=== PATIENT | male | born 1990 | race Caucasian/White ===

== ENCOUNTER 2016-09-09 02:31 | Emergency (ER) | payer MEDICAID ==
[2016-09-09 02:45] VITALS: BP 132/91
[2016-09-09] MEDS ORDERED: Ketorolac 60 MG/2 ML SDV IM ONE (03:02)
--- NOTE | 2016-09-09 03:12 | EDM.PDOC ---
[id number] Complaint: PINCH NERVE IN LEG Time Seen by Provider: 09/09/16 02:50 Source of Information: Reports: Patient History Limitations: Reports: No Limitations - History of Present Illness INITIAL COMMENTS - FREE TEXT/NARRATIVE: 26-year-old morbidly obese male fell asleep sitting in a chair 2 nights ago that had metal arms and slept with a prolonged pressure pushing on his left buttock area. When he awoke he had some soreness in the left buttock, which led to some muscle spasms in the dorsal left leg and buttock area. This is now getting intermittent pain and spasm and is having difficulty walking. He has chronic anxiety and pain makes him very anxious. He weighed 410 pounds when I saw him last January, he is now close to 460 pounds. He has had no fever or chills, he has no bruising Onset: Gradual (Over the last 2 days) Location: Reports: Lower Extremity, Left Severity: Moderate Worsens with: Reports: Other (Trying to stand causes increased pain), Movement Left Leg Pain Score (Numeric/FACES): 9 - Related Data Allergies Allergy/AdvReac Type Severity Reaction Status Date / Time No Known Allergies Allergy Verified 12/30/15 07:34 Home Meds: Home Meds Lisinopril [Lisinopril] 30 mg PO DAILY 09/06/15 [History] Zolpidem [Ambien] 10 mg PO BEDTIME 09/06/15 [History] Atenolol 100 mg PO DAILY 09/07/15 [History] Cholecalciferol (Vitamin D3) [D-2000] 2,000 unit PO DAILY 09/07/15 [History] Desmopressin [Desmopressin] 0.4 mg PO BEDTIME 09/07/15 [History] Divalproex Sodium [Depakote] 1,500 mg PO BEDTIME 09/07/15 [History] Glucosam/Chondroit/C/Manganese [Cosamin Ds Capsule] 1 each PO DAILY 09/07/15 [ History] Multivitamin [Multi-Vitamin Daily] 1 each PO DAILY 09/07/15 [History] [place]-3/DHA/Epa/Fish Oil [Fish Oil] 1,000 mg PO DAILY 09/07/15 [History] Paliperidone Palmitate [Invega Sustenna] 156 mg IM Q30D 09/07/15 [History] Pantoprazole [Protonix] 40 mg PO DAILY 09/07/15 [History] Sertraline [Zoloft] 100 mg PO DAILY 09/20/15 [History] ALPRAZolam [Xanax XR] 2 mg PO DAILY 02/16/16 [History] Past Medical History HEENT History: Reports: Impaired Vision Cardiovascular History: Reports: Hypertension Gastrointestinal History: Reports: Chronic Constipation, GERD Genitourinary History: Reports: Other (See Below) Other Genitourinary History: Nocturnal enuresis, nephrogenic diabetes insipidus Musculoskeletal History: Reports: Gout, Osteoarthritis Neurological History: Reports: Concussion Psychiatric History: Reports: Anxiety, Bipolar, Depression, Panic Attack, Psych Hospitalization(s), Schizophrenia Endocrine/Metabolic History: Reports: Hypothyroidism, Obesity/BMI 30+ - Infectious Disease History Infectious Disease History: Reports: Chicken Pox Social & Family History - Family History Family Medical History: Unobtainable - Tobacco Use Smoking Status *Q: Light Tobacco Smoker Years of Tobacco use: 1 Packs/Tins Daily: 1 Second Hand Smoke Exposure: No - Caffeine Use Caffeine Use: Reports: Coffee, Soda - Alcohol Use Days Per Week of Alcohol Use: 1 Number of Drinks Per Day: 6 Total Drinks Per Week: 6 - Recreational Drug Use Recreational Drug Use: No Drug Use in Last 12 Months: No Review of Systems - Review of Systems Review Of Systems: See Below Constitutional: Denies: Fever Respiratory: Denies: Shortness of Breath Cardiovascular: Denies: Chest Pain GI/Abdominal: Denies: Abdominal Pain Musculoskeletal: Reports: Leg Pain Psychiatric: Reports: Anxiety Trauma Exam - Physical Exam Exam: See Below Exam Limited By: Physical Impairment (Patient is so morbidly obese he is difficult to examine) General Appearance: Reports: Alert, No Apparent Distress Head: Reports: Atraumatic Respiratory Exam: Reports: No Respiratory Distress Extremities: No Evidence of Injury, Pain with Movement (He has increased pain when the left leg is dependent and when I passively flex his left hip it feels better. He has no straight leg raising pain or radiculopathy.) Course - Vital Signs Last Recorded V/S: Last Vital Signs Temp 97.6 F 09/09/16 02:44 Pulse 117 H 09/09/16 02:44 Resp 16 09/09/16 02:44 BP 132/91 H 09/09/16 02:44 Pulse Ox 93 L 05/15/17 02:44 - Orders/Labs/Meds Meds: Medications Discontinued Medications Generic Name Dose Route Start Last Admin Trade Name Braeden ROACH Reason Stop Dose Admin Ketorolac Tromethamine 60 mg 09/09/16 03:02 09/09/16 03:06 Toradol IM 09/09/16 03:03 60 mg ONETIME ONE Administration - Re-Assessments/Exams Free Text/Narrative Re-Assessment/Exam: 09/09/16 03:12 Patient was given 60 mg of Toradol IM. 09/09/16 03:50 After the patient was given a Toradol shot, 45 minutes later he was able to ambulate with a walker. He still had marked difficulty getting up from a sitting position but once he was standing and ambulating he did much better. He was discharged with 12 hydrocodone to help with pain over the next 2 days and he is to increase activity as tolerated. They do have a walker at home that he can use. If this is not significantly improved in 2-3 days he should recheck. Departure - Departure Time of Disposition: 04:09 Disposition: Home, Self-Care 01 Condition: fair Clinical Impression: Sciatica of left side - Discharge Information Instructions: Sciatica Referrals: PCP,None [Primary Care Provider] - Forms: ED Department Discharge Care Plan Goals: Continue with ibuprofen and add stronger pain medication as prescribed. Increase activity as tolerated recheck in 2-3 days if not improving satisfactorily. Return sooner if worsening or unable to move around at home.
== END 2016-09-09 04:09 | disposition home or self-care (01) ==
LOC: JP.ED 02:31
DX: M54.32 Sciatica, left side (principal); I10 Essential (primary) hypertension; K21.9 Gastro-esophageal reflux disease without esophagitis; F41.0 Panic disorder [episodic paroxysmal anxiety]; F32.9 Major depressive disorder, single episode, unspecified; F31.9 Bipolar disorder, unspecified; E03.9 Hypothyroidism, unspecified; F17.210 Nicotine dependence, cigarettes, uncomplicated; E66.9 Obesity, unspecified; Z68.44 Body mass index [BMI] 60.0-69.9, adult; Z79.899 Other long term (current) drug therapy
CPT/HCPCS: 96372; 99283; J1885

== ENCOUNTER 2016-09-13 13:23 | Emergency (ER) | payer MEDICAID ==
[2016-09-13 13:40] VITALS: BP 151/85
[2016-09-13] MEDS ORDERED: Ketorolac 60 MG/2 ML SDV IM ONE (13:55)
--- NOTE | 2016-09-13 14:17 | EDM.PDOC ---
[id number] Complaint: SCIATIC PAIN Time Seen by Provider: 09/13/16 13:50 Source of Information: Reports: Patient History Limitations: Reports: No Limitations - History of Present Illness INITIAL COMMENTS - FREE TEXT/NARRATIVE: 26-year-old male in with persistent left hip and thigh discomfort. He was seen 2 nights ago and was unable to bear weight or get up out of the chair. He has used up his hydrocodone and is wondering if he can get more pain medications. However the patient is moving freely now, walking up and down the hallway and getting in and out of the chair without significant discomfort. Onset: Gradual (Over the past 4 days) Location: Reports: Other (Left upper leg and lateral left buttock) Severity: Mild - Related Data Allergies Allergy/AdvReac Type Severity Reaction Status Date / Time No Known Allergies Allergy Verified 12/30/15 07:34 Home Meds: Home Meds Lisinopril [Lisinopril] 30 mg PO DAILY 09/06/15 [History] Zolpidem [Ambien] 10 mg PO BEDTIME 09/06/15 [History] Atenolol 100 mg PO DAILY 09/07/15 [History] Cholecalciferol (Vitamin D3) [D-2000] 2,000 unit PO DAILY 09/07/15 [History] Desmopressin [Desmopressin] 0.4 mg PO BEDTIME 09/07/15 [History] Divalproex Sodium [Depakote] 1,500 mg PO BEDTIME 09/07/15 [History] Glucosam/Chondroit/C/Manganese [Cosamin Ds Capsule] 1 each PO DAILY 09/07/15 [ History] Multivitamin [Multi-Vitamin Daily] 1 each PO DAILY 09/07/15 [History] [place]-3/DHA/Epa/Fish Oil [Fish Oil] 1,000 mg PO DAILY 09/07/15 [History] Paliperidone Palmitate [Invega Sustenna] 156 mg IM Q30D 09/07/15 [History] Pantoprazole [Protonix] 40 mg PO DAILY 09/07/15 [History] Sertraline [Zoloft] 100 mg PO DAILY 09/20/15 [History] ALPRAZolam [Xanax XR] 2 mg PO DAILY 02/16/16 [History] Past Medical History HEENT History: Reports: Impaired Vision Cardiovascular History: Reports: Hypertension Gastrointestinal History: Reports: Chronic Constipation, GERD Genitourinary History: Reports: Other (See Below) Other Genitourinary History: Nocturnal enuresis, nephrogenic diabetes insipidus Musculoskeletal History: Reports: Gout, Osteoarthritis Neurological History: Reports: Concussion Psychiatric History: Reports: Anxiety, Bipolar, Depression, Panic Attack, Psych Hospitalization(s), Schizophrenia Endocrine/Metabolic History: Reports: Hypothyroidism, Obesity/BMI 30+ - Infectious Disease History Infectious Disease History: Reports: Chicken Pox Social & Family History - Family History Family Medical History: Unobtainable - Tobacco Use Smoking Status *Q: Current Every Day Smoker Years of Tobacco use: 1 Packs/Tins Daily: 1 Second Hand Smoke Exposure: No - Caffeine Use Caffeine Use: Reports: Coffee, Soda - Alcohol Use Days Per Week of Alcohol Use: 1 Number of Drinks Per Day: 6 Total Drinks Per Week: 6 - Recreational Drug Use Recreational Drug Use: No Drug Use in Last 12 Months: No Review of Systems - Review of Systems Review Of Systems: See Below Constitutional: Denies: Fever Respiratory: Denies: Shortness of Breath Cardiovascular: Denies: Chest Pain GI/Abdominal: Denies: Abdominal Pain Skin: Reports: Other (Some erythema, chronic, of the lower extremities) Trauma Exam - Physical Exam Exam: See Below Exam Limited By: No Limitations General Appearance: Reports: Alert, No Apparent Distress Head: Reports: Atraumatic Respiratory Exam: Reports: No Respiratory Distress Extremities: No Evidence of Injury, Other (Now is bearing weight with minimal pain, ambulating without pain) Course - Vital Signs Last Recorded V/S: Last Vital Signs Temp 97.3 F 09/13/16 13:38 Pulse 76 09/13/16 13:38 Resp 14 09/13/16 13:38 BP 151/85 H 09/13/16 13:38 Pulse Ox 94 L 09/13/16 13:38 - Orders/Labs/Meds Meds: Medications Discontinued Medications Generic Name Dose Route Start Last Admin Trade Name Braeden PRN Reason Stop Dose Admin Ketorolac Tromethamine 60 mg 09/13/16 13:55 09/13/16 14:05 Toradol IM 09/13/16 13:56 60 mg ONETIME ONE Administration - Re-Assessments/Exams Free Text/Narrative Re-Assessment/Exam: 09/13/16 14:15 Patient was given another injection of Toradol 60 mg IM, and 10 additional 10 mg ketorolac doses to take 3 times a day for the next 3 days. No further narcotics are necessary at this time, he can return if worsening or concerns. 09/13/16 16:14 After his father arrived we arranged through social worker clinical a home care visit and this patient may need assistance and his father hopefully understands he needs to control the enabling Departure - Departure Time of Disposition: 16:00 Disposition: Home, Self-Care 01 Condition: good Clinical Impression: Sciatica of left side - Discharge Information Instructions: Sciatica, [id number] Referrals: Vic Holt MD [Primary Care Provider] - ([facility] referral made. [facility] contacted. [facility].) Forms: ED Department Discharge Care Plan Goals: Take the medication 3 times a day until gone, and continue to increase activity as tolerated. Return for recheck with your primary provider if not improving satisfactorily, or return to ER if worsening or concerns.
== END 2016-09-13 16:02 | disposition home or self-care (01) ==
LOC: JP.ED 13:23
DX: M54.32 Sciatica, left side (principal); I10 Essential (primary) hypertension; K21.9 Gastro-esophageal reflux disease without esophagitis; F41.9 Anxiety disorder, unspecified; F17.210 Nicotine dependence, cigarettes, uncomplicated; F32.9 Major depressive disorder, single episode, unspecified; E03.9 Hypothyroidism, unspecified; E66.9 Obesity, unspecified; M10.9 Gout, unspecified; M19.90 Unspecified osteoarthritis, unspecified site; Z68.30 Body mass index [BMI] 30.0-30.9, adult; Z79.899 Other long term (current) drug therapy
CPT/HCPCS: 96372; 99283; J1885

== ENCOUNTER 2016-11-26 11:15 | Inpatient (IN) | payer MEDICAID ==
[2016-11-26] MEDS ORDERED: Sodium Chloride 0.9% 1,000 ML IV SCH (11:45)
--- NOTE | 2016-11-26 12:34 | EDM.PDOC ---
ED HPI GENERAL MEDICAL PROBLEM - General Chief Complaint: General Stated Complaint: MEDICAL VIA [facility]TH Time Seen by Provider: 11/26/16 12:15 Source of Information: Reports: Patient, EMS Notes Reviewed, Family History Limitations: Reports: No Limitations - History of Present Illness INITIAL COMMENTS - FREE TEXT/NARRATIVE: pt feels he has been having more problems with his sciatic nerve..He did fall in the apartment today. He was not able to walk as he usually does . He was taken out the window of his apartment. He was found to have n infection involving the lower portion of his body. Onset: Gradual Duration: Day(s):, Getting Worse Location: Reports: Abdomen, Lower Extremity, Left, Lower Extremity, Right Quality: Reports: Other ( He is having pain in the left axilla) Severity: Moderate Associated Symptoms: Reports: Other ( pain in his back and going down his left leg. ) - Related Data Allergies Allergy/AdvReac Type Severity Reaction Status Date / Time No Known Allergies Allergy Verified 11/26/16 11:47 Home Meds: Home Meds Lisinopril [Lisinopril] 30 mg PO DAILY 09/06/15 [History] Zolpidem [Ambien] 10 mg PO BEDTIME 09/06/15 [History] Atenolol 100 mg PO DAILY 09/07/15 [History] Cholecalciferol (Vitamin D3) [D-2000] 2,000 unit PO DAILY 09/07/15 [History] Divalproex Sodium [Depakote] 1,500 mg PO BEDTIME 09/07/15 [History] Glucosam/Chondroit/C/Manganese [Cosamin Ds Capsule] 1 each PO DAILY 09/07/15 [ History] Multivitamin [Multi-Vitamin Daily] 1 each PO DAILY 09/07/15 [History] [place]-3/DHA/Epa/Fish Oil [Fish Oil] 1,000 mg PO DAILY 09/07/15 [History] Paliperidone Palmitate [Invega Sustenna] 156 mg IM Q30D 09/07/15 [History] Pantoprazole [Protonix] 40 mg PO DAILY 09/07/15 [History] Sertraline [Zoloft] 100 mg PO DAILY 09/20/15 [History] ALPRAZolam [Xanax XR] 2 mg PO DAILY 02/16/16 [History] Past Medical History HEENT History: Reports: Impaired Vision Cardiovascular History: Reports: Hypertension Gastrointestinal History: Reports: Chronic Constipation, GERD Genitourinary History: Reports: Other (See Below) Other Genitourinary History: Nocturnal enuresis, nephrogenic diabetes insipidus Musculoskeletal History: Reports: Gout, Osteoarthritis Neurological History: Reports: Concussion Psychiatric History: Reports: Anxiety, Bipolar, Depression, Panic Attack, Psych Hospitalization(s), Schizophrenia Endocrine/Metabolic History: Reports: Hypothyroidism, Obesity/BMI 30+ - Infectious Disease History Infectious Disease History: Reports: Chicken Pox Social & Family History - Family History Family Medical History: Unobtainable - Tobacco Use Smoking Status *Q: Current Every Day Smoker Years of Tobacco use: 1 Packs/Tins Daily: 1 Second Hand Smoke Exposure: No - Caffeine Use Caffeine Use: Reports: Coffee, Soda - Alcohol Use Days Per Week of Alcohol Use: 1 Number of Drinks Per Day: 6 Total Drinks Per Week: 6 - Recreational Drug Use Recreational Drug Use: No Drug Use in Last 12 Months: No ED ROS GENERAL - Review of Systems Review Of Systems: See Below Constitutional: Reports: No Symptoms HEENT: Reports: No Symptoms Respiratory: Reports: No Symptoms Cardiovascular: Reports: No Symptoms Endocrine: Reports: No Symptoms GI/Abdominal: Reports: Other (pain in the left axilla and lower leg and lower portion of the abdoman. He has been having bms. He has been passing his urine. ) Musculoskeletal: Reports: No Symptoms Skin: Reports: No Symptoms ED EXAM, GENERAL - Physical Exam Exam: See Below Free Text/Narrative:: Pt has reached a level where he has difficulty moving about. He has not showered for the past 2 days. He has not vomited. He has pain in the left axilla and in the groin. He is getting wet when he goes to urinate. Exam Limited By: No Limitations General Appearance: Alert, Anxious, Moderate Distress Ears: Normal TMs Nose: Normal Inspection Throat/Mouth: Normal Inspection Head: Atraumatic Neck: Normal Inspection Respiratory/Chest: No Respiratory Distress Cardiovascular: Regular Rate, Rhythm GI/Abdominal: Other (upper portion is soft. The lower portion of the abdoman is firm and indurated. ) (Male) Exam: Other ( The penis is barely visable but we were able to get a lord cath in. ) Rectal (Males) Exam: Deferred Back Exam: Other ( tender on the left side. ) Extremities: Other (Pt has marked induration in the inner aspect of the thisghes. The skin is redened but does not feel hot. ) Neurological: Alert, Oriented Psychiatric: Depressed Mood Course - Vital Signs Last Recorded V/S: Last Vital Signs Temp 36.7 C 11/26/16 12:13 Pulse 108 H 11/26/16 12:13 Resp 24 H 11/26/16 12:13 BP 123/79 11/26/16 12:13 Pulse Ox 94 L 11/26/16 12:13 - Orders/Labs/Meds Orders: Active Orders 24 hr Category Date Time Status Lord Catheter Insertion [Insert Urinary Catheter] [OM. Care 11/26/16 12:00 Ordered PC] Q24H Urinary Catheter Assessment [RC] ASDIRECTED Care 11/26/16 11:53 Active CRP [C-REACTIVE PROTEIN] [CHEM] Stat Lab 11/26/16 12:24 Ordered CULTURE BLOOD [BC] Urgent Lab 11/26/16 11:40 Received CULTURE BLOOD [BC] Urgent Lab 11/26/16 11:44 Received Sodium Chloride 0.9% [Normal Saline] 1,000 ml Med 11/26/16 11:45 Active IV ASDIRECTED Blood Culture x2 Reflex Set [OM.PC] Urgent Oth 11/26/16 11:38 Ordered Medication Orders Sodium Chloride (Normal Saline) 1,000 mls @ 500 mls/hr IV ASDIRECTED MIKE Labs: Laboratory Tests 11/26/16 11/26/16 11/26/16 Range/Units 11:40 11:40 11:50 WBC 10.0 (4.5-11.0) K/uL RBC 4.66 (4.30-5.90) M/uL Hgb 12.0 D (12.0-15.0) g/dL Hct 40.2 (40.0-54.0) % MCV 86 (80-98) fL MCH 26 L (27-31) pg MCHC 30 L (32-36) % Plt Count 269 (150-400) K/uL Neut % (Auto) 78 H (36-66) % Lymph % (Auto) 11 L (24-44) % [place] % (Auto) 10 H (2-6) % Eos % (Auto) 0 L (2-4) % Baso % (Auto) 1 (0-1) % Sodium 136 L (140-148) mmol/L Potassium 4.8 (3.6-5.2) mmol/L Chloride 100 (100-108) mmol/L Carbon Dioxide 33 H (21-32) mmol/L Anion Gap 7.8 (5.0-14.0) mmol/L BUN 31 H D (7-18) mg/dL Creatinine 1.2 D (0.8-1.3) mg/dL Est Cr Clr Drug Dosing 93.28 mL/min Estimated GFR (MDRD) > 60 (>60) Glucose 79 (74-106) mg/dL Calcium 8.8 (8.5-10.1) mg/dL Total Bilirubin 1.4 H D (0.2-1.0) mg/dL AST 23 (15-37) U/L ALT 21 D (12-78) U/L Alkaline Phosphatase 84 (46-116) U/L Total Protein 7.3 (6.4-8.2) g/dL Albumin 2.9 L (3.4-5.0) g/dL Globulin 4.4 H (2.3-3.5) g/dL Albumin/Globulin Ratio 0.7 L (1.2-2.2) Urine Color Yellow Urine Appearance Slightly cloudy Urine pH 5.0 (4.5-8.0) Ur Specific [place] 1.010 (1.008-1.030) Urine Protein Trace (NEGATIVE) mg/dL Urine Glucose (UA) Normal (NEGATIVE) mg/dL Urine Ketones Negative (NEGATIVE) mg/dL Urine Occult Blood Negative (NEGATIVE) Urine Nitrite Negative (NEGAITVE) Urine Bilirubin Small (NEGATIVE) Urine Urobilinogen 4 (NORMAL) mg/dL Ur Leukocyte Esterase Negative (NEGATIVE) Urine RBC 0-5 (0-5) Urine WBC 0-5 (0-5) Ur Epithelial Cells Few Amorphous Sediment Few Urine Bacteria Few Urine Mucus Few Meds: Medications Generic Name Dose Route Start Last Admin Trade Name Freq PRN Reason Stop Dose Admin Sodium Chloride 1,000 mls @ 500 mls/hr 11/26/16 11:45 Normal Saline IV ASDIRECTED MIKE - Re-Assessments/Exams Free Text/Narrative Re-Assessment/Exam: 11/26/16 12:41 Pt does not have a fever or an elevation in his wbc. Departure - Departure Time of Disposition: 12:41 Disposition: Admitted As Inpatient 66 Condition: Fair Clinical Impression: Fluid overload, Cellulitis, Obesity - Discharge Information Forms: ED Department Discharge Care Plan Goals: admit to Dr ortiz. - My Orders Last 24 Hours: My Active Orders 11/26/16 11:38 Blood Culture x2 Reflex Set [OM.PC] Urgent 11/26/16 11:40 CULTURE BLOOD [BC] Urgent 11/26/16 11:44 CULTURE BLOOD [BC] Urgent 11/26/16 11:45 Sodium Chloride 0.9% [Normal Saline] 1,000 ml IV ASDIRECTED 11/26/16 11:53 Urinary Catheter Assessment [RC] ASDIRECTED 11/26/16 12:00 Lord Catheter Insertion [Insert Urinary Catheter] [OM.PC] Q24H 11/26/16 12:24 CRP [C-REACTIVE PROTEIN] [CHEM] Stat - Assessment/Plan Last 24 Hours: My Active Orders 11/26/16 11:38 Blood Culture x2 Reflex Set [OM.PC] Urgent 11/26/16 11:40 CULTURE BLOOD [BC] Urgent 11/26/16 11:44 CULTURE BLOOD [BC] Urgent 11/26/16 11:45 Sodium Chloride 0.9% [Normal Saline] 1,000 ml IV ASDIRECTED 11/26/16 11:53 Urinary Catheter Assessment [RC] ASDIRECTED 11/26/16 12:00 Lord Catheter Insertion [Insert Urinary Catheter] [OM.PC] Q24H 11/26/16 12:24 CRP [C-REACTIVE PROTEIN] [CHEM] Stat
[2016-11-26] MEDS ORDERED: Acetaminophen 325 MG Tab PO PRN (14:33)
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
[2016-11-26] MEDS ORDERED: Furosemide 100 MG in Sodium Chloride 0.9% 90 ML IV SCH (15:15)
[2016-11-26] MEDS: Furosemide 20 MG/2 ML VIAL IVPUSH SCH ×3 (18:03→22:31)
[2016-11-26] MEDS: Nicotine Polacrilex 2 MG Gum CHEW PRN (18:50)
[2016-11-26] MEDS: Ketorolac 60 MG/2 ML SDV IM PRN (18:50)
[2016-11-26] MEDS ORDERED: ALPRAZolam 0.5 MG Tab PO SCH (21:00)
[2016-11-26] MEDS: Zolpidem 5 MG Tab PO SCH (22:27)
[2016-11-26] MEDS: Divalproex Sodium Delayed-Release 250 MG Tab.CR PO SCH (22:28)
[2016-11-27] MEDS: Furosemide 20 MG/2 ML VIAL IVPUSH SCH ×5 (02:34→20:11)
[2016-11-27] MEDS ORDERED: Rivaroxaban 15 MG Tab PO SCH (08:00)
[2016-11-27] MEDS ORDERED: Furosemide 20 MG/2 ML VIAL IVPUSH SCH (08:00)
[2016-11-27] MEDS ORDERED: Sodium Chloride 0.9% 10 ML Syringe FLUSH PRN (08:27)
[2016-11-27] MEDS ORDERED: Iopamidol 755 Mg/ML 100 ML Bottle IV SCH (08:30)
[2016-11-27] MEDS ORDERED: Sodium Chloride 0.9% 100 ML IV SCH (08:30)
--- NOTE | 2016-11-27 08:31 | PCM.PN ---
- General Info Date of Service: 11/27/16 Functional Status: Reports: Pain Controlled - Review of Systems General: Reports: Weakness Pulmonary: Reports: Shortness of Breath Cardiovascular: Reports: Palpitations, Edema Genitourinary: Reports: Other (cath. in place) Psychiatric: Reports: Depression - Patient Data Vitals - Most Recent: Last Vital Signs Temp 97.5 F 11/27/16 07:23 Pulse 129 H 11/27/16 07:45 Resp 58 H 11/27/16 07:45 BP 141/84 H 11/27/16 07:45 Pulse Ox 94 L 11/27/16 07:55 Weight - Most Recent: 535 lb I&O - Last 24 Hours: Intake & Output 11/26/16 11/27/16 11/27/16 22:59 06:59 14:59 Intake Total 1909 1430 Output Total 0284 6349 Balance -2991 -3256 Lab Results Last 24 Hours: Laboratory Results - last 24 hr 11/27/16 11/27/16 11/27/16 Range/Units 06:05 06:19 06:19 WBC 9.3 (4.5-11.0) K/uL RBC 4.77 (4.30-5.90) M/uL Hgb 12.4 (12.0-15.0) g/dL Hct 41.9 (40.0-54.0) % MCV 88 (80-98) fL MCH 26 L (27-31) pg MCHC 30 L (32-36) % Plt Count 238 (150-400) K/uL D-Dimer, Quantitative (0.0-400.0) ng/mL Puncture Site L brachial ABG pH 7.368 (7.350-7.450) ABG pCO2 61.4 H (35.0-42.0) mmHg ABG pO2 57.6 L (75.0-100.0) mmHg ABG HCO3 34.5 H (22.0-26.0) mmol/L ABG Total CO2 31.4 H (23.0-27.0) mmol/L ABG O2 Saturation 89.3 L (95.0-98.0) % ABG O2 Content 14.3 L (15.0-23.0) %vol ABG Base Excess 7.7 mm/L ABG Hemoglobin 12.3 L (13.5-18.0) g/dL ABG Oxyhemoglobin 82.8 % ABG Carboxyhemoglobin 6.5 H (0.0-1.6) % ABG Methemoglobin 0.8 % O2 Delivery Device Cpap Oxygen Flow Rate 3 L Sodium 141 (140-148) mmol/L Potassium 4.6 (3.6-5.2) mmol/L Chloride 101 (100-108) mmol/L Carbon Dioxide 36 H (21-32) mmol/L Anion Gap 8.6 (5.0-14.0) mmol/L BUN 21 H (7-18) mg/dL Creatinine 0.9 (0.8-1.3) mg/dL Est Cr Clr Drug Dosing 124.38 mL/min Estimated GFR (MDRD) > 60 (>60) Glucose 87 (74-106) mg/dL Calcium 8.3 L (8.5-10.1) mg/dL 11/27/16 Range/Units 06:25 WBC (4.5-11.0) K/uL RBC (4.30-5.90) M/uL Hgb (12.0-15.0) g/dL Hct (40.0-54.0) % MCV (80-98) fL MCH (27-31) pg MCHC (32-36) % Plt Count (150-400) K/uL D-Dimer, Quantitative 2110 H (0.0-400.0) ng/mL Puncture Site ABG pH (7.350-7.450) ABG pCO2 (35.0-42.0) mmHg ABG pO2 (75.0-100.0) mmHg ABG HCO3 (22.0-26.0) mmol/L ABG Total CO2 (23.0-27.0) mmol/L ABG O2 Saturation (95.0-98.0) % ABG O2 Content (15.0-23.0) %vol ABG Base Excess mm/L ABG Hemoglobin (13.5-18.0) g/dL ABG Oxyhemoglobin % ABG Carboxyhemoglobin (0.0-1.6) % ABG Methemoglobin % O2 Delivery Device Oxygen Flow Rate L Sodium (140-148) mmol/L Potassium (3.6-5.2) mmol/L Chloride (100-108) mmol/L Carbon Dioxide (21-32) mmol/L Anion Gap (5.0-14.0) mmol/L BUN (7-18) mg/dL Creatinine (0.8-1.3) mg/dL Est Cr Clr Drug Dosing mL/min Estimated GFR (MDRD) (>60) Glucose (74-106) mg/dL Calcium (8.5-10.1) mg/dL Med Orders - Current: Current Medications Acetaminophen (Tylenol) 650 mg PO Q4H PRN PRN Reason: Pain Alprazolam (Xanax) 1 mg PO BID [facility] Last Admin: 11/26/16 22:28 Dose: 1 mg Atenolol (Tenormin) 100 mg PO DAILY [facility] Cholecalciferol (Vitamin D3) 2,000 units PO DAILY [facility] Divalproex Sodium (Divalproex Sodium) 1,500 mg PO BEDTIME [facility] Last Admin: 11/26/16 22:28 Dose: 1,500 mg Fish Oil (Fish Oil) 1 gm PO DAILY [facility] Furosemide (Lasix) 20 mg IVPUSH Q2H [facility] Ketorolac Tromethamine (Toradol) 60 mg IM Q6H PRN PRN Reason: Pain Stop: 12/01/16 14:32 Last Admin: 11/26/16 18:50 Dose: 60 mg Lisinopril (Prinivil) 30 mg PO DAILY [facility] Multivitamins/Minerals (Thera M Plus) 1 tab PO DAILY [facility] Nicotine Polacrilex (Nicorelief) 2 mg CHEW Q2H PRN PRN Reason: Other Last Admin: 11/26/16 18:50 Dose: 2 mg Glucosam/Chondroit/C (/Manganese (Ptom)) 1 each PO DAILY [facility] Non-Formulary Medication (Paliperidone Palmitate [Invega Sustenna]) 234 mg IM Q30D [facility] Pantoprazole Sodium (Protonix) 40 mg PO ACBREAKFAST [facility] Rivaroxaban (Xarelto) 15 mg PO Q12H [facility] Sertraline HCl (Zoloft) 100 mg PO DAILY [facility] Zolpidem Tartrate (Ambien) 10 mg PO BEDTIME [facility] Last Admin: 11/26/16 22:27 Dose: 10 mg Discontinued Medications Furosemide (Lasix) 20 mg IVPUSH Q2H [facility] Last Admin: 11/27/16 04:21 Dose: 20 mg Sodium Chloride (Normal Saline) 1,000 mls @ 75 mls/hr IV ASDIRECTED [facility] Furosemide 100 mg/ Sodium (Chloride) 100 mls @ 13.9 mls/hr IV TITRATE MIKE PRN Reason: Protocol Last Admin: 11/26/16 16:25 Dose: 13.9 ml/hr, 13.9 mls/hr Invega Sustenna 156 (Mg) 156 mg IM Q30D MIKE - Exam General: Cooperative, Moderate Distress, Lethargic HEENT: Pupils Equal, Pupils Reactive, EOMI, Mucous Membr. Moist/[place] Lungs: Clear to Auscultation, Normal Respiratory Effort Cardiovascular: Irregular Rhythm, Tachycardia GI/Abdominal Exam: Normal Bowel Sounds Extremities: Pedal Edema Skin: Warm, Dry, Intact - Problem List Review Problem List Initiated/Reviewed/Updated: Yes - My Orders Last 24 Hours: My Active Orders 11/26/16 14:28 Consult to Dietary [Consult to Proj Mgr] [CONS] Routine 11/26/16 14:32 Ketorolac [Toradol] 60 mg IM Q6H PRN 11/26/16 14:33 Acetaminophen [Tylenol] 650 mg PO Q4H PRN 11/26/16 14:38 Communication Order [RC] ASDIRECTED 11/26/16 18:28 Nicotine Polacrilex [Nicorelief] 2 mg CHEW Q2H PRN 11/26/16 21:00 ALPRAZolam [Xanax] 1 mg PO BID Divalproex Sodium 1,500 mg PO BEDTIME Zolpidem [Ambien] 10 mg PO BEDTIME 11/26/16 Dinner Consistent Carbohydrate Diet [DIET] 11/27/16 05:44 EKG Documentation Completion [RC] ASDIRECTED EKG 12 Lead [EK] Routine 11/27/16 06:47 Telemetry Monitoring [Cardiac Monitoring] [RC] .As Directed 11/27/16 06:48 Overnight Pulse Oximetry [RC] Click to Edit Pulse Oximetry Continuous Monitoring [OM.PC] Routine 11/27/16 07:28 Respiratory Care Assess and Treatment [CONS] Routine 11/27/16 07:30 Pantoprazole [ProTONIX] 40 mg PO ACBREAKFAST 11/27/16 08:00 Furosemide [Lasix] 20 mg IVPUSH Q2H Rivaroxaban [Xarelto] 15 mg PO Q12H 11/27/16 08:10 Ang Chest [CT] Stat 11/27/16 09:00 Atenolol [Tenormin] 100 mg PO DAILY Cholecalciferol (Vitamin D3) [Vitamin D3] 2,000 units PO DAILY Fish Oil/[place]-3 Fatty Acids [Fish Oil] 1 gm PO DAILY Glucosam/Chondroit/C/Manganese [Cosamin Ds Capsule] 1 each PO DAILY Lisinopril [Prinivil] 30 mg PO DAILY Multivitamins w-Iron/Ca/FA/Min [Thera M Plus] 1 tab PO DAILY Sertraline [Zoloft] 100 mg PO DAILY 11/28/16 10:00 Paliperidone Palmitate [Invega Sustenna] 234 mg IM Q30D - Plan Plan:: Assessment/plan: #1. Lymph Edema: responded to Lasix with fluid output throughout the night. This morning he became short of breath and O2 dropped. Expected PE. D-dimer is 0. CT with PE protocal is pending. Started him on Xarelto this morning and will confirm a PE this Morning. He will be in the ICU as his CO2 is elevated and O2 89% on 5 liters. I have consulted the Hospitalist to manage as I will be out of town beginning tomorrow. #2. F25.9 Schizoaffective disorder: Continue with meds/home #3. E66.01 Morbid (severe) ovesity #4. M10.9 Gout: #5. F41.9 Anxiety disorder unspecfied. #6. I10 Essential primary hypertension
[2016-11-27] MEDS ORDERED: GLUCOSAM PO SCH (09:00)
[2016-11-27] MEDS ORDERED: Fish Oil/Omega-3 Fatty Acids 1 Gm Cap PO SCH (09:00)
[2016-11-27] MEDS ORDERED: [UNRECOGNIZED DRUG - OTHER] PO SCH (09:00)
[2016-11-27] MEDS ORDERED: Atenolol 50 MG Tab PO SCH (09:00)
[2016-11-27] MEDS ORDERED: CHONDROIT PO SCH (09:00)
[2016-11-27] MEDS ORDERED: Cholecalciferol (Vitamin D3) 1,000 Unit Tab PO SCH (09:00)
[2016-11-27] MEDS ORDERED: Lisinopril 10 MG Tab PO SCH (09:00)
[2016-11-27] MEDS ORDERED: MANGANESE PO SCH (09:00)
[2016-11-27] MEDS ORDERED: Multivitamins with Iron/Calcium/Folic Acid/Minerals Tab PO SCH (09:00)
--- NOTE | 2016-11-27 09:30 | CT ---
CT angiogram chest. Indication: PE. Total DLP 1260. Findings: Cardiomegaly. No evidence for dissection within the aorta. Aorta is best visualized within the thoracic cavity due to the bolus. The upper abdominal aorta is limited. Mediastinal lipomatosis . The main pulmonary arteries are clear. Lobar pulmonary arteries are clear as well. Limitations of the segmental and subsegmental pulmonary arteries. Probable dependent atelectasis with streaky densi ty within the lingula rather than definitive infiltrate. Trace pleural effusions within the bilatera l lung bases. Ascites fluid about the liver which is mild-moderate and spleen. Hepatomegaly. Impression: 1. No gross evidence for pulmonary artery embolus were visualized. Limitations as described above. F indings discussed with Dr. Freitas. 2. Body wall edema, pleural effusions and ascites fluid.
--- NOTE | 2016-11-27 10:22 | PCM.CONS ---
H&P History of Present Illness - General Date of Service: 11/27/16 Admit Problem/Dx: Admission Diagnosis/Problem Admission Diagnosis/Problem Obesity Source of Information: Provider. No: Patient History Limitations: Reports: Altered Mental Status - History of Present Illness Initial Comments - Free Text/Narative: Rahat was admitted yesterday for management of anasarca in the setting of morbid obesity. I was asked to see him by Dr Freitas after he developed rapid afib and hypoxic and hypercapneic resp failure and was transferred to the ICU. He is obtunded at the time of my evaluation unable to answer any questions. Per admission report he had been suffering from increasing weakness prior to presentation yesterday. Workup in the emergency room was concerning for significant volume overload and he was started on an aggressive diuresis with furosemide. He did have a good diuresis with more than 6 L out yesterday but unfortunately overnight developed worsening hypoxia and had increases in his heart rate to the 120 range. His respiratory rate increased to the 50s overnight. He was evaluated early this morning and blood gases showed a normal pH but elevated CO2 and low oxygen despite supplemental oxygenation. A CT pulmonary injury gram was performed and did not show evidence for ulnar embolism or pneumonia. He did have small bilateral effusions as well as significant anasarca and ascites. He has been on noninvasive ventilation since this morning. Limited bedside ultrasound of the heart today showed grossly normal left ventricular function. Right ventricle appeared to be functioning normally but was mildly dilated. sciatic left thigh Pain Score (Numeric/FACES): 6 - Related Data Allergies/Adverse Reactions: Allergies Allergy/AdvReac Type Severity Reaction Status Date / Time No Known Allergies Allergy Verified 11/26/16 11:47 Home Medications: Home Meds Lisinopril [Lisinopril] 30 mg PO DAILY 09/06/15 [History] Zolpidem [Ambien] 10 mg PO BEDTIME 09/06/15 [History] Atenolol 100 mg PO DAILY 09/07/15 [History] Cholecalciferol (Vitamin D3) [D-2000] 2,000 unit PO DAILY 09/07/15 [History] Divalproex Sodium [Depakote] 1,500 mg PO BEDTIME 09/07/15 [History] Glucosam/Chondroit/C/Manganese [Cosamin Ds Capsule] 1 each PO DAILY 09/07/15 [ History] Multivitamin [Multi-Vitamin Daily] 1 each PO DAILY 09/07/15 [History] [place]-3/DHA/Epa/Fish Oil [Fish Oil] 1,000 mg PO DAILY 09/07/15 [History] Paliperidone Palmitate [Invega Sustenna] 234 mg IM Q30D 09/07/15 [History] Pantoprazole [Protonix] 40 mg PO DAILY 09/07/15 [History] Sertraline [Zoloft] 100 mg PO DAILY 09/20/15 [History] ALPRAZolam [Xanax XR] 2 mg PO DAILY 02/16/16 [History] Desmopressin Acetate 2 tab PO BEDTIME 11/26/16 [History] Ibuprofen [Motrin] 600 mg PO BID 11/26/16 [History] Past Medical History HEENT History: Reports: Impaired Vision Cardiovascular History: Reports: Hypertension Gastrointestinal History: Reports: Chronic Constipation, GERD Genitourinary History: Reports: Other (See Below) Other Genitourinary History: Nocturnal enuresis, nephrogenic diabetes insipidus Musculoskeletal History: Reports: Gout, Osteoarthritis Neurological History: Reports: Concussion Psychiatric History: Reports: Anxiety, Bipolar, Depression, Panic Attack, Psych Hospitalization(s), Schizophrenia Endocrine/Metabolic History: Reports: Hypothyroidism, Obesity/BMI 30+ Dermatologic History: Reports: Other (See Below) Other Dermatologic History: rash in skin folds - Infectious Disease History Infectious Disease History: Reports: Chicken Pox Social & Family History - Family History Family Medical History: Unobtainable - Tobacco Use Smoking Status *Q: Current Every Day Smoker Years of Tobacco use: 1 Packs/Tins Daily: 1 Second Hand Smoke Exposure: No - Caffeine Use Caffeine Use: Reports: Coffee, Soda - Alcohol Use Days Per Week of Alcohol Use: 1 Number of Drinks Per Day: 6 Total Drinks Per Week: 6 - Recreational Drug Use Recreational Drug Use: No Drug Use in Last 12 Months: No H&P Review of Systems - Review of Systems: Review Of Systems: Unable To Obtain (Patient is currently obtunded) Exam - Exam Exam: See Below - Vital Signs Vital Signs: Last Vital Signs Temp 36.4 C 11/27/16 07:23 Pulse 117 H 11/27/16 09:43 Resp 15 11/27/16 09:43 BP 110/51 L 11/27/16 09:43 Pulse Ox 97 11/27/16 09:43 Weight: 242.672 kg - Exam Quality Assessment: Supplemental Oxygen, Urinary Catheter General: Obtunded. No: Alert HEENT: Conjunctiva Clear. No: Mucosa Moist & [place] (dry), Scleral Icterus Neck: Supple, Trachea Midline. No: Lymphadenopathy Lungs: Clear to Auscultation, Decreased Breath Sounds (Both bases). No: Normal Respiratory Effort (Increased work of breathing), Wheezing Cardiovascular: Irregular Rhythm, Tachycardia. No: Systolic Murmur GI/Abdominal Exam: Soft, Non-Tender, No Distention, Abnormal Bowel Sounds ( Hypoactive), Other (Obese) Back Exam: Other (2 x 2 centimeter stage I pressure ulcer over the sacrum). No : Normal Inspection Extremities: Other (Pitting edema of both legs from the feet all the way up to the waist). No: Increased Warmth Skin: Warm, Dry, Rash (Erythema over the chest and axilla consistent with stasis dermatitis), Other (Anasarca) Neuro Extensive - Mental Status: Withdraws to Pain. No: Alert Neuro Extensive - Motor, Sensory, Reflexes: No: Abnormal Motor (Unable to assess at this time), Tremor Psychiatric: Other (Obtunded). No: Alert - Patient Data Lab Results Last 24 hrs: Laboratory Results - last 24 hr 11/27/16 11/27/16 11/27/16 Range/Units 06:05 06:19 06:19 WBC 9.3 (4.5-11.0) K/uL RBC 4.77 (4.30-5.90) M/uL Hgb 12.4 (12.0-15.0) g/dL Hct 41.9 (40.0-54.0) % MCV 88 (80-98) fL MCH 26 L (27-31) pg MCHC 30 L (32-36) % Plt Count 238 (150-400) K/uL D-Dimer, Quantitative (0.0-400.0) ng/mL Puncture Site L brachial ABG pH 7.368 (7.350-7.450) ABG pCO2 61.4 H (35.0-42.0) mmHg ABG pO2 57.6 L (75.0-100.0) mmHg ABG HCO3 34.5 H (22.0-26.0) mmol/L ABG Total CO2 31.4 H (23.0-27.0) mmol/L ABG O2 Saturation 89.3 L (95.0-98.0) % ABG O2 Content 14.3 L (15.0-23.0) %vol ABG Base Excess 7.7 mm/L ABG Hemoglobin 12.3 L (13.5-18.0) g/dL ABG Oxyhemoglobin 82.8 % ABG Carboxyhemoglobin 6.5 H (0.0-1.6) % ABG Methemoglobin 0.8 % O2 Delivery Device Cpap Oxygen Flow Rate 3 L Sodium 141 (140-148) mmol/L Potassium 4.6 (3.6-5.2) mmol/L Chloride 101 (100-108) mmol/L Carbon Dioxide 36 H (21-32) mmol/L Anion Gap 8.6 (5.0-14.0) mmol/L BUN 21 H (7-18) mg/dL Creatinine 0.9 (0.8-1.3) mg/dL Est Cr Clr Drug Dosing 124.38 mL/min Estimated GFR (MDRD) > 60 (>60) Glucose 87 (74-106) mg/dL Calcium 8.3 L (8.5-10.1) mg/dL 11/27/16 Range/Units 06:25 WBC (4.5-11.0) K/uL RBC (4.30-5.90) M/uL Hgb (12.0-15.0) g/dL Hct (40.0-54.0) % MCV (80-98) fL MCH (27-31) pg MCHC (32-36) % Plt Count (150-400) K/uL D-Dimer, Quantitative 2110 H (0.0-400.0) ng/mL Puncture Site ABG pH (7.350-7.450) ABG pCO2 (35.0-42.0) mmHg ABG pO2 (75.0-100.0) mmHg ABG HCO3 (22.0-26.0) mmol/L ABG Total CO2 (23.0-27.0) mmol/L ABG O2 Saturation (95.0-98.0) % ABG O2 Content (15.0-23.0) %vol ABG Base Excess mm/L ABG Hemoglobin (13.5-18.0) g/dL ABG Oxyhemoglobin % ABG Carboxyhemoglobin (0.0-1.6) % ABG Methemoglobin % O2 Delivery Device Oxygen Flow Rate L Sodium (140-148) mmol/L Potassium (3.6-5.2) mmol/L Chloride (100-108) mmol/L Carbon Dioxide (21-32) mmol/L Anion Gap (5.0-14.0) mmol/L BUN (7-18) mg/dL Creatinine (0.8-1.3) mg/dL Est Cr Clr Drug Dosing mL/min Estimated GFR (MDRD) (>60) Glucose (74-106) mg/dL Calcium (8.5-10.1) mg/dL Result Diagrams: 11/27/16 06:19 11/27/16 06:19 Imaging Impressions Last 24 hrs: CT pulmonary angiogram - images personally reviewed and radiologist interpretation noted - there is no evidence for pulmonary embolism though exam was limited due to suboptimal timing of contrast bolus. No strong evidence for pneumonia or infiltrate. He does have very small bilateral effusions. Ascites noted in the upper abdomen. Consult PN Assessment/Plan Procedures: Procedures ASSAY OF TROPONIN QUANT (09/20/15) BLOOD TYPING SEROLOGIC ABO (03/16/15) BLOOD TYPING SEROLOGIC RH(D) (03/16/15) COMPLETE CBC W/AUTO DIFF WBC (09/20/15) COMPREHEN METABOLIC PANEL (09/20/15) ELECTROCARDIOGRAM TRACING (02/16/16) EMERGENCY DEPT VISIT (09/13/16) EMERGENCY DEPT VISIT (02/16/16) EMERGENCY DEPT VISIT (12/30/15) EMERGENCY DEPT VISIT (09/20/15) POLYSOM ANY AGE 1-3> [place] (11/14/15) RBC ANTIBODY SCREEN (03/16/15) ROUTINE VENIPUNCTURE (09/20/15) THER/PROPH/DIAG INJ SC/IM (09/13/16) URINALYSIS AUTO W/SCOPE (09/20/15) (1) Acute respiratory failure with hypoxia and hypercapnia SNOMED Code(s): 29458396, 631611063 Code(s): J96.01 - ACUTE RESPIRATORY FAILURE WITH HYPOXIA; J96.02 - ACUTE RESPIRATORY FAILURE WITH HYPERCAPNIA Current Visit: Yes (2) Anasarca SNOMED Code(s): 666999122, 681885181 Code(s): R60.1 - GENERALIZED EDEMA Current Visit: Yes (3) Morbid obesity with BMI of 70 and over, adult SNOMED Code(s): 530962936 Code(s): E66.01 - MORBID (SEVERE) OBESITY DUE TO EXCESS CALORIES; Z68.45 - BODY MASS INDEX (BMI) 70 OR GREATER, ADULT Current Visit: No Problem List Initiated/Reviewed/Updated: Yes My Orders Last 24 Hours: My Active Orders 11/27/16 10:17 Cardiac Monitoring [RC] .As Directed Overnight Pulse Oximetry [RC] Click to Edit Pulse Oximetry Continuous Monitoring [OM.PC] Routine 11/27/16 10:19 MAGNESIUM [CHEM] Urgent TROPONIN I [CHEM] Urgent 11/27/16 10:30 Diltiazem 100 MG in Normal Saline Adv @ 5 MG/HR(100ml) Diltiazem [Cardizem] 100 mg Sodium Chloride 0.9% [Normal Saline] 100 ml IV TITRATE 11/27/16 12:00 BLOOD GAS ARTERIAL [BG] Timed 11/27/16 12:30 Furosemide [Lasix] 20 mg IVPUSH Q8H 11/28/16 05:00 BASIC METABOLIC PANEL,BMP [CHEM] Timed CBC W/O DIFF,HEMOGRAM [HEME] Timed (1) TSH ULTRASENSITIVE [CHEM] Timed Plan: Assessment and plan - Acute respiratory failure with hypoxia and hypercapnia - etiology is not entirely clear but I suspect it's multifactorial. He has anasarca and I suspect a component of pulmonary edema although it's not visible on the CT scan. Gross left ventricular function appears to be normal. Right ventricle is functioning normally but is enlarged. Occult sleep apnea certainly could be considered as could obesity hypoventilation. No strong evidence for infection at this time. -Continue noninvasive ventilation -Scheduled and as needed nebulizers -Considered steroids -Repeat blood gases this afternoon -Continue aggressive diuresis Anasarca - Kidney function is normal. I suspect this is related to occult sleep apnea which has been undiagnosed. No strong evidence for congestive heart failure other than possibly diastolic failure or pulmonary hypertension. -Continue diuresis -Echo tomorrow -Strict monitoring of intake and output -Continue Solis catheter Atrial fibrillation with rapid ventricular response - He is normally on atenolol but is not able to take oral medications. Blood pressure is low normal at this time. Atrial fibrillation probably related to hypoxia and volume overload. Electrolytes acceptable. -Start diltiazem infusion -Cardiac monitoring -Optimize volume status Morbid obesity with BMI greater than 70 - Per report from yesterday patient does not seem to have a strong interest in changing dietary habits at this time. He is currently obtunded and I'm unable to discuss this with him. We will need to have some serious discussions once respiratory status improves. Essential hypertension - usual home medications will be on hold since he is unable to take medications and blood pressure is already low normal. Maintenance issues - - DVT prophylaxis - enoxaparin - GI prophylaxis - PPI - Nutrition - nothing by mouth until he wakes up - Solis catheter - placed at the time of admission for intake and output monitoring. This needs to be left in place with obtundation and need for strict intake and output monitoring. CODE STATUS - full code Disposition - pending at this time Frantz Kaur M.D. Requesting Provider: Dr. Freitas Date Consult Requested: 11/27/16 Reason for Consult: Hypoxic and hypercapnic respiratory failure Patient History Reviewed: Yes Admission H&P Reviewed: Yes Notified Requestor: No Time Spent (in minutes): 60
[2016-11-27] MEDS: Pantoprazole 40 MG Tab.CR PO SCH (10:59)
[2016-11-27] MEDS: Sertraline 50 MG Tab PO SCH (10:59)
[2016-11-27] MEDS: Diltiazem 100 MG in Sodium Chloride 0.9% 100 ML IV SCH ×2 (11:25→22:58)
[2016-11-27] MEDS ORDERED: Albuterol 0.083% 2.5 MG/3 ML Neb Soln NEB PRN (12:40)
[2016-11-27] MEDS: Albuterol 0.083% 2.5 MG/3 ML Neb Soln NEB SCH ×2 (14:04→21:40)
[2016-11-27] MEDS: Ketorolac 60 MG/2 ML SDV IM PRN (15:14)
[2016-11-27] MEDS: Heparin Sodium 5,000 UNITS in Sodium Chloride 0.9% 500 ML IV SCH (15:30)
[2016-11-27] MEDS: HYDROmorphone 1 MG/ML Syringe IVPUSH PRN ×2 (15:54→20:41)
[2016-11-27] MEDS ORDERED: Enoxaparin 40 MG/0.4 ML Syringe SUBCUT ONE (16:01)
[2016-11-27] MEDS: Nicotine Polacrilex 2 MG Gum CHEW PRN (19:47)
[2016-11-27] MEDS: Zolpidem 5 MG Tab PO SCH (20:42)
[2016-11-27] MEDS: Divalproex Sodium Delayed-Release 250 MG Tab.CR PO SCH (20:43)
[2016-11-27] MEDS: ALPRAZolam 0.5 MG Tab PO SCH (21:40)
--- NOTE | 2016-11-27 22:34 | ANES ---
DATE OF SERVICE: 11/27/2016 TIME: 1440 hours. I was called to the ICU to evaluate him for an arterial line. I discussed with the patient, the risks and benefits were explained, he wished to proceed with an arterial line. I prepped his right radial artery with a chlorhexidine solution. I did localize with 1% lidocaine. I put a 20-gauge Arrow arterial line catheter into the right radial artery. Good waveform and good return, therefore was sutured with 2-0 Prolene. Tegaderm and tape were placed and it had a good waveform. Kian Carrillo CRNA /[id number]
[2016-11-28] MEDS: Nicotine Polacrilex 2 MG Gum CHEW PRN ×2 (00:06→19:44)
[2016-11-28] MEDS: HYDROmorphone 1 MG/ML Syringe IVPUSH PRN ×3 (00:48→23:46)
[2016-11-28] MEDS: Furosemide 20 MG/2 ML VIAL IVPUSH SCH ×3 (04:47→21:14)
[2016-11-28] MEDS: Diltiazem 100 MG in Sodium Chloride 0.9% 100 ML IV SCH ×3 (06:14→23:44)
[2016-11-28] MEDS: Albuterol 0.083% 2.5 MG/3 ML Neb Soln NEB SCH ×4 (07:19→21:14)
[2016-11-28] MEDS: Pantoprazole 40 MG Tab.CR PO SCH (07:29)
[2016-11-28] MEDS: Enoxaparin 40 MG/0.4 ML Syringe SUBCUT SCH (08:23)
[2016-11-28] MEDS: Sertraline 50 MG Tab PO SCH (08:24)
[2016-11-28] MEDS: Nystatin Topical Powder 15 GM Bottle TOP SCH ×2 (08:24→21:15)
[2016-11-28] MEDS ORDERED: Nystatin Topical Powder 15 GM Bottle TOP SCH (09:00)
--- NOTE | 2016-11-28 09:41 | PCM.PN ---
- General Info Date of Service: 11/28/16 Functional Status: Reports: Pain Controlled, Tolerating Diet. Denies: Ambulating - Review of Systems General: Reports: Weakness Cardiovascular: Reports: Edema Musculoskeletal: Reports: Back Pain, Leg Pain Systems Review Comment:: No acute events overnight. Was more alert last night and is still interactive this morning. PCO2 has risen this morning compared to yesterday evening. He was on the noninvasive ventilation overnight. He continues to have a good diuresis with every 8 hours furosemide injections. Continues to have pain in his left lower back that radiates to the left thigh consistent with chronic sciatica. He continues to require supplemental oxygen when he is off of his noninvasive ventilation. He has been eating well. Very weak and unable to get out of bed. - Patient Data Vitals - Most Recent: Last Vital Signs Temp 36.3 C 11/28/16 08:00 Pulse 111 H 11/28/16 08:00 Resp 21 H 11/28/16 08:00 BP 135/58 L 11/28/16 08:00 Pulse Ox 91 L 11/28/16 08:00 Weight - Most Recent: 232.421 kg I&O - Last 24 Hours: Intake & Output 11/27/16 11/28/16 11/28/16 22:59 06:59 14:59 Intake Total 3255 380 1040 Output Total 2700 1575 Balance 555 -1195 1040 Lab Results Last 24 Hours: Laboratory Results - last 24 hr 11/27/16 11/27/16 11/27/16 Range/Units 06:05 11:57 17:00 WBC (4.5-11.0) K/uL RBC (4.30-5.90) M/uL Hgb (12.0-15.0) g/dL Hct (40.0-54.0) % MCV (80-98) fL MCH (27-31) pg MCHC (32-36) % Plt Count (150-400) K/uL Puncture Site Lt radial Rt radial ABG pH 7.319 L 7.422 (7.350-7.450) ABG pCO2 74.6 H* 55.5 H (35.0-42.0) mmHg ABG pO2 60.4 L 97.0 (75.0-100.0) mmHg ABG HCO3 37.3 H 35.5 H (22.0-26.0) mmol/L ABG Total CO2 34.4 H 32.3 H (23.0-27.0) mmol/L ABG O2 Saturation 89.0 L 98.4 H (95.0-98.0) % ABG O2 Content 14.1 L 14.9 L (15.0-23.0) %vol ABG Base Excess 9.0 9.7 mm/L ABG Hemoglobin 11.9 L 11.4 L (13.5-18.0) g/dL ABG Oxyhemoglobin 83.9 92.2 % ABG Carboxyhemoglobin 5.2 H 5.8 H (0.0-1.6) % ABG Methemoglobin 0.5 0.5 % Ivan Test Pass Passed O2 Delivery Device Bipap Bipap Oxygen Flow Rate L Sodium (140-148) mmol/L Potassium (3.6-5.2) mmol/L Chloride (100-108) mmol/L Carbon Dioxide (21-32) mmol/L Anion Gap (5.0-14.0) mmol/L BUN (7-18) mg/dL Creatinine (0.8-1.3) mg/dL Est Cr Clr Drug Dosing mL/min Estimated GFR (MDRD) (>60) Glucose (74-106) mg/dL Calcium (8.5-10.1) mg/dL Magnesium 2.1 (1.8-2.4) mg/dL Troponin I 0.026 (0.000-0.056) ng/mL TSH, Ultra Sensitive (0.358-3.740) uIU/mL 11/28/16 11/28/16 11/28/16 Range/Units 04:40 04:40 06:30 WBC 9.5 (4.5-11.0) K/uL RBC 4.49 (4.30-5.90) M/uL Hgb 11.5 L (12.0-15.0) g/dL Hct 40.2 (40.0-54.0) % MCV 90 (80-98) fL MCH 26 L (27-31) pg MCHC 29 L (32-36) % Plt Count 234 (150-400) K/uL Puncture Site Line ABG pH 7.326 L (7.350-7.450) ABG pCO2 77.2 H* (35.0-42.0) mmHg ABG pO2 69.1 L (75.0-100.0) mmHg ABG HCO3 39.2 H (22.0-26.0) mmol/L ABG Total CO2 36.5 H (23.0-27.0) mmol/L ABG O2 Saturation 92.2 L (95.0-98.0) % ABG O2 Content 14.0 L (15.0-23.0) %vol ABG Base Excess 11.0 mm/L ABG Hemoglobin 11.2 L (13.5-18.0) g/dL ABG Oxyhemoglobin 88.5 % ABG Carboxyhemoglobin 3.4 H (0.0-1.6) % ABG Methemoglobin 0.6 % Ivan Test O2 Delivery Device Bipap Oxygen Flow Rate L Sodium 142 (140-148) mmol/L Potassium 4.2 (3.6-5.2) mmol/L Chloride 100 (100-108) mmol/L Carbon Dioxide 41 H (21-32) mmol/L Anion Gap 5.2 (5.0-14.0) mmol/L BUN 11 (7-18) mg/dL Creatinine 0.7 L (0.8-1.3) mg/dL Est Cr Clr Drug Dosing 159.38 mL/min Estimated GFR (MDRD) > 60 (>60) Glucose 88 (74-106) mg/dL Calcium 8.3 L (8.5-10.1) mg/dL Magnesium (1.8-2.4) mg/dL Troponin I (0.000-0.056) ng/mL TSH, Ultra Sensitive 1.133 (0.358-3.740) uIU/mL Med Orders - Current: Current Medications Acetaminophen (Tylenol) 650 mg PO Q4H PRN PRN Reason: Pain Albuterol (Proventil Neb Soln) 2.5 mg NEB QIDRT [facility] Last Admin: 11/28/16 07:19 Dose: 2.5 mg Albuterol (Proventil Neb Soln) 2.5 mg NEB Q2H PRN PRN Reason: Shortness of Breath Alprazolam (Xanax) 1 mg PO BID [facility] Last Admin: 11/27/16 21:40 Dose: 1 mg Divalproex Sodium (Divalproex Sodium) 1,500 mg PO BEDTIME [facility] Last Admin: 11/27/16 20:43 Dose: 1,500 mg Enoxaparin Sodium (Lovenox) 40 mg SUBCUT DAILY [facility] Last Admin: 11/28/16 08:23 Dose: 40 mg Furosemide (Lasix) 20 mg IVPUSH Q8H [facility] Last Admin: 11/28/16 04:47 Dose: 20 mg Hydromorphone HCl (Dilaudid) 0.5 - 1 mg IVPUSH Q2H PRN PRN Reason: Pain (severe 7-10) Last Admin: 11/28/16 07:34 Dose: 1 mg Sodium Chloride (Normal Saline) 100 mls @ 4 mls/sec IV ASDIRECTED [facility] Last Admin: 11/27/16 09:09 Dose: 4 mls/sec Diltiazem HCl 100 mg/ Sodium (Chloride) 100 mls @ 5 mls/hr IV TITRATE MIKE; 5 MG /HR PRN Reason: Protocol Last Admin: 11/28/16 06:14 Dose: 12.5 mg/hr, 12.5 mls/hr Heparin Sodium (Porcine) 5,000 (units/ Sodium Chloride) 501 mls @ 5 mls/hr IV ASDIRECTED [facility] Last Admin: 11/27/16 15:30 Dose: 5 mls/hr Nicotine Polacrilex (Nicorelief) 2 mg CHEW Q2H PRN PRN Reason: Other Last Admin: 11/28/16 00:06 Dose: 2 mg Non-Formulary Medication (Paliperidone Palmitate [Invega Sustenna]) 234 mg IM Q30D [facility] Nystatin (Nystop) 0 gm TOP BID [facility] Last Admin: 11/28/16 08:24 Dose: 1 applic Pantoprazole Sodium (Protonix) 40 mg PO ACBREAKFAST [facility] Last Admin: 11/28/16 07:29 Dose: 40 mg Sertraline HCl (Zoloft) 100 mg PO DAILY [facility] Last Admin: 11/28/16 08:24 Dose: 100 mg Sodium Chloride (Saline Flush) 10 ml FLUSH ONETIME PRN PRN Reason: per radiology protocol Last Admin: 11/27/16 09:08 Dose: 10 ml Zolpidem Tartrate (Ambien) 10 mg PO BEDTIME [facility] Last Admin: 11/27/16 20:42 Dose: 10 mg Discontinued Medications Alprazolam (Xanax) 1 mg PO BID [facility] Last Admin: 11/26/16 22:28 Dose: 1 mg Atenolol (Tenormin) 100 mg PO DAILY [facility] Cholecalciferol (Vitamin D3) 2,000 units PO DAILY [facility] Enoxaparin Sodium (Lovenox) 40 mg SUBCUT ONETIME ONE Stop: 11/27/16 16:02 Last Admin: 11/27/16 18:01 Dose: 40 mg Fish Oil (Fish Oil) 1 gm PO DAILY [facility] Furosemide (Lasix) 20 mg IVPUSH Q2H [facility] Last Admin: 11/27/16 04:21 Dose: 20 mg Furosemide (Lasix) 20 mg IVPUSH Q2H [facility] Sodium Chloride (Normal Saline) 1,000 mls @ 75 mls/hr IV ASDIRECTED [facility] Furosemide 100 mg/ Sodium (Chloride) 100 mls @ 13.9 mls/hr IV TITRATE MIKE PRN Reason: Protocol Last Admin: 11/26/16 16:25 Dose: 13.9 ml/hr, 13.9 mls/hr Iopamidol (Isovue-370 (76%)) 100 ml IV . DIRECTED [facility] Last Admin: 11/27/16 09:08 Dose: 100 ml Ketorolac Tromethamine (Toradol) 60 mg IM Q6H PRN PRN Reason: Pain Stop: 12/01/16 14:32 Last Admin: 11/26/16 18:50 Dose: 60 mg Lisinopril (Prinivil) 30 mg PO DAILY [facility] Multivitamins/Minerals (Thera M Plus) 1 tab PO DAILY [facility] Glucosam/Chondroit/C (/Manganese (Ptom)) 1 each PO DAILY [facility] Invega Sustenna 156 (Mg) 156 mg IM Q30D [facility] Rivaroxaban (Xarelto) 15 mg PO Q12H [facility] - Exam Quality Assessment: Supplemental Oxygen General: Alert, Oriented, Cooperative, No Acute Distress HEENT: Pupils Equal Neck: Supple Lungs: Normal Respiratory Effort, Wheezing (mild left side of chest). No: Rales Cardiovascular: No Murmurs, Irregular Rhythm, Tachycardia GI/Abdominal Exam: Soft, No Distention, Other (obese) Extremities: Other (massive pitting edema of both legs). No: Increased Warmth Skin: Warm, Dry, Rash (erythema both axilla areas, betweens folds of skin) Psy/Mental Status: Alert, Normal Affect - Problem List & Annotations (1) Acute respiratory failure with hypoxia and hypercapnia SNOMED Code(s): 75495966, 849201788 Code(s): J96.01 - ACUTE RESPIRATORY FAILURE WITH HYPOXIA; J96.02 - ACUTE RESPIRATORY FAILURE WITH HYPERCAPNIA Status: Acute Current Visit: Yes (2) Anasarca SNOMED Code(s): 098697426, 896939934 Code(s): R60.1 - GENERALIZED EDEMA Status: Acute Current Visit: Yes (3) Morbid obesity with BMI of 70 and over, adult SNOMED Code(s): 130981545 Code(s): E66.01 - MORBID (SEVERE) OBESITY DUE TO EXCESS CALORIES; Z68.45 - BODY MASS INDEX (BMI) 70 OR GREATER, ADULT Status: Chronic Current Visit: No - Problem List Review Problem List Initiated/Reviewed/Updated: Yes - My Orders Last 24 Hours: My Active Orders 11/27/16 10:17 Cardiac Monitoring [RC] Q6H Overnight Pulse Oximetry [RC] Click to Edit Pulse Oximetry Continuous Monitoring [OM.PC] Routine 11/27/16 10:30 Diltiazem [Cardizem] 100 mg Sodium Chloride 0.9% [Normal Saline] 100 ml IV TITRATE 11/27/16 12:30 Furosemide [Lasix] 20 mg IVPUSH Q8H 11/27/16 12:40 Albuterol [Proventil Neb Soln] 2.5 mg NEB Q2H PRN 11/27/16 12:41 RT Aerosol Therapy [RC] ASDIRECTED 11/27/16 14:45 Heparin Sodium 5,000 units Sodium Chloride 0.9% [Normal Saline] 500 ml IV ASDIRECTED 11/27/16 15:00 Albuterol [Proventil Neb Soln] 2.5 mg NEB QIDRT 11/27/16 15:46 HYDROmorphone [Dilaudid] 0.5 - 1 mg IVPUSH Q2H PRN 11/27/16 17:23 Arterial Line Insertion [OM.PC] Routine 11/27/16 21:15 ALPRAZolam [Xanax] 1 mg PO BID 11/28/16 07:00 Echo Comp wo Cont [US] Routine 11/28/16 09:00 Enoxaparin [Lovenox] 40 mg SUBCUT DAILY Nystatin [Nystop] 0 gm TOP BID 11/28/16 09:34 HYDROmorphone [Dilaudid] 2 mg PO Q4H PRN 11/28/16 09:35 Ibuprofen [Motrin] 600 mg PO Q6H PRN 11/28/16 09:37 methylPREDNISolone Sod Succ [Solu-MEDROL] 125 mg IVPUSH ONETIME ONE 11/28/16 12:00 BLOOD GAS ARTERIAL [BG] Timed 11/28/16 16:00 methylPREDNISolone Sod Succ [Solu-MEDROL] 62.5 mg IVPUSH Q8H 11/29/16 05:00 BASIC METABOLIC PANEL,BMP [CHEM] Timed BLOOD GAS ARTERIAL [BG] Timed CBC W/O DIFF,HEMOGRAM [HEME] Timed (1) MAGNESIUM [CHEM] Timed - Plan Plan:: Assessment and plan - Acute respiratory failure with hypoxia and hypercapnia - probably related to noncompliance with home C Pap therapy. Echocardiogram completed this morning and evaluation is pending. Clinically he seems to be getting better though PCO2 levels seem to rise and fall. He has been more alert and interactive. Oxygenation better with noninvasive ventilation. No evidence for infection. Mild wheezing on the left side today. -Continue noninvasive ventilation -Scheduled and as needed nebulizers -Trial of steroids -Repeat blood gases this afternoon and in the morning -Continue aggressive diuresis Anasarca - Kidney function is normal. I suspect this is related to his sleep apnea and lack of compliance with C Pap therapy. -Continue diuresis -Follow-up echo -Strict monitoring of intake and output -Continue Solis catheter Atrial fibrillation with rapid ventricular response - rate control has not improved much with diltiazem infusion though it is a little better. I suspect we will have difficulty until his hypoxia has corrected. -Continue diltiazem infusion -Cardiac monitoring -Optimize volume status Morbid obesity with BMI greater than 70 - patient does not seem to have a strong interest in changing dietary habits at this time. He is currently obtunded and I'm unable to discuss this with him. We will need to have some serious discussions once respiratory status improves. Essential hypertension - usual home medications will be on hold, blood pressures have been stable. Maintenance issues - - DVT prophylaxis - enoxaparin - GI prophylaxis - PPI - Nutrition - diet as tolerated - Solis catheter - placed at the time of admission for intake and output monitoring. This needs to be left in place with obtundation and need for strict intake and output monitoring. Disposition - pending at this time Frantz Kaur M.D.
[2016-11-28] MEDS ORDERED: methylPREDNISolone Sodium Succinate 125 MG/2 ML SDV IVPUSH ONE (10:00)
[2016-11-28] MEDS: ALPRAZolam 0.5 MG Tab PO SCH ×2 (10:24→21:14)
[2016-11-28] MEDS: HYDROmorphone 2 MG Tab PO PRN ×3 (10:34→19:24)
[2016-11-28] MEDS: methylPREDNISolone Sodium Succinate 125 MG/2 ML SDV IVPUSH SCH ×2 (16:57→23:50)
[2016-11-28] MEDS: Divalproex Sodium Delayed-Release 250 MG Tab.CR PO SCH (21:15)
[2016-11-28] MEDS: Zolpidem 5 MG Tab PO SCH (23:51)
[2016-11-29] MEDS: Furosemide 20 MG/2 ML VIAL IVPUSH SCH (04:55)
[2016-11-29] MEDS: HYDROmorphone 2 MG Tab PO PRN (06:50)
[2016-11-29] MEDS: Albuterol 0.083% 2.5 MG/3 ML Neb Soln NEB SCH ×4 (07:07→21:00)
[2016-11-29] MEDS: Pantoprazole 40 MG Tab.CR PO SCH (08:11)
[2016-11-29] MEDS: methylPREDNISolone Sodium Succinate 125 MG/2 ML SDV IVPUSH SCH ×2 (08:12→15:42)
[2016-11-29] MEDS: Enoxaparin 40 MG/0.4 ML Syringe SUBCUT SCH (08:13)
[2016-11-29] MEDS: Sertraline 50 MG Tab PO SCH (08:14)
[2016-11-29] MEDS: ALPRAZolam 0.5 MG Tab PO SCH ×2 (08:16→21:00)
[2016-11-29] MEDS: Nicotine Polacrilex 2 MG Gum CHEW PRN ×3 (08:46→20:03)
[2016-11-29] MEDS: Diltiazem 100 MG in Sodium Chloride 0.9% 100 ML IV SCH ×2 (08:58→21:01)
[2016-11-29] MEDS: Nystatin Topical Powder 15 GM Bottle TOP SCH ×2 (11:07→21:00)
[2016-11-29] MEDS: HYDROmorphone 1 MG/ML Syringe IVPUSH PRN ×3 (11:07→20:03)
--- NOTE | 2016-11-29 11:18 | PCM.PN ---
- General Info Date of Service: 11/29/16 Functional Status: Reports: Pain Controlled, Tolerating Diet - Review of Systems General: Reports: Weakness Pulmonary: Reports: Shortness of Breath Neurological: Reports: Confusion Systems Review Comment:: No acute events overnight. Still has CO2 retention and mild acidosis on ABG's. no significant change in his sciatic pain. He reports that he feels better today and is more alert and interactive. He has continued to have good diuresis though not as good as the 2 previous days. Edema continues to improve. Kidney function has remained stable. Heart rate is now trending down to the normal range. No complaints of chest pain or abdominal pain. - Patient Data Vitals - Most Recent: Last Vital Signs Temp 36.4 C 11/29/16 07:00 Pulse 106 H 11/29/16 10:51 Resp 18 11/29/16 10:00 BP 130/71 11/29/16 10:00 Pulse Ox 92 L 11/29/16 10:51 Weight - Most Recent: 234.779 kg I&O - Last 24 Hours: Intake & Output 11/28/16 11/29/16 11/29/16 22:59 06:59 14:59 Intake Total 1945 271 480 Output Total 1300 1300 Balance 645 -1029 480 Lab Results Last 24 Hours: Laboratory Results - last 24 hr 11/28/16 11/29/16 11/29/16 Range/Units 11:50 05:50 05:50 WBC 7.4 (4.5-11.0) K/uL RBC 4.83 (4.30-5.90) M/uL Hgb 12.4 (12.0-15.0) g/dL Hct 43.5 (40.0-54.0) % MCV 90 (80-98) fL MCH 26 L (27-31) pg MCHC 29 L (32-36) % Plt Count 214 (150-400) K/uL Puncture Site A-line Line ABG pH 7.248 L 7.332 L (7.350-7.450) ABG pCO2 99.0 H* 81.9 H* (35.0-42.0) mmHg ABG pO2 61.0 L 79.1 (75.0-100.0) mmHg ABG HCO3 41.7 H 42.1 H (22.0-26.0) mmol/L ABG Total CO2 39.4 H 38.5 H (23.0-27.0) mmol/L ABG O2 Saturation 85.8 L 95.2 (95.0-98.0) % ABG O2 Content 13.7 L 16.0 (15.0-23.0) %vol ABG Base Excess 11.2 13.1 mm/L ABG Hemoglobin 11.7 L 12.4 L (13.5-18.0) g/dL ABG Oxyhemoglobin 82.8 91.7 % ABG Carboxyhemoglobin 3.0 H 3.2 H (0.0-1.6) % ABG Methemoglobin 0.5 0.5 % Ivan Test Not performed O2 Delivery Device Bipap Oxygen Flow Rate L Sodium (140-148) mmol/L Potassium (3.6-5.2) mmol/L Chloride (100-108) mmol/L Carbon Dioxide (21-32) mmol/L Anion Gap (5.0-14.0) mmol/L BUN (7-18) mg/dL Creatinine (0.8-1.3) mg/dL Est Cr Clr Drug Dosing mL/min Estimated GFR (MDRD) (>60) Glucose (74-106) mg/dL Calcium (8.5-10.1) mg/dL Magnesium (1.8-2.4) mg/dL 11/29/16 Range/Units 05:50 WBC (4.5-11.0) K/uL RBC (4.30-5.90) M/uL Hgb (12.0-15.0) g/dL Hct (40.0-54.0) % MCV (80-98) fL MCH (27-31) pg MCHC (32-36) % Plt Count (150-400) K/uL Puncture Site ABG pH (7.350-7.450) ABG pCO2 (35.0-42.0) mmHg ABG pO2 (75.0-100.0) mmHg ABG HCO3 (22.0-26.0) mmol/L ABG Total CO2 (23.0-27.0) mmol/L ABG O2 Saturation (95.0-98.0) % ABG O2 Content (15.0-23.0) %vol ABG Base Excess mm/L ABG Hemoglobin (13.5-18.0) g/dL ABG Oxyhemoglobin % ABG Carboxyhemoglobin (0.0-1.6) % ABG Methemoglobin % Ivan Test O2 Delivery Device Oxygen Flow Rate L Sodium 139 L (140-148) mmol/L Potassium 4.8 (3.6-5.2) mmol/L Chloride 97 L (100-108) mmol/L Carbon Dioxide 41 H (21-32) mmol/L Anion Gap 5.8 (5.0-14.0) mmol/L BUN 9 (7-18) mg/dL Creatinine 0.6 L (0.8-1.3) mg/dL Est Cr Clr Drug Dosing 185.94 mL/min Estimated GFR (MDRD) > 60 (>60) Glucose 156 H (74-106) mg/dL Calcium 8.6 (8.5-10.1) mg/dL Magnesium 1.9 (1.8-2.4) mg/dL Med Orders - Current: Current Medications Acetaminophen (Tylenol) 650 mg PO Q4H PRN PRN Reason: Pain Albuterol (Proventil Neb Soln) 2.5 mg NEB QIDRT [facility] Last Admin: 11/29/16 10:48 Dose: 2.5 mg Albuterol (Proventil Neb Soln) 2.5 mg NEB Q2H PRN PRN Reason: Shortness of Breath Alprazolam (Xanax) 1 mg PO BID [facility] Last Admin: 11/29/16 08:16 Dose: 1 mg Divalproex Sodium (Divalproex Sodium) 1,500 mg PO BEDTIME [facility] Last Admin: 11/28/16 21:15 Dose: 1,500 mg Enoxaparin Sodium (Lovenox) 40 mg SUBCUT DAILY [facility] Last Admin: 11/29/16 08:13 Dose: 40 mg Furosemide (Lasix) 40 mg IV Q8H [facility] Hydromorphone HCl (Dilaudid) 0.5 - 1 mg IVPUSH Q2H PRN PRN Reason: Pain (severe 7-10) Last Admin: 11/29/16 11:07 Dose: 1 mg Hydromorphone HCl (Dilaudid) 2 mg PO Q4H PRN PRN Reason: Pain Last Admin: 11/29/16 06:50 Dose: 2 mg Diltiazem HCl 100 mg/ Sodium (Chloride) 100 mls @ 5 mls/hr IV TITRATE MIKE; 5 MG /HR PRN Reason: Protocol Last Admin: 11/29/16 08:58 Dose: 7.5 mg/hr, 7.5 mls/hr Heparin Sodium (Porcine) 5,000 (units/ Sodium Chloride) 501 mls @ 5 mls/hr IV ASDIRECTED [facility] Last Admin: 11/27/16 15:30 Dose: 5 mls/hr Ibuprofen (Motrin) 600 mg PO Q6H PRN PRN Reason: Pain Methylprednisolone Sodium Succinate (Solu-Medrol) 62.5 mg IVPUSH Q8H [facility] Last Admin: 11/29/16 08:12 Dose: 62.5 mg Nicotine Polacrilex (Nicorelief) 2 mg CHEW Q2H PRN PRN Reason: Other Last Admin: 11/29/16 08:46 Dose: 2 mg Non-Formulary Medication (Paliperidone Palmitate [Invega Sustenna]) 234 mg IM Q30D [facility] Nystatin (Nystop) 0 gm TOP BID [facility] Last Admin: 11/29/16 11:07 Dose: 1 applic Pantoprazole Sodium (Protonix) 40 mg PO ACBREAKFAST [facility] Last Admin: 11/29/16 08:11 Dose: 40 mg Sertraline HCl (Zoloft) 100 mg PO DAILY [facility] Last Admin: 11/29/16 08:14 Dose: 100 mg Sodium Chloride (Saline Flush) 10 ml FLUSH ONETIME PRN PRN Reason: per radiology protocol Last Admin: 11/27/16 09:08 Dose: 10 ml Zolpidem Tartrate (Ambien) 10 mg PO BEDTIME [facility] Last Admin: 11/28/16 23:51 Dose: Not Given Discontinued Medications Alprazolam (Xanax) 1 mg PO BID [facility] Last Admin: 11/26/16 22:28 Dose: 1 mg Atenolol (Tenormin) 100 mg PO DAILY [facility] Cholecalciferol (Vitamin D3) 2,000 units PO DAILY [facility] Enoxaparin Sodium (Lovenox) 40 mg SUBCUT ONETIME ONE Stop: 11/27/16 16:02 Last Admin: 11/27/16 18:01 Dose: 40 mg Fish Oil (Fish Oil) 1 gm PO DAILY [facility] Furosemide (Lasix) 20 mg IVPUSH Q2H [facility] Last Admin: 11/27/16 04:21 Dose: 20 mg Furosemide (Lasix) 20 mg IVPUSH Q2H [facility] Furosemide (Lasix) 20 mg IVPUSH Q8H [facility] Last Admin: 11/29/16 04:55 Dose: 20 mg Sodium Chloride (Normal Saline) 1,000 mls @ 75 mls/hr IV ASDIRECTED [facility] Furosemide 100 mg/ Sodium (Chloride) 100 mls @ 13.9 mls/hr IV TITRATE MIKE PRN Reason: Protocol Last Admin: 11/26/16 16:25 Dose: 13.9 ml/hr, 13.9 mls/hr Sodium Chloride (Normal Saline) 100 mls @ 4 mls/sec IV ASDIRECTED [facility] Last Admin: 11/27/16 09:09 Dose: 4 mls/sec Iopamidol (Isovue-370 (76%)) 100 ml IV . DIRECTED [facility] Last Admin: 11/27/16 09:08 Dose: 100 ml Ketorolac Tromethamine (Toradol) 60 mg IM Q6H PRN PRN Reason: Pain Stop: 12/01/16 14:32 Last Admin: 11/26/16 18:50 Dose: 60 mg Lisinopril (Prinivil) 30 mg PO DAILY [facility] Methylprednisolone Sodium Succinate (Solu-Medrol) 125 mg IVPUSH ONETIME ONE Stop: 11/28/16 10:01 Last Admin: 11/28/16 10:24 Dose: 125 mg Multivitamins/Minerals (Thera M Plus) 1 tab PO DAILY [facility] Glucosam/Chondroit/C (/Manganese (Ptom)) 1 each PO DAILY [facility] Invega Sustenna 156 (Mg) 156 mg IM Q30D [facility] Rivaroxaban (Xarelto) 15 mg PO Q12H [facility] - Exam Quality Assessment: Supplemental Oxygen General: Alert, Oriented, Cooperative, No Acute Distress HEENT: Pupils Equal Neck: Supple Lungs: Clear to Auscultation, Normal Respiratory Effort. No: Wheezing Cardiovascular: Regular Rate, Regular Rhythm, No Murmurs GI/Abdominal Exam: Normal Bowel Sounds, Soft, No Distention, Other (obese) Extremities: Pedal Edema (massive pitting edema both legs nicolasa dependent areas). No: Increased Warmth Skin: Warm, Dry, Other (anasarca ) Psy/Mental Status: Alert, Normal Affect - Problem List & Annotations (1) Acute respiratory failure with hypoxia and hypercapnia SNOMED Code(s): 15579234, 163485175 Code(s): J96.01 - ACUTE RESPIRATORY FAILURE WITH HYPOXIA; J96.02 - ACUTE RESPIRATORY FAILURE WITH HYPERCAPNIA Status: Acute Current Visit: Yes (2) Anasarca SNOMED Code(s): 100152152, 512136400 Code(s): R60.1 - GENERALIZED EDEMA Status: Acute Current Visit: Yes (3) Morbid obesity with BMI of 70 and over, adult SNOMED Code(s): 231183750 Code(s): E66.01 - MORBID (SEVERE) OBESITY DUE TO EXCESS CALORIES; Z68.45 - BODY MASS INDEX (BMI) 70 OR GREATER, ADULT Status: Chronic Current Visit: No - Problem List Review Problem List Initiated/Reviewed/Updated: Yes - My Orders Last 24 Hours: My Active Orders 11/28/16 16:00 methylPREDNISolone Sod Succ [Solu-MEDROL] 62.5 mg IVPUSH Q8H 11/29/16 11:15 Atenolol [Tenormin] 100 mg PO DAILY 11/29/16 13:00 Furosemide [Lasix] 40 mg IV Q8H 11/29/16 16:00 BLOOD GAS VENOUS [BG] Timed 11/29/16 21:00 Gabapentin [Neurontin] 300 mg PO BEDTIME 11/30/16 05:00 BASIC METABOLIC PANEL,BMP [CHEM] Timed BLOOD GAS VENOUS [BG] Timed CBC W/O DIFF,HEMOGRAM [HEME] Timed (1) - Plan Plan:: Assessment and plan - Acute respiratory failure with hypoxia and hypercapnia - probably related to noncompliance with home C Pap therapy. slowly improving with diuresis and noninvasive ventilation but still struggling with CO2 retention though pH is nearly normal at this time. No evidence for infection. Steroids seem to be helping. -Continue noninvasive ventilation -Scheduled and as needed nebulizers -Trial of steroids -Repeat blood gases this afternoon and in the morning -Continue aggressive diuresis Anasarca - Kidney function is normal. I suspect this is related to his sleep apnea and lack of compliance with C Pap therapy. slowly improving with diuresis. -Continue diuresis -Follow-up echo -Strict monitoring of intake and output -Continue Solis catheter Atrial fibrillation with rapid ventricular response - rate control has has finally improved. -start atenolol -Continue diltiazem infusion, try to wean as able throughout the day -Cardiac monitoring -Optimize volume status Morbid obesity with BMI greater than 70 - patient does not seem to have a strong interest in changing dietary habits at this time. Essential hypertension - blood pressures stable. Planning to try to restart home medications. Maintenance issues - - DVT prophylaxis - enoxaparin - GI prophylaxis - PPI - Nutrition - diet as tolerated - Solis catheter - placed at the time of admission for intake and output monitoring. This needs to be left in place for strict intake and output monitoring. Disposition - pending at this time Frantz Kaur M.D.
[2016-11-29] MEDS: Atenolol 50 MG Tab PO SCH (12:56)
[2016-11-29] MEDS: Furosemide 40 MG/4 ML VIAL IV SCH ×2 (12:57→21:01)
[2016-11-29] MEDS ORDERED: Furosemide 20 MG/2 ML VIAL IVPUSH SCH (13:00)
[2016-11-29] MEDS: Zolpidem 5 MG Tab PO SCH (20:59)
[2016-11-29] MEDS: Divalproex Sodium Delayed-Release 250 MG Tab.CR PO SCH (21:00)
[2016-11-29] MEDS: Gabapentin 300 MG Cap PO SCH (21:00)
[2016-11-30] MEDS: methylPREDNISolone Sodium Succinate 125 MG/2 ML SDV IVPUSH SCH ×3 (00:33→20:16)
[2016-11-30] MEDS: HYDROmorphone 1 MG/ML Syringe IVPUSH PRN ×5 (00:39→23:50)
[2016-11-30] MEDS: Furosemide 40 MG/4 ML VIAL IV SCH ×2 (04:46→20:11)
[2016-11-30] MEDS: Albuterol 0.083% 2.5 MG/3 ML Neb Soln NEB SCH ×4 (07:24→21:24)
[2016-11-30] MEDS: Dimethicone 20%/Zinc Oxide 25% 56 GM Spray Bottle TOP PRN ×2 (07:50→21:41)
[2016-11-30] MEDS: Pantoprazole 40 MG Tab.CR PO SCH (07:51)
[2016-11-30] MEDS: Enoxaparin 40 MG/0.4 ML Syringe SUBCUT SCH (08:00)
[2016-11-30] MEDS: Sertraline 50 MG Tab PO SCH (08:00)
[2016-11-30] MEDS: ALPRAZolam 0.5 MG Tab PO SCH ×2 (08:00→21:24)
[2016-11-30] MEDS: Atenolol 50 MG Tab PO SCH (08:00)
[2016-11-30] MEDS: Nystatin Topical Powder 15 GM Bottle TOP SCH ×2 (09:40→21:25)
[2016-11-30] MEDS ORDERED: PALIPERIDONE PALMITATE 234 MG IM SCH (10:00)
--- NOTE | 2016-11-30 10:14 | PCM.PN ---
- General Info Date of Service: 11/30/16 Functional Status: Reports: Pain Controlled, Tolerating Diet. Denies: Ambulating - Review of Systems General: Reports: Weakness Pulmonary: Reports: Shortness of Breath Musculoskeletal: Reports: Back Pain Systems Review Comment:: No acute events overnight. Patient was awake much of the night and did not use the noninvasive ventilation much and therefore his PCO2 is elevated this morning. He has not had any fevers. Continues to have good urine output with diuresis but his BUN level has risen compared to yesterday. Edema has been slowly improving though there still is massive edema. Appetite has been good. He has not been out of bed and does not show any interest in getting out of bed. - Patient Data Vitals - Most Recent: Last Vital Signs Temp 37.1 C 11/30/16 09:00 Pulse 77 11/30/16 10:00 Resp 14 11/30/16 10:00 BP 144/84 H 11/30/16 10:00 Pulse Ox 94 L 11/30/16 10:00 Weight - Most Recent: 230.879 kg I&O - Last 24 Hours: Intake & Output 11/29/16 11/30/16 11/30/16 22:59 06:59 14:59 Intake Total 1092 1332 Output Total 1500 1550 300 Balance -408 -218 -300 Lab Results Last 24 Hours: Laboratory Results - last 24 hr 11/29/16 11/30/16 11/30/16 Range/Units 15:58 05:00 05:00 WBC 12.0 H (4.5-11.0) K/uL RBC 4.92 (4.30-5.90) M/uL Hgb 12.6 (12.0-15.0) g/dL Hct 44.3 (40.0-54.0) % MCV 90 (80-98) fL MCH 26 L (27-31) pg MCHC 28 L (32-36) % Plt Count 217 (150-400) K/uL Puncture Site Line ABG pH 7.351 (7.350-7.450) ABG pCO2 77.6 H* (35.0-42.0) mmHg ABG pO2 73.0 L (75.0-100.0) mmHg ABG HCO3 41.8 H (22.0-26.0) mmol/L ABG Total CO2 38.2 H (23.0-27.0) mmol/L ABG O2 Saturation 94.2 L (95.0-98.0) % ABG O2 Content 15.5 (15.0-23.0) %vol ABG Base Excess 13.3 mm/L ABG Hemoglobin 12.1 L (13.5-18.0) g/dL ABG Oxyhemoglobin 90.8 % ABG Carboxyhemoglobin 3.1 H (0.0-1.6) % ABG Methemoglobin 0.5 % Ivan Test Line VBG pH Cancelled VBG pCO2 Cancelled VBG pO2 Cancelled VBG HCO3 Cancelled VBG Total CO2 Cancelled VBG O2 Saturation Cancelled VBG O2 Content Cancelled VBG Base Excess Cancelled O2 Delivery Device Bipap Oxygen Flow Rate L Sodium 139 L (140-148) mmol/L Potassium 4.6 (3.6-5.2) mmol/L Chloride 97 L (100-108) mmol/L Carbon Dioxide 45 H (21-32) mmol/L Anion Gap 1.6 L (5.0-14.0) mmol/L BUN 19 H D (7-18) mg/dL Creatinine 0.7 L (0.8-1.3) mg/dL Est Cr Clr Drug Dosing 159.38 mL/min Estimated GFR (MDRD) > 60 (>60) Glucose 146 H (74-106) mg/dL Calcium 8.8 (8.5-10.1) mg/dL 11/30/16 Range/Units 05:00 WBC (4.5-11.0) K/uL RBC (4.30-5.90) M/uL Hgb (12.0-15.0) g/dL Hct (40.0-54.0) % MCV (80-98) fL MCH (27-31) pg MCHC (32-36) % Plt Count (150-400) K/uL Puncture Site A-line ABG pH 7.320 L (7.350-7.450) ABG pCO2 86.1 H* (35.0-42.0) mmHg ABG pO2 75.4 (75.0-100.0) mmHg ABG HCO3 43.1 H (22.0-26.0) mmol/L ABG Total CO2 39.5 H (23.0-27.0) mmol/L ABG O2 Saturation 93.8 L (95.0-98.0) % ABG O2 Content 15.9 (15.0-23.0) %vol ABG Base Excess 13.6 mm/L ABG Hemoglobin 12.4 L (13.5-18.0) g/dL ABG Oxyhemoglobin 91.3 % ABG Carboxyhemoglobin 2.2 H (0.0-1.6) % ABG Methemoglobin 0.5 % Ivan Test Not performed VBG pH VBG pCO2 VBG pO2 VBG HCO3 VBG Total CO2 VBG O2 Saturation VBG O2 Content VBG Base Excess O2 Delivery Device Bipap Oxygen Flow Rate L Sodium (140-148) mmol/L Potassium (3.6-5.2) mmol/L Chloride (100-108) mmol/L Carbon Dioxide (21-32) mmol/L Anion Gap (5.0-14.0) mmol/L BUN (7-18) mg/dL Creatinine (0.8-1.3) mg/dL Est Cr Clr Drug Dosing mL/min Estimated GFR (MDRD) (>60) Glucose (74-106) mg/dL Calcium (8.5-10.1) mg/dL Med Orders - Current: Current Medications Acetaminophen (Tylenol) 650 mg PO Q4H PRN PRN Reason: Pain Albuterol (Proventil Neb Soln) 2.5 mg NEB QIDRT [facility] Last Admin: 11/30/16 07:24 Dose: 2.5 mg Albuterol (Proventil Neb Soln) 2.5 mg NEB Q2H PRN PRN Reason: Shortness of Breath Alprazolam (Xanax) 1 mg PO BID [facility] Last Admin: 11/30/16 08:00 Dose: 1 mg Atenolol (Tenormin) 100 mg PO DAILY [facility] Last Admin: 11/30/16 08:00 Dose: 100 mg Dimethicone/Zinc Oxide (Rash Relief-Zinc Oxide [place]) 0 gm TOP ASDIRECTED PRN PRN Reason: Rash Last Admin: 11/30/16 07:50 Dose: 1 spray Divalproex Sodium (Divalproex Sodium) 1,500 mg PO BEDTIME [facility] Last Admin: 11/29/16 21:00 Dose: 1,500 mg Enoxaparin Sodium (Lovenox) 40 mg SUBCUT DAILY [facility] Last Admin: 11/30/16 08:00 Dose: 40 mg Gabapentin (Neurontin) 300 mg PO BEDTIME [facility] Last Admin: 11/29/16 21:00 Dose: 300 mg Hydromorphone HCl (Dilaudid) 0.5 - 1 mg IVPUSH Q2H PRN PRN Reason: Pain (severe 7-10) Last Admin: 11/30/16 00:39 Dose: 1 mg Hydromorphone HCl (Dilaudid) 2 mg PO Q4H PRN PRN Reason: Pain Last Admin: 11/29/16 06:50 Dose: 2 mg Heparin Sodium (Porcine) 5,000 (units/ Sodium Chloride) 501 mls @ 5 mls/hr IV ASDIRECTED [facility] Last Admin: 11/27/16 15:30 Dose: 5 mls/hr Ibuprofen (Motrin) 600 mg PO Q6H PRN PRN Reason: Pain Nicotine Polacrilex (Nicorelief) 2 mg CHEW Q2H PRN PRN Reason: Other Last Admin: 11/29/16 20:03 Dose: 2 mg Non-Formulary Medication (Paliperidone Palmitate [Invega Sustenna]) 234 mg IM Q30D [facility] Last Admin: 11/30/16 09:38 Dose: 234 mg Nystatin (Nystop) 0 gm TOP BID [facility] Last Admin: 11/30/16 09:40 Dose: 1 applic Pantoprazole Sodium (Protonix) 40 mg PO ACBREAKFAST [facility] Last Admin: 11/30/16 07:51 Dose: 40 mg Sertraline HCl (Zoloft) 100 mg PO DAILY [facility] Last Admin: 11/30/16 08:00 Dose: 100 mg Sodium Chloride (Saline Flush) 10 ml FLUSH ONETIME PRN PRN Reason: per radiology protocol Last Admin: 11/27/16 09:08 Dose: 10 ml Zolpidem Tartrate (Ambien) 10 mg PO BEDTIME [facility] Last Admin: 11/29/16 20:59 Dose: 10 mg Discontinued Medications Alprazolam (Xanax) 1 mg PO BID [facility] Last Admin: 11/26/16 22:28 Dose: 1 mg Atenolol (Tenormin) 100 mg PO DAILY [facility] Cholecalciferol (Vitamin D3) 2,000 units PO DAILY [facility] Enoxaparin Sodium (Lovenox) 40 mg SUBCUT ONETIME ONE Stop: 11/27/16 16:02 Last Admin: 11/27/16 18:01 Dose: 40 mg Fish Oil (Fish Oil) 1 gm PO DAILY [facility] Furosemide (Lasix) 20 mg IVPUSH Q2H [facility] Last Admin: 11/27/16 04:21 Dose: 20 mg Furosemide (Lasix) 20 mg IVPUSH Q2H [facility] Furosemide (Lasix) 20 mg IVPUSH Q8H [facility] Last Admin: 11/29/16 04:55 Dose: 20 mg Furosemide (Lasix) 40 mg IV Q8H [facility] Last Admin: 11/30/16 04:46 Dose: 40 mg Sodium Chloride (Normal Saline) 1,000 mls @ 75 mls/hr IV ASDIRECTED [facility] Furosemide 100 mg/ Sodium (Chloride) 100 mls @ 13.9 mls/hr IV TITRATE [facility] PRN Reason: Protocol Last Admin: 11/26/16 16:25 Dose: 13.9 ml/hr, 13.9 mls/hr Sodium Chloride (Normal Saline) 100 mls @ 4 mls/sec IV ASDIRECTED [facility] Last Admin: 11/27/16 09:09 Dose: 4 mls/sec Diltiazem HCl 100 mg/ Sodium (Chloride) 100 mls @ 5 mls/hr IV TITRATE [facility]; 5 MG /HR PRN Reason: Protocol Last Admin: 11/29/16 21:01 Dose: 7.5 mg/hr, 7.5 mls/hr Iopamidol (Isovue-370 (76%)) 100 ml IV . DIRECTED [facility] Last Admin: 11/27/16 09:08 Dose: 100 ml Ketorolac Tromethamine (Toradol) 60 mg IM Q6H PRN PRN Reason: Pain Stop: 12/01/16 14:32 Last Admin: 11/26/16 18:50 Dose: 60 mg Lisinopril (Prinivil) 30 mg PO DAILY [facility] Methylprednisolone Sodium Succinate (Solu-Medrol) 125 mg IVPUSH ONETIME ONE Stop: 11/28/16 10:01 Last Admin: 11/28/16 10:24 Dose: 125 mg Methylprednisolone Sodium Succinate (Solu-Medrol) 62.5 mg IVPUSH Q8H [facility] Last Admin: 11/30/16 07:51 Dose: 62.5 mg Multivitamins/Minerals (Thera M Plus) 1 tab PO DAILY [facility] Glucosam/Chondroit/C (/Manganese (Ptom)) 1 each PO DAILY [facility] Invega Sustenna 156 (Mg) 156 mg IM Q30D [facility] Rivaroxaban (Xarelto) 15 mg PO Q12H [facility] - Exam Quality Assessment: Supplemental Oxygen, Urine Catheter General: Alert, Oriented, Cooperative, No Acute Distress Neck: Supple Lungs: Clear to Auscultation, Normal Respiratory Effort, Decreased Breath Sounds (Both bases) Cardiovascular: Regular Rate, Regular Rhythm GI/Abdominal Exam: Soft, No Distention, Other (Obese) Extremities: Other (Massive pitting edema of both legs, mostly dependent areas at this time). No: Normal Inspection Skin: Warm, Dry, Rash (Erythematous rash in both axilla and skin folds) Neurological: No New Focal Deficit Psy/Mental Status: Alert, Normal Affect - Problem List & Annotations (1) Acute respiratory failure with hypoxia and hypercapnia SNOMED Code(s): 46583628, 372930058 Code(s): J96.01 - ACUTE RESPIRATORY FAILURE WITH HYPOXIA; J96.02 - ACUTE RESPIRATORY FAILURE WITH HYPERCAPNIA Status: Acute Current Visit: Yes (2) Anasarca SNOMED Code(s): 694737866, 691191323 Code(s): R60.1 - GENERALIZED EDEMA Status: Acute Current Visit: Yes (3) Morbid obesity with BMI of 70 and over, adult SNOMED Code(s): 517427961 Code(s): E66.01 - MORBID (SEVERE) OBESITY DUE TO EXCESS CALORIES; Z68.45 - BODY MASS INDEX (BMI) 70 OR GREATER, ADULT Status: Chronic Current Visit: No - Problem List Review Problem List Initiated/Reviewed/Updated: Yes - My Orders Last 24 Hours: My Active Orders 11/29/16 11:15 Atenolol [Tenormin] 100 mg PO DAILY 11/29/16 21:00 Gabapentin [Neurontin] 300 mg PO BEDTIME 11/30/16 07:33 Dimethicone/Zinc Oxide [Rash Relief-Zinc Oxide [place]] 0 gm TOP ASDIRECTED PRN 11/30/16 10:07 IS (RT) [RT Incentive Spirometry] [RC] ASDIRECTED 11/30/16 10:08 Blood Glucose Check, Bedside [RC] QIDACANDBED Communication Order [RC] PRN Communication Order [RC] PRN Diabetes Education [RC] Click to Edit Notify Provider [RC] PRN 11/30/16 10:15 Insulin Aspart [NovoLOG] See Protocol SUBCUT ASDIRECTED 11/30/16 17:00 BLOOD GAS ARTERIAL [BG] Timed 11/30/16 20:00 Furosemide [Lasix] 40 mg IV Q12H methylPREDNISolone Sod Succ [Solu-MEDROL] 62.5 mg IVPUSH Q12H 12/01/16 05:00 BLOOD GAS ARTERIAL [BG] Timed CBC W/O DIFF,HEMOGRAM [HEME] Timed (1) COMPREHENSIVE METABOLIC PN,CMP [CHEM] Timed MAGNESIUM [CHEM] Timed PHOSPHORUS [CHEM] Timed - Plan Plan:: Assessment and plan - Acute respiratory failure with hypoxia and hypercapnia - probably related to noncompliance with home C Pap therapy and I suspect he has obesity hypoventilation syndrome after observing her respirations. Some ups and downs with respiratory status. Patient is not very compliant with his noninvasive ventilation. Desaturates very quickly without any supplemental oxygen or noninvasive ventilation. -Continue noninvasive ventilation -Scheduled and as needed nebulizers -Start to wean steroids -Incentive spirometry -Repeat blood gases this afternoon and in the morning -Continue diuresis but slow to every 12 hours with rising BUN and concern for contraction alkalosis Anasarca - Kidney function remains normal, edema slowly improving. -Continue diuresis -Follow-up echo -Strict monitoring of intake and output -Continue Solis catheter Atrial fibrillation with rapid ventricular response - rate control has has finally improved and diltiazem infusion has been weaned down. -Continue atenolol -Continue diltiazem infusion, plan to discontinue this morning -Cardiac monitoring -Optimize volume status Morbid obesity with BMI greater than 70 - patient does not seem to have a strong interest in changing dietary habits at this time. Essential hypertension - blood pressures stable. -Continue home medications Maintenance issues - - DVT prophylaxis - enoxaparin - GI prophylaxis - PPI - Nutrition - diet as tolerated - Solis catheter - placed at the time of admission for intake and output monitoring. This needs to be left in place for strict intake and output monitoring. Disposition - pending at this time. we will need to start some physical therapy at some point once respiratory status stabilizes. Frantz Kaur M.D.
[2016-11-30] MEDS ORDERED: Insulin Aspart 100 Units/ML 3 ML Pen SUBCUT SCH (10:15)
[2016-11-30] MEDS: Nicotine Polacrilex 2 MG Gum CHEW PRN (19:15)
[2016-11-30] MEDS: Zolpidem 5 MG Tab PO SCH (21:24)
[2016-11-30] MEDS: Gabapentin 300 MG Cap PO SCH (21:24)
[2016-11-30] MEDS: Divalproex Sodium Delayed-Release 250 MG Tab.CR PO SCH (21:25)
[2016-12-01] MEDS: HYDROmorphone 1 MG/ML Syringe IVPUSH PRN ×4 (05:26→20:17)
[2016-12-01] MEDS: Albuterol 0.083% 2.5 MG/3 ML Neb Soln NEB SCH ×4 (07:17→20:33)
[2016-12-01] MEDS: Dimethicone 20%/Zinc Oxide 25% 56 GM Spray Bottle TOP PRN (08:00)
[2016-12-01] MEDS: Furosemide 40 MG/4 ML VIAL IV SCH ×2 (08:01→20:20)
[2016-12-01] MEDS: Nystatin Topical Powder 15 GM Bottle TOP SCH ×2 (08:01→20:33)
[2016-12-01] MEDS: methylPREDNISolone Sodium Succinate 125 MG/2 ML SDV IVPUSH SCH ×2 (08:02→20:20)
[2016-12-01] MEDS: Atenolol 50 MG Tab PO SCH (08:02)
[2016-12-01] MEDS: Pantoprazole 40 MG Tab.CR PO SCH (08:02)
[2016-12-01] MEDS: Sertraline 50 MG Tab PO SCH (08:03)
[2016-12-01] MEDS: Enoxaparin 40 MG/0.4 ML Syringe SUBCUT SCH (08:03)
[2016-12-01] MEDS: ALPRAZolam 0.5 MG Tab PO SCH ×2 (08:06→20:34)
[2016-12-01] MEDS: Heparin Sodium 5,000 UNITS in Sodium Chloride 0.9% 500 ML IV SCH (09:58)
--- NOTE | 2016-12-01 10:01 | PCM.PN ---
- General Info Date of Service: 12/01/16 Functional Status: Reports: Pain Controlled. Denies: Ambulating - Review of Systems General: Reports: Weakness Neurological: Reports: Confusion Systems Review Comment:: No acute events overnight. Patient did not use his noninvasive ventilation much and is obtunded this morning. PCO2 was up over 100. Heart rate has remained stable as has the blood pressure. He has not had any fevers. He continues to have adequate diuresis. - Patient Data Vitals - Most Recent: Last Vital Signs Temp 35.9 C 12/01/16 07:40 Pulse 81 12/01/16 07:40 Resp 18 12/01/16 07:40 BP 135/76 12/01/16 08:02 Pulse Ox 95 12/01/16 07:40 Weight - Most Recent: 226.433 kg I&O - Last 24 Hours: Intake & Output 11/30/16 12/01/16 12/01/16 22:59 06:59 14:59 Intake Total 1520 Output Total 2300 1200 1700 Balance -780 -1200 -1700 Lab Results Last 24 Hours: Laboratory Results - last 24 hr 11/30/16 12/01/16 12/01/16 Range/Units 17:00 05:00 05:53 WBC 10.3 (4.5-11.0) K/uL RBC 5.03 (4.30-5.90) M/uL Hgb 12.8 (12.0-15.0) g/dL Hct 45.4 (40.0-54.0) % MCV 90 (80-98) fL MCH 25 L (27-31) pg MCHC 28 L (32-36) % Plt Count 191 (150-400) K/uL Puncture Site Line A-line ABG pH 7.337 L 7.277 L (7.350-7.450) ABG pCO2 84.1 H* 103.0 H* (35.0-42.0) mmHg ABG pO2 98.3 79.4 (75.0-100.0) mmHg ABG HCO3 43.8 H 46.7 H (22.0-26.0) mmol/L ABG Total CO2 39.9 H 43.1 H (23.0-27.0) mmol/L ABG O2 Saturation 97.3 93.5 L (95.0-98.0) % ABG O2 Content 16.9 16.4 (15.0-23.0) %vol ABG Base Excess 14.5 15.5 mm/L ABG Hemoglobin 12.6 L 12.7 L (13.5-18.0) g/dL ABG Oxyhemoglobin 95.0 91.2 % ABG Carboxyhemoglobin 2.0 H 1.9 H (0.0-1.6) % ABG Methemoglobin 0.4 0.6 % Ivan Test TNP Not performed O2 Delivery Device Bipap Bipap Sodium (140-148) mmol/L Potassium (3.6-5.2) mmol/L Chloride (100-108) mmol/L Carbon Dioxide (21-32) mmol/L Anion Gap (5.0-14.0) mmol/L BUN (7-18) mg/dL Creatinine (0.8-1.3) mg/dL Est Cr Clr Drug Dosing mL/min Estimated GFR (MDRD) (>60) Glucose (74-106) mg/dL Calcium (8.5-10.1) mg/dL Phosphorus (2.5-4.9) mg/dL Magnesium (1.8-2.4) mg/dL Total Bilirubin (0.2-1.0) mg/dL AST (15-37) U/L ALT (12-78) U/L Alkaline Phosphatase (46-116) U/L Total Protein (6.4-8.2) g/dL Albumin (3.4-5.0) g/dL Globulin (2.3-3.5) g/dL Albumin/Globulin Ratio (1.2-2.2) 12/01/16 Range/Units 05:53 WBC (4.5-11.0) K/uL RBC (4.30-5.90) M/uL Hgb (12.0-15.0) g/dL Hct (40.0-54.0) % MCV (80-98) fL MCH (27-31) pg MCHC (32-36) % Plt Count (150-400) K/uL Puncture Site ABG pH (7.350-7.450) ABG pCO2 (35.0-42.0) mmHg ABG pO2 (75.0-100.0) mmHg ABG HCO3 (22.0-26.0) mmol/L ABG Total CO2 (23.0-27.0) mmol/L ABG O2 Saturation (95.0-98.0) % ABG O2 Content (15.0-23.0) %vol ABG Base Excess mm/L ABG Hemoglobin (13.5-18.0) g/dL ABG Oxyhemoglobin % ABG Carboxyhemoglobin (0.0-1.6) % ABG Methemoglobin % Ivan Test O2 Delivery Device Sodium 141 (140-148) mmol/L Potassium 4.8 (3.6-5.2) mmol/L Chloride 99 L (100-108) mmol/L Carbon Dioxide 47 H (21-32) mmol/L Anion Gap -0.2 L (5.0-14.0) mmol/L BUN 23 H (7-18) mg/dL Creatinine 0.7 L (0.8-1.3) mg/dL Est Cr Clr Drug Dosing 159.38 mL/min Estimated GFR (MDRD) > 60 (>60) Glucose 115 H (74-106) mg/dL Calcium 8.8 (8.5-10.1) mg/dL Phosphorus 4.6 (2.5-4.9) mg/dL Magnesium 2.1 (1.8-2.4) mg/dL Total Bilirubin 0.8 (0.2-1.0) mg/dL AST 27 (15-37) U/L ALT 33 (12-78) U/L Alkaline Phosphatase 69 (46-116) U/L Total Protein 7.2 (6.4-8.2) g/dL Albumin 2.8 L (3.4-5.0) g/dL Globulin 4.4 H (2.3-3.5) g/dL Albumin/Globulin Ratio 0.6 L (1.2-2.2) Med Orders - Current: Current Medications Acetaminophen (Tylenol) 650 mg PO Q4H PRN PRN Reason: Pain Albuterol (Proventil Neb Soln) 2.5 mg NEB QIDRT [facility] Last Admin: 12/01/16 07:17 Dose: 2.5 mg Albuterol (Proventil Neb Soln) 2.5 mg NEB Q2H PRN PRN Reason: Shortness of Breath Alprazolam (Xanax) 1 mg PO BID [facility] Last Admin: 12/01/16 08:06 Dose: 1 mg Atenolol (Tenormin) 100 mg PO DAILY [facility] Last Admin: 12/01/16 08:02 Dose: 100 mg Dimethicone/Zinc Oxide (Rash Relief-Zinc Oxide [place]) 0 gm TOP ASDIRECTED PRN PRN Reason: Rash Last Admin: 12/01/16 08:00 Dose: 1 spray Divalproex Sodium (Divalproex Sodium) 1,500 mg PO BEDTIME [facility] Last Admin: 11/30/16 21:25 Dose: 1,500 mg Enoxaparin Sodium (Lovenox) 40 mg SUBCUT DAILY [facility] Last Admin: 12/01/16 08:03 Dose: 40 mg Furosemide (Lasix) 40 mg IV Q12H [facility] Last Admin: 12/01/16 08:01 Dose: 40 mg Gabapentin (Neurontin) 300 mg PO BEDTIME [facility] Last Admin: 11/30/16 21:24 Dose: 300 mg Hydromorphone HCl (Dilaudid) 0.5 - 1 mg IVPUSH Q2H PRN PRN Reason: Pain (severe 7-10) Last Admin: 12/01/16 05:26 Dose: 1 mg Hydromorphone HCl (Dilaudid) 2 mg PO Q4H PRN PRN Reason: Pain Last Admin: 11/29/16 06:50 Dose: 2 mg Heparin Sodium (Porcine) 5,000 (units/ Sodium Chloride) 501 mls @ 5 mls/hr IV ASDIRECTED [facility] Last Admin: 11/27/16 15:30 Dose: 5 mls/hr Ibuprofen (Motrin) 600 mg PO Q6H PRN PRN Reason: Pain Insulin Aspart (Novolog) 0 unit SUBCUT ASDIRECTED [facility] PRN Reason: Protocol Methylprednisolone Sodium Succinate (Solu-Medrol) 62.5 mg IVPUSH Q12H [facility] Last Admin: 12/01/16 08:02 Dose: 62.5 mg Nicotine Polacrilex (Nicorelief) 2 mg CHEW Q2H PRN PRN Reason: Other Last Admin: 11/30/16 19:15 Dose: 2 mg Non-Formulary Medication (Paliperidone Palmitate [Invega Sustenna]) 234 mg IM Q30D [facility] Last Admin: 11/30/16 09:38 Dose: 234 mg Nystatin (Nystop) 0 gm TOP BID [facility] Last Admin: 12/01/16 08:01 Dose: 1 applic Pantoprazole Sodium (Protonix) 40 mg PO ACBREAKFAST [facility] Last Admin: 12/01/16 08:02 Dose: 40 mg Sertraline HCl (Zoloft) 100 mg PO DAILY [facility] Last Admin: 12/01/16 08:03 Dose: 100 mg Sodium Chloride (Saline Flush) 10 ml FLUSH ONETIME PRN PRN Reason: per radiology protocol Last Admin: 11/27/16 09:08 Dose: 10 ml Zolpidem Tartrate (Ambien) 10 mg PO BEDTIME [facility] Last Admin: 11/30/16 21:24 Dose: 10 mg Discontinued Medications Alprazolam (Xanax) 1 mg PO BID [facility] Last Admin: 11/26/16 22:28 Dose: 1 mg Atenolol (Tenormin) 100 mg PO DAILY [facility] Cholecalciferol (Vitamin D3) 2,000 units PO DAILY [facility] Enoxaparin Sodium (Lovenox) 40 mg SUBCUT ONETIME ONE Stop: 11/27/16 16:02 Last Admin: 11/27/16 18:01 Dose: 40 mg Fish Oil (Fish Oil) 1 gm PO DAILY [facility] Furosemide (Lasix) 20 mg IVPUSH Q2H [facility] Last Admin: 11/27/16 04:21 Dose: 20 mg Furosemide (Lasix) 20 mg IVPUSH Q2H [facility] Furosemide (Lasix) 20 mg IVPUSH Q8H [facility] Last Admin: 11/29/16 04:55 Dose: 20 mg Furosemide (Lasix) 40 mg IV Q8H [facility] Last Admin: 11/30/16 04:46 Dose: 40 mg Sodium Chloride (Normal Saline) 1,000 mls @ 75 mls/hr IV ASDIRECTED [facility] Furosemide 100 mg/ Sodium (Chloride) 100 mls @ 13.9 mls/hr IV TITRATE [facility] PRN Reason: Protocol Last Admin: 11/26/16 16:25 Dose: 13.9 ml/hr, 13.9 mls/hr Sodium Chloride (Normal Saline) 100 mls @ 4 mls/sec IV ASDIRECTED [facility] Last Admin: 11/27/16 09:09 Dose: 4 mls/sec Diltiazem HCl 100 mg/ Sodium (Chloride) 100 mls @ 5 mls/hr IV TITRATE [facility]; 5 MG /HR PRN Reason: Protocol Last Admin: 11/29/16 21:01 Dose: 7.5 mg/hr, 7.5 mls/hr Iopamidol (Isovue-370 (76%)) 100 ml IV . DIRECTED [facility] Last Admin: 11/27/16 09:08 Dose: 100 ml Ketorolac Tromethamine (Toradol) 60 mg IM Q6H PRN PRN Reason: Pain Stop: 12/01/16 14:32 Last Admin: 11/26/16 18:50 Dose: 60 mg Lisinopril (Prinivil) 30 mg PO DAILY [facility] Methylprednisolone Sodium Succinate (Solu-Medrol) 125 mg IVPUSH ONETIME ONE Stop: 11/28/16 10:01 Last Admin: 11/28/16 10:24 Dose: 125 mg Methylprednisolone Sodium Succinate (Solu-Medrol) 62.5 mg IVPUSH Q8H [facility] Last Admin: 11/30/16 07:51 Dose: 62.5 mg Multivitamins/Minerals (Thera M Plus) 1 tab PO DAILY [facility] Glucosam/Chondroit/C (/Manganese (Ptom)) 1 each PO DAILY [facility] Invega Sustenna 156 (Mg) 156 mg IM Q30D [facility] Rivaroxaban (Xarelto) 15 mg PO Q12H [facility] - Exam Quality Assessment: Supplemental Oxygen, Urine Catheter General: No Acute Distress, Lethargic. No: Alert HEENT: Pupils Equal Neck: Supple Lungs: Clear to Auscultation, Normal Respiratory Effort, Decreased Breath Sounds Cardiovascular: Regular Rate, Regular Rhythm, No Murmurs GI/Abdominal Exam: Soft, No Distention, Other (obese) Extremities: Pedal Edema (massive pitting edema of both lower legs and dependent areas of upper legs). No: Increased Warmth Skin: Warm, Dry Psy/Mental Status: No: Alert, Normal Affect - Problem List & Annotations (1) Acute respiratory failure with hypoxia and hypercapnia SNOMED Code(s): 07816648, 641994913 Code(s): J96.01 - ACUTE RESPIRATORY FAILURE WITH HYPOXIA; J96.02 - ACUTE RESPIRATORY FAILURE WITH HYPERCAPNIA Status: Acute Current Visit: Yes (2) Anasarca SNOMED Code(s): 667307484, 393771069 Code(s): R60.1 - GENERALIZED EDEMA Status: Acute Current Visit: Yes (3) Morbid obesity with BMI of 70 and over, adult SNOMED Code(s): 821718918 Code(s): E66.01 - MORBID (SEVERE) OBESITY DUE TO EXCESS CALORIES; Z68.45 - BODY MASS INDEX (BMI) 70 OR GREATER, ADULT Status: Chronic Current Visit: No - Problem List Review Problem List Initiated/Reviewed/Updated: Yes - My Orders Last 24 Hours: My Active Orders 11/30/16 10:07 IS (RT) [RT Incentive Spirometry] [] ASDIRECTED 11/30/16 10:08 Blood Glucose Check, Bedside [RC] QIDACANDBED Communication Order [RC] PRN Communication Order [RC] PRN Diabetes Education [] Click to Edit Notify Provider [] PRN 11/30/16 10:15 Insulin Aspart [NovoLOG] See Protocol SUBCUT ASDIRECTED 11/30/16 20:00 Furosemide [Lasix] 40 mg IV Q12H methylPREDNISolone Sod Succ [Solu-MEDROL] 62.5 mg IVPUSH Q12H 12/01/16 09:58 BIPAP Adult [RT BiPAP/CPAP] [RC] ASDIRECTED 12/01/16 12:00 BLOOD GAS ARTERIAL [BG] Timed 12/02/16 05:00 BASIC METABOLIC PANEL,BMP [CHEM] Timed BLOOD GAS ARTERIAL [BG] Timed CBC W/O DIFF,HEMOGRAM [HEME] Timed (1) - Plan Plan:: Assessment and plan - Acute respiratory failure with hypoxia and hypercapnia - probably related to noncompliance with home C Pap therapy and I suspect he has obesity hypoventilation syndrome after observing her respirations. PCO2 more elevated today and he is obtunded. We did perform some titrations of the noninvasive ventilation at the bedside and saw improvement in tidal volume and oxygenation with higher inspiratory and expiratory pressures. -Continue noninvasive ventilation -Scheduled and as needed nebulizers -Start to wean steroids -Incentive spirometry -Repeat blood gases this afternoon and in the morning -Continue diuresis every 12 hours Anasarca - Kidney function remains normal, edema slowly improving. -Continue diuresis -Strict monitoring of intake and output -Continue Solis catheter Atrial fibrillation with rapid ventricular response - rate control has has finally improved and diltiazem infusion has been discontinued. -Continue atenolol -Cardiac monitoring -Optimize volume status Morbid obesity with BMI greater than 70 - patient does not seem to have a strong interest in changing dietary habits at this time. Essential hypertension - blood pressures stable. -Continue home medications Maintenance issues - - DVT prophylaxis - enoxaparin - GI prophylaxis - PPI - Nutrition - diet as tolerated - Solis catheter - placed at the time of admission for intake and output monitoring. This needs to be left in place for strict intake and output monitoring. Disposition - pending at this time. we will need to start some physical therapy at some point once respiratory status stabilizes. His profile has been faxed to [facility] for consideration of long-term weaning from his noninvasive ventilation. Tracheostomy may be required unless he makes significant improvement in the next few days. Frantz Kaur M.D.
[2016-12-01] MEDS: Nicotine Polacrilex 2 MG Gum CHEW PRN (12:47)
[2016-12-01] MEDS: Ibuprofen 600 MG Tab PO PRN (12:49)
[2016-12-01] MEDS: Gabapentin 300 MG Cap PO SCH (20:33)
[2016-12-01] MEDS: Zolpidem 5 MG Tab PO SCH (20:34)
[2016-12-01] MEDS: Divalproex Sodium Delayed-Release 250 MG Tab.CR PO SCH (20:34)
[2016-12-02] MEDS: Nicotine Polacrilex 2 MG Gum CHEW PRN ×3 (01:17→16:19)
[2016-12-02] MEDS: HYDROmorphone 1 MG/ML Syringe IVPUSH PRN ×2 (01:17→04:46)
[2016-12-02] MEDS: Albuterol 0.083% 2.5 MG/3 ML Neb Soln NEB SCH ×4 (07:23→20:23)
[2016-12-02] MEDS: methylPREDNISolone Sodium Succinate 125 MG/2 ML SDV IVPUSH SCH (08:24)
[2016-12-02] MEDS: Furosemide 40 MG/4 ML VIAL IV SCH ×2 (08:24→20:17)
[2016-12-02] MEDS ORDERED: ALPRAZolam 0.5 MG Tab PO SCH (09:26)
[2016-12-02] MEDS: Enoxaparin 40 MG/0.4 ML Syringe SUBCUT SCH (09:33)
[2016-12-02] MEDS: Ibuprofen 600 MG Tab PO PRN ×3 (09:33→22:13)
[2016-12-02] MEDS: Sertraline 50 MG Tab PO SCH (09:33)
--- NOTE | 2016-12-02 09:33 | PCM.PN ---
- General Info Date of Service: 12/02/16 Functional Status: Reports: Pain Controlled, Tolerating Diet - Review of Systems General: Reports: Weakness. Denies: Fever, Chills Pulmonary: Reports: Shortness of Breath. Denies: Cough Cardiovascular: Reports: Dyspnea on Exertion. Denies: Chest Pain, Palpitations Gastrointestinal: Reports: No Symptoms Systems Review Comment:: This patient is a 26-year-old gentleman admitted with weakness and respiratory compromise secondary to obesity related hypoventilation with acute on chronic hypoxia and hypercapnia. Overall respiratory status has been stable with use of the BiPAP, the BiPAP is off his PCO2 levels tend to climb and he develops a respiratory acidosis. - Patient Data Vitals - Most Recent: Last Vital Signs Temp 96.8 F 12/02/16 06:00 Pulse 74 12/02/16 08:00 Resp 19 12/02/16 08:00 BP 137/78 12/02/16 08:24 Pulse Ox 97 12/02/16 08:00 Weight - Most Recent: 493 lb 9.6 oz I&O - Last 24 Hours: Intake & Output 12/01/16 12/02/16 12/02/16 22:59 06:59 14:59 Intake Total 1040 800 Output Total 2350 2350 Balance -1310 -1550 Lab Results Last 24 Hours: Laboratory Results - last 24 hr 12/01/16 12/02/16 12/02/16 Range/Units 12:00 05:40 05:40 WBC 8.2 (4.5-11.0) K/uL RBC 4.97 (4.30-5.90) M/uL Hgb 12.6 (12.0-15.0) g/dL Hct 45.3 (40.0-54.0) % MCV 91 (80-98) fL MCH 25 L (27-31) pg MCHC 28 L (32-36) % Plt Count 177 (150-400) K/uL Puncture Site Line Line ABG pH 7.375 7.291 L (7.350-7.450) ABG pCO2 81.7 H* 104.0 H* (35.0-42.0) mmHg ABG pO2 99.5 95.8 (75.0-100.0) mmHg ABG HCO3 46.6 H 48.5 H (22.0-26.0) mmol/L ABG Total CO2 41.7 H 44.5 H (23.0-27.0) mmol/L ABG O2 Saturation 97.9 96.9 (95.0-98.0) % ABG O2 Content 17.9 17.0 (15.0-23.0) %vol ABG Base Excess 17.2 17.3 mm/L ABG Hemoglobin 13.4 L 12.8 L (13.5-18.0) g/dL ABG Oxyhemoglobin 94.7 94.1 % ABG Carboxyhemoglobin 2.7 H 2.3 H (0.0-1.6) % ABG Methemoglobin 0.6 0.6 % Ivan Test Line O2 Delivery Device Bipap Bipap Oxygen Flow Rate L Sodium (140-148) mmol/L Potassium (3.6-5.2) mmol/L Chloride (100-108) mmol/L Carbon Dioxide (21-32) mmol/L Anion Gap (5.0-14.0) mmol/L BUN (7-18) mg/dL Creatinine (0.8-1.3) mg/dL Est Cr Clr Drug Dosing mL/min Estimated GFR (MDRD) (>60) Glucose (74-106) mg/dL Calcium (8.5-10.1) mg/dL 12/02/16 Range/Units 05:40 WBC (4.5-11.0) K/uL RBC (4.30-5.90) M/uL Hgb (12.0-15.0) g/dL Hct (40.0-54.0) % MCV (80-98) fL MCH (27-31) pg MCHC (32-36) % Plt Count (150-400) K/uL Puncture Site ABG pH (7.350-7.450) ABG pCO2 (35.0-42.0) mmHg ABG pO2 (75.0-100.0) mmHg ABG HCO3 (22.0-26.0) mmol/L ABG Total CO2 (23.0-27.0) mmol/L ABG O2 Saturation (95.0-98.0) % ABG O2 Content (15.0-23.0) %vol ABG Base Excess mm/L ABG Hemoglobin (13.5-18.0) g/dL ABG Oxyhemoglobin % ABG Carboxyhemoglobin (0.0-1.6) % ABG Methemoglobin % Ivan Test O2 Delivery Device Oxygen Flow Rate L Sodium 143 (140-148) mmol/L Potassium 4.9 (3.6-5.2) mmol/L Chloride 97 L (100-108) mmol/L Carbon Dioxide 49 H (21-32) mmol/L Anion Gap 1.9 L (5.0-14.0) mmol/L BUN 24 H (7-18) mg/dL Creatinine 0.6 L (0.8-1.3) mg/dL Est Cr Clr Drug Dosing 185.94 mL/min Estimated GFR (MDRD) > 60 (>60) Glucose 110 H (74-106) mg/dL Calcium 8.7 (8.5-10.1) mg/dL Med Orders - Current: Current Medications Acetaminophen (Tylenol) 650 mg PO Q4H PRN PRN Reason: Pain Albuterol (Proventil Neb Soln) 2.5 mg NEB QIDRT [facility] Last Admin: 12/02/16 07:23 Dose: 2.5 mg Albuterol (Proventil Neb Soln) 2.5 mg NEB Q2H PRN PRN Reason: Shortness of Breath Alprazolam (Xanax) 0.5 mg PO BID [facility] Atenolol (Tenormin) 100 mg PO DAILY [facility] Last Admin: 12/01/16 08:02 Dose: 100 mg Dimethicone/Zinc Oxide (Rash Relief-Zinc Oxide [place]) 0 gm TOP ASDIRECTED PRN PRN Reason: Rash Last Admin: 12/01/16 08:00 Dose: 1 spray Divalproex Sodium (Divalproex Sodium) 1,500 mg PO BEDTIME [facility] Last Admin: 12/01/16 20:34 Dose: 1,500 mg Enoxaparin Sodium (Lovenox) 40 mg SUBCUT DAILY [facility] Last Admin: 12/01/16 08:03 Dose: 40 mg Furosemide (Lasix) 40 mg IV Q12H [facility] Last Admin: 12/02/16 08:24 Dose: 40 mg Gabapentin (Neurontin) 300 mg PO BEDTIME [facility] Last Admin: 12/01/16 20:33 Dose: 300 mg Hydromorphone HCl (Dilaudid) 0.5 - 1 mg IVPUSH Q2H PRN PRN Reason: Pain (severe 7-10) Last Admin: 12/02/16 04:46 Dose: 1 mg Heparin Sodium (Porcine) 5,000 (units/ Sodium Chloride) 501 mls @ 5 mls/hr IV ASDIRECTED [facility] Last Admin: 12/01/16 09:58 Dose: 5 mls/hr Ibuprofen (Motrin) 600 mg PO Q6H PRN PRN Reason: Pain Last Admin: 12/01/16 12:49 Dose: 600 mg Insulin Aspart (Novolog) 0 unit SUBCUT ASDIRECTED [facility] PRN Reason: Protocol Nicotine Polacrilex (Nicorelief) 2 mg CHEW Q2H PRN PRN Reason: Other Last Admin: 12/02/16 01:17 Dose: 2 mg Non-Formulary Medication (Paliperidone Palmitate [Invega Sustenna]) 234 mg IM Q30D [facility] Last Admin: 11/30/16 09:38 Dose: 234 mg Nystatin (Nystop) 0 gm TOP BID [facility] Last Admin: 12/01/16 20:33 Dose: 1 applic Pantoprazole Sodium (Protonix) 40 mg PO ACBREAKFAST [facility] Last Admin: 12/01/16 08:02 Dose: 40 mg Sertraline HCl (Zoloft) 100 mg PO DAILY [facility] Last Admin: 12/01/16 08:03 Dose: 100 mg Sodium Chloride (Saline Flush) 10 ml FLUSH ONETIME PRN PRN Reason: per radiology protocol Last Admin: 11/27/16 09:08 Dose: 10 ml Discontinued Medications Alprazolam (Xanax) 1 mg PO BID [facility] Last Admin: 11/26/16 22:28 Dose: 1 mg Alprazolam (Xanax) 1 mg PO BID [facility] Last Admin: 12/01/16 20:34 Dose: 1 mg Atenolol (Tenormin) 100 mg PO DAILY [facility] Cholecalciferol (Vitamin D3) 2,000 units PO DAILY [facility] Enoxaparin Sodium (Lovenox) 40 mg SUBCUT ONETIME ONE Stop: 11/27/16 16:02 Last Admin: 11/27/16 18:01 Dose: 40 mg Fish Oil (Fish Oil) 1 gm PO DAILY [facility] Furosemide (Lasix) 20 mg IVPUSH Q2H [facility] Last Admin: 11/27/16 04:21 Dose: 20 mg Furosemide (Lasix) 20 mg IVPUSH Q2H [facility] Furosemide (Lasix) 20 mg IVPUSH Q8H [facility] Last Admin: 11/29/16 04:55 Dose: 20 mg Furosemide (Lasix) 40 mg IV Q8H [facility] Last Admin: 11/30/16 04:46 Dose: 40 mg Hydromorphone HCl (Dilaudid) 2 mg PO Q4H PRN PRN Reason: Pain Last Admin: 11/29/16 06:50 Dose: 2 mg Sodium Chloride (Normal Saline) 1,000 mls @ 75 mls/hr IV ASDIRECTED [facility] Furosemide 100 mg/ Sodium (Chloride) 100 mls @ 13.9 mls/hr IV TITRATE [facility] PRN Reason: Protocol Last Admin: 11/26/16 16:25 Dose: 13.9 ml/hr, 13.9 mls/hr Sodium Chloride (Normal Saline) 100 mls @ 4 mls/sec IV ASDIRECTED [facility] Last Admin: 11/27/16 09:09 Dose: 4 mls/sec Diltiazem HCl 100 mg/ Sodium (Chloride) 100 mls @ 5 mls/hr IV TITRATE MIKE; 5 MG /HR PRN Reason: Protocol Last Admin: 11/29/16 21:01 Dose: 7.5 mg/hr, 7.5 mls/hr Iopamidol (Isovue-370 (76%)) 100 ml IV . DIRECTED [facility] Last Admin: 11/27/16 09:08 Dose: 100 ml Ketorolac Tromethamine (Toradol) 60 mg IM Q6H PRN PRN Reason: Pain Stop: 12/01/16 14:32 Last Admin: 11/26/16 18:50 Dose: 60 mg Lisinopril (Prinivil) 30 mg PO DAILY [facility] Methylprednisolone Sodium Succinate (Solu-Medrol) 125 mg IVPUSH ONETIME ONE Stop: 11/28/16 10:01 Last Admin: 11/28/16 10:24 Dose: 125 mg Methylprednisolone Sodium Succinate (Solu-Medrol) 62.5 mg IVPUSH Q8H [facility] Last Admin: 11/30/16 07:51 Dose: 62.5 mg Methylprednisolone Sodium Succinate (Solu-Medrol) 62.5 mg IVPUSH Q12H [facility] Last Admin: 12/02/16 08:24 Dose: 62.5 mg Multivitamins/Minerals (Thera M Plus) 1 tab PO DAILY [facility] Glucosam/Chondroit/C (/Manganese (Ptom)) 1 each PO DAILY [facility] Invega Sustenna 156 (Mg) 156 mg IM Q30D [facility] Rivaroxaban (Xarelto) 15 mg PO Q12H [facility] Zolpidem Tartrate (Ambien) 10 mg PO BEDTIME [facility] Last Admin: 12/01/16 20:34 Dose: 10 mg - Exam Quality Assessment: Supplemental Oxygen (BiPAP), Urine Catheter General: Cooperative, No Acute Distress Lungs: Clear to Auscultation, Normal Respiratory Effort Cardiovascular: Regular Rate, Regular Rhythm, No Murmurs GI/Abdominal Exam: Normal Bowel Sounds, Soft, Non-Tender Skin: Warm, Dry, Intact - Problem List Review Problem List Initiated/Reviewed/Updated: Yes - My Orders Last 24 Hours: My Active Orders 12/02/16 09:26 ALPRAZolam [Xanax] 0.5 mg PO BID 12/03/16 05:00 BASIC METABOLIC PANEL,BMP [CHEM] Timed BLOOD GAS ARTERIAL [BG] Timed - Plan Plan:: Assessment and plan - Acute respiratory failure with acute on chronic hypoxia and hypercapnia - probably related to noncompliance with home C Pap therapy and I suspect he has obesity hypoventilation syndrome. PCO2 level again elevated this morning but he had been off of his BiPAP when the laboratory studies were obtained. -Continue noninvasive ventilation -Avoid overall oxygenation, goal oxygen saturation of 88-92% -Scheduled and as needed nebulizers -Discontinue Solu-Medrol -Incentive spirometry -Repeat blood gases this afternoon and in the morning -Continue diuresis every 12 hours Anasarca - Kidney function remains normal, edema slowly improving. -Continue diuresis -Strict monitoring of intake and output -Continue Solis catheter Atrial fibrillation with rapid ventricular response - rate control has has finally improved and diltiazem infusion has been discontinued. -Continue atenolol -Cardiac monitoring -Optimize volume status Morbid obesity with BMI greater than 70 - patient does not seem to have a strong interest in changing dietary habits at this time. Essential hypertension - blood pressures stable. -Continue home medications Maintenance issues - - DVT prophylaxis - enoxaparin - GI prophylaxis - PPI - Nutrition - diet as tolerated - Solis catheter - placed at the time of admission for intake and output monitoring. This needs to be left in place for strict intake and output monitoring. Disposition - pending at this time. we will need to start some physical therapy at some point once respiratory status stabilizes. His profile has been faxed to [facility] for consideration of long-term weaning from his noninvasive ventilation. Tracheostomy may be required unless he makes significant improvement in the next few days.
[2016-12-02] MEDS: Pantoprazole 40 MG Tab.CR PO SCH (09:34)
[2016-12-02] MEDS: Nystatin Topical Powder 15 GM Bottle TOP SCH ×2 (09:34→20:22)
[2016-12-02] MEDS: ALPRAZolam 0.5 MG Tab PO SCH ×3 (11:48→20:20)
[2016-12-02] MEDS: Atenolol 50 MG Tab PO SCH (11:48)
[2016-12-02] MEDS: Gabapentin 300 MG Cap PO SCH (20:20)
[2016-12-02] MEDS: Divalproex Sodium Delayed-Release 250 MG Tab.CR PO SCH (20:20)
[2016-12-03] MEDS: Haloperidol Lactate 5 MG/ML SDV IVPUSH PRN ×2 (01:28→05:14)
[2016-12-03] MEDS: Albuterol 0.083% 2.5 MG/3 ML Neb Soln NEB SCH ×2 (07:28→10:56)
[2016-12-03] MEDS: Pantoprazole 40 MG Tab.CR PO SCH (08:41)
[2016-12-03] MEDS: Furosemide 40 MG/4 ML VIAL IV SCH (08:41)
[2016-12-03] MEDS: Enoxaparin 40 MG/0.4 ML Syringe SUBCUT SCH (08:44)
[2016-12-03] MEDS: Nystatin Topical Powder 15 GM Bottle TOP SCH (08:45)
[2016-12-03] MEDS: Sertraline 50 MG Tab PO SCH (08:46)
[2016-12-03] MEDS: ALPRAZolam 0.5 MG Tab PO SCH (08:48)
[2016-12-03] MEDS ORDERED: Atenolol 25 MG Tab PO SCH (09:00)
--- NOTE | 2016-12-03 10:48 | PCM.DCSUM1 ---
Discharge Summary - Hospital Course Brief History: Mr. Arnold is a 26-year-old gentleman who is admitted through the emergency department because of lethargy and respiratory compromise. - Discharge Data Discharge Date: 12/03/16 Discharge Disposition: DC/Tfer to Other 70 Condition: Fair - Discharge Diagnosis/Problem(s) (1) Acute on chronic respiratory failure with hypercapnia SNOMED Code(s): 9580427246763 ICD Code: J96.22 - ACUTE AND CHRONIC RESPIRATORY FAILURE WITH HYPERCAPNIA Status: Acute Current Visit: Yes (2) Acute on chronic respiratory failure with hypoxemia SNOMED Code(s): 00622702924458836 ICD Code: J96.21 - ACUTE AND CHRONIC RESPIRATORY FAILURE WITH HYPOXIA Status: Acute Current Visit: Yes (3) Anasarca SNOMED Code(s): 619201875, 536420913 ICD Code: R60.1 - GENERALIZED EDEMA Status: Acute Current Visit: Yes (4) Morbid obesity with BMI of 70 and over, adult SNOMED Code(s): 601955054 ICD Code: E66.01 - MORBID (SEVERE) OBESITY DUE TO EXCESS CALORIES; Z68.45 - BODY MASS INDEX (BMI) 70 OR GREATER, ADULT Status: Chronic Current Visit: No - Patient Summary/Data Consults: Consultations 11/26/16 14:28 Consult to Dietary [Consult to Montessori Teacher] [CONS] Routine Comment: Physician Instructions: Quantity: Reason for Consult: dietary recommendations on appropriate calorie per meal. Person Notified: Olga Rivera Date Notified: 11/26/16 Time Notified: 14:30 11/27/16 07:28 Respiratory Care Assess and Treatment [CONS] Routine Comment: Physician Instructions: Reason for Consult: increased rep rate - 60 Person Notified: terry barros Date Notified: 11/27/16 Time Notified: 07:29 11/27/16 09:17 Consult to Physician [CONS] Urgent Consulting Provider: Frantz Kaur Courtesy Call Completed to Consulting Physician: Yes Reason for Consult: assume cares, pt transfered to ICU, VEE OOT after today. Person Notified: jordin garcia Date Notified: 11/27/16 Time Notified: 09:19 Hospital Course: Mr. Arnold is a 26-year-old gentleman who has developed severe morbid obesity with a BMI of 72.1. Over the past few months has become progressively more lethargic and weak to the point where he's been unable to stand or even move himself in bed. As he became more lethargic and less responsive family called 911 to have him brought into the hospital. Paramedics were unable to get him on a gurney in the house or even down the stairs so a window was removed and a lift from the fire department was used to move him down to ground level where he could be put in the ambulance. When he arrived in the emergency department blood gases showed evidence of acute on chronic respiratory failure with evidence of chronic hypoxia and hypercapnia. He was also found to have severe peripheral edema extending all the way of his legs and into the back. On admission he was started on regular dosing of IV Lasix as well as BiPAP for respiratory support. Continued to have difficulty with severe CO2 retention and respiratory acidosis, this was felt to be secondary to obesity related hypoventilation syndrome. Sedating medications were discontinued and following that oxygenation and CO2 retention did improve but certainly did not resolve. There was no evidence of significant underlying infection contributing to respiratory compromise. With diuresis there was marked improvement in the anasarca and his weight dropped several times during the hospital stay. Because of the chronic nature of his current respiratory problem that was not felt to be safe to return home. For this reason he will be discharged with [facility] in [facility]. Activity will be as tolerated and he will resume his usual diet. - Patient Instructions Diet: Low Sodium Activity: As Tolerated Other/Special Instructions: Patient will be transferred to [facility] in the [facility] via [facility] ambulance. - Discharge Plan Prescriptions/Med Rec: Furosemide 40 mg PO BID #60 tablet Home Medications: Home Meds Lisinopril 30 mg PO DAILY 09/06/15 [History] Atenolol 100 mg PO DAILY 09/07/15 [History] Cholecalciferol (Vitamin D3) [D3-2000] 2,000 unit PO DAILY 09/07/15 [History] Divalproex Sodium [Depakote] 1,500 mg PO BEDTIME 09/07/15 [History] Glucosam/Chondroit/C/Manganese [Cosamin Ds Capsule] 1 each PO DAILY 09/07/15 [ History] Multivitamin [Multi-Vitamin Daily] 1 each PO DAILY 09/07/15 [History] [place]-3/DHA/Epa/Fish Oil [Fish Oil Dr 500 mg Softgel] 1,000 mg PO DAILY [History] Paliperidone Palmitate [Invega Sustenna] 234 mg IM Q30D 09/07/15 [History] Pantoprazole [ProTONIX] 40 mg PO DAILY 09/07/15 [History] Sertraline [Zoloft] 100 mg PO DAILY 09/20/15 [History] Desmopressin Acetate 2 tab PO BEDTIME 11/26/16 [History] Ibuprofen [Motrin] 600 mg PO BID 11/26/16 [History] ALPRAZolam [Xanax] 0.5 mg PO BID tablet 12/03/16 [Rx] Furosemide 40 mg PO BID #60 tablet 12/03/16 [Rx] Gabapentin [Neurontin] 300 mg PO BEDTIME cap 12/03/16 [Rx] Ibuprofen [IJD: Ibuprofen] 600 mg PO Q6H PRN #0 tablet 12/03/16 [Rx] Nicotine Polacrilex [Nicorelief] 2 mg CHEW Q2H PRN #0 gum 12/03/16 [Rx] Forms: ED Department Discharge Referrals: PCP,None [Ordering Only Provider] - - Patient Data Vitals - Most Recent: Last Vital Signs Temp 97.6 F 12/03/16 08:00 Pulse 78 12/03/16 08:47 Resp 18 12/03/16 08:00 BP 137/85 12/03/16 08:47 Pulse Ox 92 L 12/03/16 08:00 Weight - Most Recent: 487 lb I&O - Last 24 hours: Intake & Output 12/02/16 12/03/16 12/03/16 22:59 06:59 14:59 Intake Total 800 240 Output Total 3900 1000 Balance -3100 -760 Lab Results - Last 24 hrs: Laboratory Results - last 24 hr 12/02/16 12/03/16 12/03/16 Range/Units 16:36 04:50 05:00 Puncture Site A-line Line ABG pH 7.444 7.450 (7.350-7.450) ABG pCO2 73.3 H* 72.7 H* (35.0-42.0) mmHg ABG pO2 49.1 L 74.5 L (75.0-100.0) mmHg ABG HCO3 49.5 H 49.8 H (22.0-26.0) mmol/L ABG Total CO2 44.1 H 44.1 H (23.0-27.0) mmol/L ABG O2 Saturation 83.0 L 94.9 L (95.0-98.0) % ABG O2 Content 14.6 L 16.6 (15.0-23.0) %vol ABG Base Excess 20.9 21.3 mm/L ABG Hemoglobin 12.9 L 12.8 L (13.5-18.0) g/dL ABG Oxyhemoglobin 80.6 91.7 % ABG Carboxyhemoglobin 2.2 H 2.8 H (0.0-1.6) % ABG Methemoglobin 0.7 0.6 % Ivan Test Passed O2 Delivery Device Nasal cannula Bipap Oxygen Flow Rate L Sodium 143 (140-148) mmol/L Potassium 4.1 (3.6-5.2) mmol/L Chloride 98 L (100-108) mmol/L Carbon Dioxide 48 H (21-32) mmol/L Anion Gap 1.1 L (5.0-14.0) mmol/L BUN 29 H (7-18) mg/dL Creatinine 0.7 L (0.8-1.3) mg/dL Est Cr Clr Drug Dosing 159.38 mL/min Estimated GFR (MDRD) > 60 (>60) Glucose 80 (74-106) mg/dL Calcium 8.7 (8.5-10.1) mg/dL Med Orders - Current: Current Medications Acetaminophen (Tylenol) 650 mg PO Q4H PRN PRN Reason: Pain Last Admin: 12/02/16 12:51 Dose: 650 mg Albuterol (Proventil Neb Soln) 2.5 mg NEB QIDRT [facility] Last Admin: 12/03/16 07:28 Dose: 2.5 mg Albuterol (Proventil Neb Soln) 2.5 mg NEB Q2H PRN PRN Reason: Shortness of Breath Alprazolam (Xanax) 0.5 mg PO BID [facility] Last Admin: 12/03/16 08:48 Dose: 0.5 mg Atenolol (Tenormin) 100 mg PO DAILY [facility] Last Admin: 12/03/16 08:47 Dose: 100 mg Dimethicone/Zinc Oxide (Rash Relief-Zinc Oxide [employer]) 0 gm TOP ASDIRECTED PRN PRN Reason: Rash Last Admin: 12/01/16 08:00 Dose: 1 spray Divalproex Sodium (Divalproex Sodium) 1,500 mg PO BEDTIME [facility] Last Admin: 12/02/16 20:20 Dose: 1,500 mg Enoxaparin Sodium (Lovenox) 40 mg SUBCUT DAILY [facility] Last Admin: 12/03/16 08:44 Dose: 40 mg Furosemide (Lasix) 40 mg IV Q12H [facility] Last Admin: 12/03/16 08:41 Dose: 40 mg Gabapentin (Neurontin) 300 mg PO BEDTIME [facility] Last Admin: 12/02/16 20:20 Dose: 300 mg Haloperidol Lactate (Haldol) 2 mg IVPUSH Q2H PRN PRN Reason: Agitation Last Admin: 12/03/16 05:14 Dose: 2 mg Heparin Sodium (Porcine) 5,000 (units/ Sodium Chloride) 501 mls @ 5 mls/hr IV ASDIRECTED [facility] Last Admin: 12/01/16 09:58 Dose: 5 mls/hr Ibuprofen (Motrin) 600 mg PO Q6H PRN PRN Reason: Pain Last Admin: 12/02/16 22:13 Dose: 600 mg Insulin Aspart (Novolog) 0 unit SUBCUT ASDIRECTED [facility] PRN Reason: Protocol Nicotine Polacrilex (Nicorelief) 2 mg CHEW Q2H PRN PRN Reason: Other Last Admin: 12/02/16 16:19 Dose: 2 mg Non-Formulary Medication (Paliperidone Palmitate [Invega Sustenna]) 234 mg IM Q30D [facility] Last Admin: 11/30/16 09:38 Dose: 234 mg Nystatin (Nystop) 0 gm TOP BID [facility] Last Admin: 12/03/16 08:45 Dose: 1 applic Pantoprazole Sodium (Protonix) 40 mg PO ACBREAKFAST [facility] Last Admin: 12/03/16 08:41 Dose: 40 mg Sertraline HCl (Zoloft) 100 mg PO DAILY [facility] Last Admin: 12/03/16 08:46 Dose: 100 mg Sodium Chloride (Saline Flush) 10 ml FLUSH ONETIME PRN PRN Reason: per radiology protocol Last Admin: 11/27/16 09:08 Dose: 10 ml Discontinued Medications Alprazolam (Xanax) 1 mg PO BID [facility] Last Admin: 11/26/16 22:28 Dose: 1 mg Alprazolam (Xanax) 1 mg PO BID [facility] Last Admin: 12/02/16 12:04 Dose: Not Given Atenolol (Tenormin) 100 mg PO DAILY [facility] Last Admin: 12/02/16 11:48 Dose: 100 mg Enoxaparin Sodium (Lovenox) 40 mg SUBCUT ONETIME ONE Stop: 11/27/16 16:02 Last Admin: 11/27/16 18:01 Dose: 40 mg Furosemide (Lasix) 20 mg IVPUSH Q2H [facility] Last Admin: 11/27/16 04:21 Dose: 20 mg Furosemide (Lasix) 20 mg IVPUSH Q8H [facility] Last Admin: 11/29/16 04:55 Dose: 20 mg Furosemide (Lasix) 40 mg IV Q8H [facility] Last Admin: 11/30/16 04:46 Dose: 40 mg Hydromorphone HCl (Dilaudid) 0.5 - 1 mg IVPUSH Q2H PRN PRN Reason: Pain (severe 7-10) Last Admin: 12/02/16 04:46 Dose: 1 mg Hydromorphone HCl (Dilaudid) 2 mg PO Q4H PRN PRN Reason: Pain Last Admin: 11/29/16 06:50 Dose: 2 mg Sodium Chloride (Normal Saline) 1,000 mls @ 75 mls/hr IV ASDIRECTED [facility] Furosemide 100 mg/ Sodium (Chloride) 100 mls @ 13.9 mls/hr IV TITRATE [facility] PRN Reason: Protocol Last Admin: 11/26/16 16:25 Dose: 13.9 ml/hr, 13.9 mls/hr Sodium Chloride (Normal Saline) 100 mls @ 4 mls/sec IV ASDIRECTED [facility] Last Admin: 11/27/16 09:09 Dose: 4 mls/sec Diltiazem HCl 100 mg/ Sodium (Chloride) 100 mls @ 5 mls/hr IV TITRATE MIKE; 5 MG /HR PRN Reason: Protocol Last Admin: 11/29/16 21:01 Dose: 7.5 mg/hr, 7.5 mls/hr Iopamidol (Isovue-370 (76%)) 100 ml IV . DIRECTED [facility] Last Admin: 08/02/17 09:08 Dose: 100 ml Ketorolac Tromethamine (Toradol) 60 mg IM Q6H PRN PRN Reason: Pain Stop: 12/01/16 14:32 Last Admin: 11/26/16 18:50 Dose: 60 mg Methylprednisolone Sodium Succinate (Solu-Medrol) 125 mg IVPUSH ONETIME ONE Stop: 11/28/16 10:01 Last Admin: 11/28/16 10:24 Dose: 125 mg Methylprednisolone Sodium Succinate (Solu-Medrol) 62.5 mg IVPUSH Q8H [facility] Last Admin: 11/30/16 07:51 Dose: 62.5 mg Methylprednisolone Sodium Succinate (Solu-Medrol) 62.5 mg IVPUSH Q12H [facility] Last Admin: 12/02/16 08:24 Dose: 62.5 mg Invega Sustenna 156 (Mg) 156 mg IM Q30D [facility] Zolpidem Tartrate (Ambien) 10 mg PO BEDTIME [facility] Last Admin: 12/01/16 20:34 Dose: 10 mg *Q Meaningful Use (DIS) - VTE *Q VTE Criteria *Q: - Stroke *Q Stroke Criteria *Q: - AMI *Q AMI Criteria *Q:
[2016-12-03 11:48] VITALS: BP 124/43
== END 2016-12-03 12:56 | disposition other institution (70) | DRG 189 ==
LOC: JP.ED 11:15 → JP.2SS 13:28 → JP.ICU 11-27 09:00
PROVIDERS: ADMIT Internal Medicine; ATTEND Hospitalist
PROC: 0T2BX0Z Change Drainage Device in Bladder, External Approach (ICD-10-PCS; 2016-11-26)
PROC: 03HY32Z Insertion of Monitoring Device into Upper Artery, Percutaneous Approach (ICD-10-PCS; principal; 2016-12-02)
DX: J96.22 Acute and chronic respiratory failure with hypercapnia (principal); Z68.45 Body mass index [BMI] 70 or greater, adult; E66.2 Morbid (severe) obesity with alveolar hypoventilation; N25.1 Nephrogenic diabetes insipidus; J96.21 Acute and chronic respiratory failure with hypoxia; R60.1 Generalized edema; E66.01 Morbid (severe) obesity due to excess calories; I10 Essential (primary) hypertension; K21.9 Gastro-esophageal reflux disease without esophagitis; F41.8 Other specified anxiety disorders; E03.9 Hypothyroidism, unspecified; M10.9 Gout, unspecified; Z79.899 Other long term (current) drug therapy; I48.91 Unspecified atrial fibrillation
CPT/HCPCS: 36415; 36600; 51702; 71275; 71275-26; 80048; 80053; 81001; 82803; 82962; 83735; 84100; 84443; 84484; 85025; 85027; 85379; 86140; 87040; 93005; 93306; 94640; 94640-76; 94660; 99285; 99285-25; A9270-GY; J1170; J1630; J1644; J1650; J1885; J1940; J2930; J3490; J7030; J7040; J7050; Q9967

== ENCOUNTER 2017-02-19 12:21 | Emergency (ER) | payer MEDICAID ==
--- NOTE | 2017-02-19 13:59 | EDM.PDOC ---
ED HPI GENERAL MEDICAL PROBLEM - General Chief Complaint: Chest Pain Stated Complaint: CHEST PAIN Time Seen by Provider: 02/19/17 13:23 Source of Information: Reports: Patient, Old Records, RN Notes Reviewed History Limitations: Reports: No Limitations - History of Present Illness INITIAL COMMENTS - FREE TEXT/NARRATIVE: 26-year-old gentleman presents emergency department day complaint of shortness of breath chest pain nausea headache this occurred almost ED immediately after accidentally ingesting to medications for his dog 1 antibiotic any other anti- inflammatory. He states all the symptoms have now resolved except for the nausea as he is hungry Treatments UI DEVELOPER WITH ANGULAR JS: Reports: Other (see below) Other Treatments UI DEVELOPER WITH ANGULAR JS: Xanax Left Upper Chest Pain Score (Numeric/FACES): 6 - Related Data Allergies Allergy/AdvReac Type Severity Reaction Status Date / Time No Known Allergies Allergy Verified 02/19/17 12:47 Home Meds: Home Meds Lisinopril 30 mg PO DAILY 09/06/15 [History] Atenolol 100 mg PO DAILY 09/07/15 [History] Cholecalciferol (Vitamin D3) [D3-2000] 2,000 unit PO DAILY 09/07/15 [History] Divalproex Sodium [Depakote] 1,500 mg PO BEDTIME 09/07/15 [History] Glucosam/Chondroit/C/Manganese [Cosamin Ds Capsule] 1 each PO DAILY 09/07/15 [ History] Multivitamin [Multi-Vitamin Daily] 1 each PO DAILY 09/07/15 [History] Paliperidone Palmitate [Invega Sustenna] 234 mg IM Q30D 09/07/15 [History] Sertraline [Zoloft] 100 mg PO DAILY 09/20/15 [History] Desmopressin Acetate 2 tab PO BEDTIME 11/26/16 [History] Furosemide 40 mg PO BID #60 tablet 12/03/16 [Rx] Nicotine Polacrilex [Nicorelief] 2 mg CHEW Q2H PRN #0 gum 12/03/16 [Rx] ALPRAZolam [Alprazolam ER] 2 mg PO ASDIRECTED 02/19/17 [History] Cyclobenzaprine HCl [Cyclobenzaprine HCl] 10 mg PO ASDIRECTED 02/19/17 [History] Gabapentin [Neurontin] 300 mg PO TID 02/19/17 [History] Ibuprofen [IJD: Ibuprofen] 600 mg PO DAILY 02/19/17 [History] Metoprolol Succinate [Metoprolol Succinate] 100 mg PO BID 02/19/17 [History] Warfarin Sodium [Warfarin Sodium] 6.5 mg PO ASDIRECTED 02/19/17 [History] Warfarin Sodium [Warfarin Sodium] 7 mg PO ASDIRECTED 02/19/17 [History] Past Medical History HEENT History: Reports: Impaired Vision Cardiovascular History: Reports: Afib, Hypertension Gastrointestinal History: Reports: Chronic Constipation, GERD Genitourinary History: Reports: Other (See Below) Other Genitourinary History: Nocturnal enuresis, nephrogenic diabetes insipidus Musculoskeletal History: Reports: Gout, Osteoarthritis Neurological History: Reports: Concussion Psychiatric History: Reports: Anxiety, Bipolar, Depression, Panic Attack, Psych Hospitalization(s), Schizophrenia Endocrine/Metabolic History: Reports: Hypothyroidism, Obesity/BMI 30+ Dermatologic History: Reports: Other (See Below) Other Dermatologic History: rash in skin folds - Infectious Disease History Infectious Disease History: Reports: Chicken Pox Social & Family History - Family History Family Medical History: Unobtainable - Tobacco Use Smoking Status *Q: Current Some Day Smoker Years of Tobacco use: 2 Packs/Tins Daily: 1 Second Hand Smoke Exposure: Yes - Caffeine Use Caffeine Use: Reports: Coffee, Energy Drinks, Soda - Alcohol Use Days Per Week of Alcohol Use: 1 Number of Drinks Per Day: 6 Total Drinks Per Week: 6 - Recreational Drug Use Recreational Drug Use: Yes Drug Use in Last 12 Months: No ED ROS GENERAL - Review of Systems Review Of Systems: See Below Constitutional: Reports: No Symptoms HEENT: Reports: No Symptoms Respiratory: Reports: Shortness of Breath Cardiovascular: Reports: Chest Pain GI/Abdominal: Reports: Nausea. Denies: Vomiting : Reports: No Symptoms Musculoskeletal: Reports: No Symptoms Skin: Reports: No Symptoms Neurological: Reports: Headache ED EXAM, GENERAL - Physical Exam Exam: See Below Exam Limited By: No Limitations General Appearance: Alert, WD/WN, No Apparent Distress Eye Exam: Bilateral Eye: Normal Inspection Head: Atraumatic, Normocephalic Neck: Normal Inspection, Supple, Non-Tender, Full Range of Motion Respiratory/Chest: No Respiratory Distress, Lungs Clear, Normal Breath Sounds, No Accessory Muscle Use Cardiovascular: Regular Rate, Rhythm, No Murmur GI/Abdominal: Soft, Non-Tender Course - Vital Signs Last Recorded V/S: Last Vital Signs Temp 97.3 F 02/19/17 12:28 Pulse 85 02/19/17 12:28 Resp 18 02/19/17 12:28 BP Pulse Ox 94 L 02/19/17 12:28 Departure - Departure Time of Disposition: 13:59 Disposition: Home, Self-Care 01 Condition: Good Clinical Impression: Panic attack Referrals: Jasper Vasquez BILINGUAL SPEECH LANGUAGE PATHOLOGIST [Primary Care Provider] - Additional Instructions: Please followup with your primary care provider in 3-5 days if not better, please call return to the emergency department with worsening of symptoms. - Assessment/Plan Plan: Assessment Acuity = acute Site and laterality = panic attack Etiology = generalized anxiety disorder Manifestations = nausea, headache, chest pain, shortness of breath all resolved Location of injury = Home Lab values = patient declined Plan Discharge home follow-up with primary care as needed Patient was in agreement with the plan all questions were answered, they were instructed to return to the emergency department or call for worsening symptoms. This note was dictated using [employer] voice recognition software please call with any questions.
== END 2017-02-19 14:20 | disposition home or self-care (01) ==
LOC: JP.ED 12:21
DX: F41.0 Panic disorder [episodic paroxysmal anxiety] (principal); I10 Essential (primary) hypertension; K21.9 Gastro-esophageal reflux disease without esophagitis; I48.91 Unspecified atrial fibrillation; E03.9 Hypothyroidism, unspecified; E66.9 Obesity, unspecified; F17.210 Nicotine dependence, cigarettes, uncomplicated; Z79.899 Other long term (current) drug therapy
CPT/HCPCS: 99284; 99285

== ENCOUNTER 2017-04-05 09:19 | Emergency (ER) | payer MEDICAID | END 2017-04-05 09:35 | disposition left against medical advice (07) | LOC: JP.ED 09:19 | DX: Z53.21 Procedure and treatment not carried out due to patient leaving prior to being seen by health care provider (principal) ==

== ENCOUNTER 2017-06-28 02:22 | Emergency (ER) | payer MEDICAID ==
[2017-06-28 02:33] VITALS: BP 166/108
--- NOTE | 2017-06-28 02:57 | EDM.PDOC ---
ED HPI GENERAL MEDICAL PROBLEM - General Chief Complaint: ENT Problem Stated Complaint: TOOTH PAIN Time Seen by Provider: 06/28/17 02:44 Source of Information: Reports: Patient, RN Notes Reviewed History Limitations: Reports: No Limitations - History of Present Illness INITIAL COMMENTS - FREE TEXT/NARRATIVE: 27-year-old gentleman presents emergency department today with complaint of dental pain, he states he's had a fractured tooth for some time however over the last couple days the pain has gotten progressively worse denies any fevers does have intermittent swelling in the jaw Right Lower Face Pain Score (Numeric/FACES): 9 - Related Data Allergies Allergy/AdvReac Type Severity Reaction Status Date / Time No Known Allergies Allergy Verified 02/19/17 12:47 Home Meds: Home Meds Atenolol 100 mg PO DAILY 09/07/15 [History] Cholecalciferol (Vitamin D3) [D3-2000] 2,000 unit PO DAILY 09/07/15 [History] Divalproex Sodium [Depakote] 1,500 mg PO BEDTIME 09/07/15 [History] Glucosam/Chondroit/C/Manganese [Cosamin Ds Capsule] 1 each PO DAILY 09/07/15 [ History] Multivitamin [Multi-Vitamin Daily] 1 each PO DAILY 09/07/15 [History] Paliperidone Palmitate [Invega Sustenna] 234 mg IM Q30D 09/07/15 [History] Sertraline [Zoloft] 100 mg PO DAILY 09/20/15 [History] Desmopressin Acetate 2 tab PO BEDTIME 11/26/16 [History] Furosemide 40 mg PO BID #60 tablet 12/03/16 [Rx] Nicotine Polacrilex [Nicorelief] 2 mg CHEW Q2H PRN #0 gum 12/03/16 [Rx] ALPRAZolam [Alprazolam ER] 2 mg PO ASDIRECTED 02/19/17 [History] Cyclobenzaprine HCl [Cyclobenzaprine HCl] 10 mg PO ASDIRECTED 02/19/17 [History] Gabapentin [Neurontin] 300 mg PO TID 02/19/17 [History] Warfarin Sodium [Warfarin Sodium] 6.5 mg PO ASDIRECTED 02/19/17 [History] Warfarin Sodium [Warfarin Sodium] 7 mg PO ASDIRECTED 02/19/17 [History] Haloperidol [Haldol] 06/28/17 [History] Past Medical History HEENT History: Reports: Impaired Vision Cardiovascular History: Reports: Afib, Hypertension Gastrointestinal History: Reports: Chronic Constipation, GERD Genitourinary History: Reports: Other (See Below) Other Genitourinary History: Nocturnal enuresis, nephrogenic diabetes insipidus Musculoskeletal History: Reports: Gout, Osteoarthritis Neurological History: Reports: Concussion Psychiatric History: Reports: Anxiety, Bipolar, Depression, Panic Attack, Psych Hospitalization(s), Schizophrenia Endocrine/Metabolic History: Reports: Hypothyroidism, Obesity/BMI 30+ Dermatologic History: Reports: Other (See Below) Other Dermatologic History: rash in skin folds - Infectious Disease History Infectious Disease History: Reports: Chicken Pox Social & Family History - Family History Family Medical History: Unobtainable - Tobacco Use Smoking Status *Q: Former Smoker Years of Tobacco use: 2 Packs/Tins Daily: 1 Used Tobacco, but Quit: Yes Month Tobacco Last Used: 12 Second Hand Smoke Exposure: Yes - Caffeine Use Caffeine Use: Reports: Coffee - Alcohol Use Days Per Week of Alcohol Use: 1 Number of Drinks Per Day: 6 Total Drinks Per Week: 6 - Recreational Drug Use Recreational Drug Use: No Drug Use in Last 12 Months: No ED ROS ENT - Review of Systems Review Of Systems: See Below Constitutional: Reports: No Symptoms HEENT: Reports: Dental Pain Respiratory: Reports: No Symptoms Cardiovascular: Reports: No Symptoms ED EXAM, ENT - Physical Exam Exam: See Below Text/Narrative:: Mouth mucosa is moist and pink no erythema or exudate noted in soft palate tongue is midline uvula is midline tooth #28 is fractured there is tenderness to palpation around tooth Exam Limited By: No Limitations General Appearance: Alert, WD/WN, No Apparent Distress Head: Atraumatic, Normocephalic Neck: Normal Inspection, Supple, Non-Tender, Full Range of Motion Respiratory/Chest: No Respiratory Distress Course - Vital Signs Last Recorded V/S: Last Vital Signs Temp 96.9 F 06/28/17 02:33 Pulse 89 06/28/17 02:33 Resp 16 06/28/17 02:33 BP 166/108 H 06/28/17 02:33 Pulse Ox 96 06/28/17 02:33 Departure - Departure Time of Disposition: 02:55 Disposition: Home, Self-Care 01 Condition: Good Clinical Impression: Pain, dental - Discharge Information Referrals: Jasper Vasquez NP [Primary Care Provider] - Additional Instructions: Use ibuprofen for baseline pain control, use hydrocodone for breakthrough pain, please [facility] at 8:15 on June 30 - Assessment/Plan Plan: Assessment Acuity = acute Site and laterality = dental pain #28 Etiology = secondary to trauma Manifestations = none Location of injury = Home Lab values = none Plan Prescription written for hydrocodone 5/325 one tab by mouth 3 times a day when necessary total #10, referral to dentistry written for June 30 This note was dictated using [employer] voice recognition software please call with any questions on syntax or alfonso.
== END 2017-06-28 03:03 | disposition home or self-care (01) ==
LOC: JP.ED 02:22
DX: K08.89 Other specified disorders of teeth and supporting structures (principal); K03.81 Cracked tooth; I10 Essential (primary) hypertension; I48.91 Unspecified atrial fibrillation; K21.9 Gastro-esophageal reflux disease without esophagitis; F31.9 Bipolar disorder, unspecified; E03.9 Hypothyroidism, unspecified; Z87.891 Personal history of nicotine dependence; Z79.01 Long term (current) use of anticoagulants; Z79.899 Other long term (current) drug therapy
CPT/HCPCS: 99283

== ENCOUNTER 2017-06-30 09:11 | Emergency (ER) | payer MEDICAID ==
[2017-06-30 09:37] VITALS: BP 155/104
--- NOTE | 2017-06-30 10:19 | EDM.PDOC ---
ED HPI GENERAL MEDICAL PROBLEM - General Chief Complaint: ENT Problem Stated Complaint: TOOTH PAIN Time Seen by Provider: 06/30/17 09:55 Source of Information: Reports: Patient, Family History Limitations: Reports: No Limitations - History of Present Illness INITIAL COMMENTS - FREE TEXT/NARRATIVE: 27-year-old male with right mandibular dental pain off and on for months, he has missed dental appointments and has not had this repaired. Over the past several days he's had increased symptoms and is trying to get in to see the dentist in [facility] next week. 2 days ago he was seen in the emergency room, given some pain control and was supposed to go to the dentist this morning at 8: 15 but they won't see him because of past missed appointments. A NEWS CONTENT SPECIALIST search shows he's only had the 1 prescription for narcotics in the past year. Onset: Unknown/Unsure Severity: Mild Associated Symptoms: Reports: No Other Symptoms Right Lower Tooth/Teeth Pain Score (Numeric/FACES): 10 - Related Data Allergies Allergy/AdvReac Type Severity Reaction Status Date / Time No Known Allergies Allergy Verified 06/30/17 09:40 Home Meds: Home Meds Atenolol 100 mg PO DAILY 09/07/15 [History] Cholecalciferol (Vitamin D3) [D3-2000] 2,000 unit PO DAILY 09/07/15 [History] Divalproex Sodium [Depakote] 1,500 mg PO BEDTIME 09/07/15 [History] Glucosam/Chondroit/C/Manganese [Cosamin Ds Capsule] 1 each PO DAILY 09/07/15 [ History] Multivitamin [Multi-Vitamin Daily] 1 each PO DAILY 09/07/15 [History] Paliperidone Palmitate [Invega Sustenna] 234 mg IM Q30D 09/07/15 [History] Sertraline [Zoloft] 100 mg PO DAILY 09/20/15 [History] Desmopressin Acetate 2 tab PO BEDTIME 11/26/16 [History] Furosemide 40 mg PO BID #60 tablet 12/03/16 [Rx] Nicotine Polacrilex [Nicorelief] 2 mg CHEW Q2H PRN #0 gum 12/03/16 [Rx] ALPRAZolam [Alprazolam ER] 2 mg PO ASDIRECTED 02/19/17 [History] Cyclobenzaprine HCl [Cyclobenzaprine HCl] 10 mg PO ASDIRECTED 02/19/17 [History] Gabapentin [Neurontin] 300 mg PO TID 02/19/17 [History] Warfarin Sodium [Warfarin Sodium] 6.5 mg PO ASDIRECTED 02/19/17 [History] Warfarin Sodium [Warfarin Sodium] 7 mg PO ASDIRECTED 02/19/17 [History] Haloperidol [Haldol] 06/28/17 [History] Past Medical History HEENT History: Reports: Impaired Vision Cardiovascular History: Reports: Afib, Hypertension Gastrointestinal History: Reports: Chronic Constipation, GERD Genitourinary History: Reports: Other (See Below) Other Genitourinary History: Nocturnal enuresis, nephrogenic diabetes insipidus Musculoskeletal History: Reports: Gout, Osteoarthritis Neurological History: Reports: Concussion Psychiatric History: Reports: Anxiety, Bipolar, Depression, Panic Attack, Psych Hospitalization(s), Schizophrenia Endocrine/Metabolic History: Reports: Hypothyroidism, Obesity/BMI 30+ Dermatologic History: Reports: Other (See Below) Other Dermatologic History: rash in skin folds - Infectious Disease History Infectious Disease History: Reports: Chicken Pox Social & Family History - Family History Family Medical History: Unobtainable - Tobacco Use Smoking Status *Q: Unknown Ever Smoked Years of Tobacco use: 2 Packs/Tins Daily: 1 Used Tobacco, but Quit: Yes Month Tobacco Last Used: 12 Second Hand Smoke Exposure: Yes - Caffeine Use Caffeine Use: Reports: Coffee - Alcohol Use Days Per Week of Alcohol Use: 1 Number of Drinks Per Day: 6 Total Drinks Per Week: 6 - Recreational Drug Use Recreational Drug Use: No Drug Use in Last 12 Months: No ED ROS ENT - Review of Systems Review Of Systems: See Below Constitutional: Denies: Fever HEENT: Reports: Dental Pain Respiratory: Denies: Shortness of Breath Cardiovascular: Denies: Chest Pain GI/Abdominal: Denies: Abdominal Pain, Nausea, Vomiting Neurological: Denies: Headache Free Text/Narrative/Comment: Patient struggles with chronic morbid obesity ED EXAM, ENT - Physical Exam Exam: See Below Exam Limited By: No Limitations General Appearance: Alert, No Apparent Distress (Looks uncomfortable but not distressed) Mouth/Throat: Other (Patient does have scattered dental caries, and the posterior aspect of the second canine of the right mandible is missing. There is gingival disease but no significant redness or inflammation) Course - Vital Signs Last Recorded V/S: Last Vital Signs Temp 93.6 F L 06/30/17 09:39 Pulse 81 06/30/17 09:39 Resp 18 06/30/17 09:39 BP 155/104 H 06/30/17 09:39 Pulse Ox 94 L 06/30/17 09:39 - Re-Assessments/Exams Free Text/Narrative Re-Assessment/Exam: 06/30/17 10:17 Patient was placed on penicillin VK 500 mg 4 times a day for the next 10 days. He is unable to take anti-inflammatories because he is on Coumadin. I did give him 12 additional [place] with the understanding he is to take them sparingly and needs to get into the dentist as soon as possible. Take antibiotic until gone. Departure - Departure Time of Disposition: 10:27 Disposition: Home, Self-Care 01 Condition: Good Clinical Impression: Pain, dental - Discharge Information Instructions: Dental Abscess Referrals: Jasper Vasquez UTILITY ASSEMBLER [Primary Care Provider] - Forms: ED Department Discharge Care Plan Goals: Take antibiotic 4 times a day, add pain medication sparingly if needed. Call to make an appointment with the dentist as soon as possible, started making calls today.
== END 2017-06-30 10:28 | disposition home or self-care (01) ==
LOC: JP.ED 09:11
DX: K02.9 Dental caries, unspecified (principal); K08.89 Other specified disorders of teeth and supporting structures; K21.9 Gastro-esophageal reflux disease without esophagitis; I48.91 Unspecified atrial fibrillation; E03.9 Hypothyroidism, unspecified; E66.9 Obesity, unspecified; Z79.899 Other long term (current) drug therapy; Z79.01 Long term (current) use of anticoagulants; Z87.891 Personal history of nicotine dependence; Z77.22 Contact with and (suspected) exposure to environmental tobacco smoke (acute) (chronic)
CPT/HCPCS: 99283

== ENCOUNTER 2017-07-05 15:30 | Emergency (ER) | payer MEDICAID ==
[2017-07-05 17:32] VITALS: BP 138/81
--- NOTE | 2017-07-05 17:56 | EDM.PDOC ---
ED HPI GENERAL MEDICAL PROBLEM - General Chief Complaint: Neuro Symptoms/Deficits Stated Complaint: ON GOING TOOTH PAIN Time Seen by Provider: 07/05/17 17:40 Source of Information: Reports: Patient, Old Records, RN History Limitations: Reports: No Limitations - History of Present Illness INITIAL COMMENTS - FREE TEXT/NARRATIVE: 27 yo male here with dental pain. Was seen here at the beginning of the weak for the same and was given Anderson #12 and penicillin. He is still taking the PCN. No fever. Is out of his Anderson. Has an appt. with his dentist for Friday. Onset: Gradual Duration: Day(s):, Constant Location: Reports: Face Quality: Reports: Ache Severity: Moderate Improves with: Reports: Medication Worsens with: Reports: Cold Therapy Context: Reports: Other (dental neglect) Associated Symptoms: Denies: Fever/Chills Treatments ADMITTING OFFICER: Reports: Other (see below) (PCN) Tooth/Teeth Pain Score (Numeric/FACES): 9 - Related Data Allergies Allergy/AdvReac Type Severity Reaction Status Date / Time No Known Allergies Allergy Verified 07/05/17 17:43 Home Meds: Home Meds Atenolol 100 mg PO DAILY 09/07/15 [History] Cholecalciferol (Vitamin D3) [D3-2000] 2,000 unit PO DAILY 09/07/15 [History] Divalproex Sodium [Depakote] 1,500 mg PO BEDTIME 09/07/15 [History] Glucosam/Chondroit/C/Manganese [Cosamin Ds Capsule] 1 each PO DAILY 09/07/15 [ History] Multivitamin [Multi-Vitamin Daily] 1 each PO DAILY 09/07/15 [History] Paliperidone Palmitate [Invega Sustenna] 234 mg IM Q30D 09/07/15 [History] Sertraline [Zoloft] 100 mg PO DAILY 09/20/15 [History] Desmopressin Acetate 2 tab PO BEDTIME 11/26/16 [History] Furosemide 40 mg PO BID #60 tablet 12/03/16 [Rx] Nicotine Polacrilex [Nicorelief] 2 mg CHEW Q2H PRN #0 gum 12/03/16 [Rx] ALPRAZolam [Alprazolam ER] 2 mg PO ASDIRECTED 02/19/17 [History] Cyclobenzaprine HCl [Cyclobenzaprine HCl] mg PO ASDIRECTED 02/19/17 [History] Gabapentin [Neurontin] 300 mg PO TID 02/19/17 [History] Warfarin Sodium [Warfarin Sodium] 6.5 mg PO ASDIRECTED 02/19/17 [History] Warfarin Sodium [Warfarin Sodium] 7 mg PO ASDIRECTED 02/19/17 [History] Haloperidol [Haldol] 06/28/17 [History] Past Medical History HEENT History: Reports: Impaired Vision Cardiovascular History: Reports: Afib, Hypertension Gastrointestinal History: Reports: Chronic Constipation, GERD Genitourinary History: Reports: Other (See Below) Other Genitourinary History: Nocturnal enuresis, nephrogenic diabetes insipidus Musculoskeletal History: Reports: Gout, Osteoarthritis Neurological History: Reports: Concussion Psychiatric History: Reports: Anxiety, Bipolar, Depression, Panic Attack, Psych Hospitalization(s), Schizophrenia Endocrine/Metabolic History: Reports: Hypothyroidism, Obesity/BMI 30+ Dermatologic History: Reports: Other (See Below) Other Dermatologic History: rash in skin folds - Infectious Disease History Infectious Disease History: Reports: Chicken Pox Social & Family History - Family History Family Medical History: Unobtainable - Tobacco Use Smoking Status *Q: Heavy Tobacco Smoker Years of Tobacco use: 2 Packs/Tins Daily: 1 Used Tobacco, but Quit: Yes Month Tobacco Last Used: 12 Second Hand Smoke Exposure: Yes - Caffeine Use Caffeine Use: Reports: Coffee - Alcohol Use Days Per Week of Alcohol Use: 1 Number of Drinks Per Day: 6 Total Drinks Per Week: 6 - Recreational Drug Use Recreational Drug Use: No Drug Use in Last 12 Months: No ED ROS ENT - Review of Systems Review Of Systems: See Below Constitutional: Reports: No Symptoms HEENT: Reports: Dental Pain Respiratory: Reports: No Symptoms Cardiovascular: Reports: No Symptoms GI/Abdominal: Reports: No Symptoms : Reports: No Symptoms Musculoskeletal: Reports: No Symptoms ED EXAM, ENT - Physical Exam Exam: See Below Exam Limited By: No Limitations General Appearance: Alert, WD/WN, No Apparent Distress, Obese Eye Exam: Bilateral Eye: Normal Inspection Ears: Normal External Exam, Normal Canal, Hearing Grossly Normal Nose: Normal Inspection, Normal Mucousa, No Blood Mouth/Throat: Dental Pain, Dental Tenderness (caries, R lower mandibular premolar has the back half broken off and is tender with percussion.) Head: Atraumatic, Normocephalic Neck: Normal Inspection, Supple, Non-Tender Course - Vital Signs Last Recorded V/S: Last Vital Signs Temp 35.8 C 07/05/17 17:42 Pulse 78 07/05/17 17:42 Resp 16 07/05/17 17:42 BP 138/81 07/05/17 17:42 Pulse Ox 94 L 07/05/17 17:42 Departure - Departure Time of Disposition: 17:59 Disposition: Home, Self-Care 01 Condition: Good Clinical Impression: Pain due to dental caries - Discharge Information Referrals: Jasper Vasquez MAINTENANCE MECHANIC MILLWRIGHT [Primary Care Provider] - Forms: ED Department Discharge Additional Instructions: Continue your penicillin as directed. Add Anderson or acetaminophen for pain relief. Add ibuprofen for additional pain relief if needed. See your dentist on Friday as scheduled.
== END 2017-07-05 18:00 | disposition home or self-care (01) ==
LOC: JP.ED 15:30
DX: K02.9 Dental caries, unspecified (principal); I10 Essential (primary) hypertension; I48.91 Unspecified atrial fibrillation; K21.9 Gastro-esophageal reflux disease without esophagitis; F31.9 Bipolar disorder, unspecified; E03.9 Hypothyroidism, unspecified; F17.210 Nicotine dependence, cigarettes, uncomplicated; Z79.01 Long term (current) use of anticoagulants; Z79.899 Other long term (current) drug therapy
CPT/HCPCS: 99283

== ENCOUNTER 2017-07-11 04:36 | Emergency (ER) | payer MEDICAID ==
[2017-07-11 04:47] VITALS: BP 151/101
[2017-07-11] MEDS ORDERED: Ketorolac 60 MG/2 ML SDV IM ONE (05:23)
[2017-07-11] MEDS ORDERED: ALPRAZolam 0.25 MG Tab PO ONE (05:24)
--- NOTE | 2017-07-11 05:32 | EDM.PDOC ---
ED HPI GENERAL MEDICAL PROBLEM - General Chief Complaint: ENT Problem Stated Complaint: JAW PAIN / TOOTH PAIN Time Seen by Provider: 07/11/17 05:26 Source of Information: Reports: Patient History Limitations: Reports: No Limitations - History of Present Illness INITIAL COMMENTS - FREE TEXT/NARRATIVE: pt has a carious tooth in the rt lower gum line. he failed to see the dentist the last visit on Friday because he slept through it. He is on penicillin which he feels has helped the infection some. He has another dental appt on this coming Friday. Onset: Gradual Duration: Hour(s): Location: Reports: Face, Other (pt hs swelling in the rt facial area. ) Associated Symptoms: Reports: Other (painful tooth in the rt lower jaw. ) Right Face Pain Score (Numeric/FACES): 5 - Related Data Allergies Allergy/AdvReac Type Severity Reaction Status Date / Time No Known Allergies Allergy Verified 07/11/17 04:45 Home Meds: Home Meds Atenolol 100 mg PO DAILY 09/07/15 [History] Cholecalciferol (Vitamin D3) [D3-2000] 2,000 unit PO DAILY 09/07/15 [History] Divalproex Sodium [Depakote] 1,500 mg PO BEDTIME 09/07/15 [History] Glucosam/Chondroit/C/Manganese [Cosamin Ds Capsule] 2 each PO DAILY 09/07/15 [ History] Sertraline [Zoloft] 100 mg PO DAILY 09/20/15 [History] Desmopressin Acetate 2 tab PO BEDTIME 11/26/16 [History] Nicotine Polacrilex [Nicorelief] 2 mg CHEW Q2H PRN #0 gum 12/03/16 [Rx] ALPRAZolam [Alprazolam ER] 2 mg PO ASDIRECTED 02/19/17 [History] Cyclobenzaprine HCl [Cyclobenzaprine HCl] 10 mg PO ASDIRECTED 02/19/17 [History] Gabapentin [Neurontin] 300 mg PO TID 02/19/17 [History] Warfarin Sodium [Warfarin Sodium] 6.5 mg PO ASDIRECTED 02/19/17 [History] Warfarin Sodium [Warfarin Sodium] 7.5 mg PO ASDIRECTED 02/19/17 [History] Haloperidol [Haldol] 0.5 mg PO TID PRN 06/28/17 [History] Furosemide 40 mg PO TID 07/11/17 [History] Hydrocodone/Acetaminophen [Vicodin 5-300 mg Tablet] 2 each PO Q6H PRN 07/11/17 [ History] Zolpidem Tartrate [Ambien] 10 mg PO BEDTIME 07/11/17 [History] Past Medical History HEENT History: Reports: Impaired Vision Cardiovascular History: Reports: Afib, Hypertension Respiratory History: Reports: Sleep Apnea, Other (See Below) Other Respiratory History: bipap Gastrointestinal History: Reports: Chronic Constipation, GERD Genitourinary History: Reports: Other (See Below) Other Genitourinary History: Nocturnal enuresis, nephrogenic diabetes insipidus Musculoskeletal History: Reports: Gout, Osteoarthritis Neurological History: Reports: Concussion Psychiatric History: Reports: Anxiety, Bipolar, Depression, Panic Attack, Psych Hospitalization(s), Schizophrenia Endocrine/Metabolic History: Reports: Hypothyroidism, Obesity/BMI 30+ Dermatologic History: Reports: Other (See Below) Other Dermatologic History: rash in skin folds - Infectious Disease History Infectious Disease History: Reports: Chicken Pox, MRSA Social & Family History - Family History Family Medical History: Unobtainable - Tobacco Use Smoking Status *Q: Current Every Day Smoker Years of Tobacco use: 2 Packs/Tins Daily: 0.7 Used Tobacco, but Quit: Yes Month/Year Tobacco Last Used: 12 Second Hand Smoke Exposure: Yes - Caffeine Use Caffeine Use: Reports: Soda - Alcohol Use Days Per Week of Alcohol Use: 1 Number of Drinks Per Day: 6 Total Drinks Per Week: 6 - Recreational Drug Use Recreational Drug Use: No Drug Use in Last 12 Months: No ED ROS ENT - Review of Systems Review Of Systems: See Below Constitutional: Reports: No Symptoms HEENT: Reports: Dental Pain, Other (pt has a carious tooth in the rt lower gum line. ) Respiratory: Reports: No Symptoms Cardiovascular: Reports: No Symptoms Endocrine: Reports: No Symptoms GI/Abdominal: Reports: No Symptoms : Reports: No Symptoms Musculoskeletal: Reports: No Symptoms Skin: Reports: No Symptoms ED EXAM, ENT - Physical Exam Exam: See Below Text/Narrative:: pt arrived with pain in rt lower gum line. He did not get his xanax extended release refill and is hoping to get that tomorrow. Exam Limited By: No Limitations General Appearance: Alert, Mild Distress Ears: Normal TMs Nose: Normal Inspection Mouth/Throat: Other (pt has a carious tooth in the rt lower gum line. ) Head: Atraumatic Neck: Normal Inspection, Lymphadenopathy (R) Respiratory/Chest: No Respiratory Distress Cardiovascular: Regular Rate, Rhythm Course - Vital Signs Last Recorded V/S: Last Vital Signs Temp 35.6 C 07/11/17 04:46 Pulse 97 07/11/17 04:46 Resp 22 H 07/11/17 04:46 BP 151/101 H 07/11/17 04:46 Pulse Ox 94 L 07/11/17 04:46 - Orders/Labs/Meds Orders: Active Orders 24 hr Category Date Time Status INR,PT,PROTHROMBIN TIME [COAG] Stat Lab 07/11/17 05:30 Received Labs: Laboratory Tests 07/11/17 07/11/17 Range/Units 05:30 05:30 WBC 11.6 H (4.5-11.0) K/uL RBC 4.99 (4.30-5.90) M/uL Hgb 15.2 H D (12.0-15.0) g/dL Hct 43.8 (40.0-54.0) % MCV 88 (80-98) fL MCH 31 (27-31) pg MCHC 35 (32-36) % Plt Count 226 (150-400) K/uL Neut % (Auto) 75 H (36-66) % Lymph % (Auto) 15 L (24-44) % [place] % (Auto) 8 H (2-6) % Eos % (Auto) 1 L (2-4) % Baso % (Auto) 0 (0-1) % Sodium 139 L (140-148) mmol/L Potassium 3.7 (3.6-5.2) mmol/L Chloride 100 (100-108) mmol/L Carbon Dioxide 30 D (21-32) mmol/L Anion Gap 12.7 (5.0-14.0) mmol/L BUN 10 D (7-18) mg/dL Creatinine 0.8 (0.8-1.3) mg/dL Est Cr Clr Drug Dosing 138.70 mL/min Estimated GFR (MDRD) > 60 (>60) Glucose 107 H (74-106) mg/dL Calcium 8.9 (8.5-10.1) mg/dL Meds: Medications Discontinued Medications Generic Name Dose Route Start Last Admin Trade Name Freq PRN Reason Stop Dose Admin Hydrocodone Bitart/Acetaminophen 1 tab 07/11/17 05:42 War 325-5 Mg PO 07/11/17 05:43 ONETIME ONE Alprazolam 0.5 mg 07/11/17 05:24 Xanax PO 07/11/17 05:25 ONETIME ONE Ketorolac Tromethamine 60 mg 07/11/17 05:23 Toradol IM 07/11/17 05:24 ONETIME ONE - Re-Assessments/Exams Free Text/Narrative Re-Assessment/Exam: 07/11/17 05:32 pt was given xanax .5 while here. He does plan to keep his dental appt on Friday. This is at 2 thirty. 07/11/17 05:50 pt was found to have normal lab work. Departure - Departure Time of Disposition: 05:50 Disposition: Home, Self-Care 01 Condition: Fair Clinical Impression: Anxiety, Tooth pain - Discharge Information Referrals: Jasper Vasquez CONSTRUCTION ENGINEER [Primary Care Provider] - Forms: ED Department Discharge Care Plan Goals: keep dental appt Friday at 2 thirty, xanax 2mg er-- 1 tab daily #5, norco 5/325 1 tab q6h prn for pain #5 continue penicillin - My Orders Last 24 Hours: My Active Orders 07/11/17 05:30 INR,PT,PROTHROMBIN TIME [COAG] Stat - Assessment/Plan Last 24 Hours: My Active Orders 07/11/17 05:30 INR,PT,PROTHROMBIN TIME [COAG] Stat
[2017-07-11] MEDS ORDERED: Acetaminophen/HYDROcodone 325-5 MG Tab PO ONE (05:42)
== END 2017-07-11 06:02 | disposition home or self-care (01) ==
LOC: JP.ED 04:36
DX: K02.9 Dental caries, unspecified (principal); F41.9 Anxiety disorder, unspecified; I10 Essential (primary) hypertension; K21.9 Gastro-esophageal reflux disease without esophagitis; F17.210 Nicotine dependence, cigarettes, uncomplicated; E66.9 Obesity, unspecified; Z79.899 Other long term (current) drug therapy
CPT/HCPCS: 36415; 80048; 85025; 85610; 96372; 99283; A9270

== ENCOUNTER 2017-07-15 18:33 | Emergency (ER) | payer MEDICAID ==
[2017-07-15 19:31] VITALS: BP 145/91
--- NOTE | 2017-07-15 19:54 | EDM.PDOC ---
ED HPI GENERAL MEDICAL PROBLEM - General Chief Complaint: ENT Problem Stated Complaint: TOOTH PAIN Time Seen by Provider: 07/15/17 19:45 Source of Information: Reports: Patient History Limitations: Reports: No Limitations - History of Present Illness INITIAL COMMENTS - FREE TEXT/NARRATIVE: 27-year-old male was at the dentist yesterday, had his right lower canine drilled and a temporary filling placed. He needs to arrange a root canal at a dentist in [place]. He's having excessive pain and was unable to get any pain medication from the dentist. He is taking 800 mg of ibuprofen every 6 hours. Location: Reports: Face Quality: Reports: Ache, Sharp Severity: Moderate Worsens with: Reports: Eating Associated Symptoms: Reports: Headaches. Denies: Fever/Chills, Nausea/Vomiting tooth Pain Score (Numeric/FACES): 5 - Related Data Allergies Allergy/AdvReac Type Severity Reaction Status Date / Time No Known Allergies Allergy Verified 07/11/17 04:45 Home Meds: Home Meds Atenolol 100 mg PO DAILY 09/07/15 [History] Cholecalciferol (Vitamin D3) [D3-2000] 2,000 unit PO DAILY 09/07/15 [History] Divalproex Sodium [Depakote] 1,500 mg PO BEDTIME 09/07/15 [History] Glucosam/Chondroit/C/Manganese [Cosamin Ds Capsule] 2 each PO DAILY 09/07/15 [ History] Sertraline [Zoloft] 100 mg PO DAILY 09/20/15 [History] Desmopressin Acetate 2 tab PO BEDTIME 11/26/16 [History] Nicotine Polacrilex [Nicorelief] 2 mg CHEW Q2H PRN #0 gum 12/03/16 [Rx] ALPRAZolam [Alprazolam ER] 2 mg PO ASDIRECTED 02/19/17 [History] Cyclobenzaprine HCl [Cyclobenzaprine HCl] 10 mg PO ASDIRECTED 02/19/17 [History] Gabapentin [Neurontin] 300 mg PO TID 02/19/17 [History] Warfarin Sodium [Warfarin Sodium] 6.5 mg PO ASDIRECTED 02/19/17 [History] Warfarin Sodium [Warfarin Sodium] 7.5 mg PO ASDIRECTED 02/19/17 [History] Haloperidol [Haldol] 0.5 mg PO TID PRN 06/28/17 [History] Furosemide 40 mg PO TID 07/11/17 [History] Hydrocodone/Acetaminophen [Vicodin 5-300 mg Tablet] 2 each PO Q6H PRN 07/11/17 [ History] Zolpidem Tartrate [Ambien] 10 mg PO BEDTIME 07/11/17 [History] Past Medical History HEENT History: Reports: Impaired Vision Cardiovascular History: Reports: Afib, Hypertension Respiratory History: Reports: Sleep Apnea, Other (See Below) Other Respiratory History: bipap Gastrointestinal History: Reports: Chronic Constipation, GERD Genitourinary History: Reports: Other (See Below) Other Genitourinary History: Nocturnal enuresis, nephrogenic diabetes insipidus Musculoskeletal History: Reports: Gout, Osteoarthritis Neurological History: Reports: Concussion Psychiatric History: Reports: Anxiety, Bipolar, Depression, Panic Attack, Psych Hospitalization(s), Schizophrenia Endocrine/Metabolic History: Reports: Hypothyroidism, Obesity/BMI 30+ Dermatologic History: Reports: Other (See Below) Other Dermatologic History: rash in skin folds - Infectious Disease History Infectious Disease History: Reports: Chicken Pox, MRSA Social & Family History - Family History Family Medical History: Unobtainable - Tobacco Use Smoking Status *Q: Current Every Day Smoker Years of Tobacco use: 10 Packs/Tins Daily: 0.7 Used Tobacco, but Quit: Yes Month/Year Tobacco Last Used: 12 Second Hand Smoke Exposure: Yes - Caffeine Use Caffeine Use: Reports: Soda - Alcohol Use Days Per Week of Alcohol Use: 1 Number of Drinks Per Day: 6 Total Drinks Per Week: 6 - Recreational Drug Use Recreational Drug Use: No Drug Use in Last 12 Months: No ED ROS ENT - Review of Systems Review Of Systems: See Below Constitutional: Denies: Fever, Chills HEENT: Reports: Other (The the canine on the right mandible does have fresh dental work evidence with a temporary filling. There is some erythema and it's tender to palpation and percussion) Respiratory: Reports: No Symptoms ED EXAM, ENT - Physical Exam Exam: See Below Exam Limited By: No Limitations General Appearance: Alert, Mild Distress (Patient does look uncomfortable) Mouth/Throat: Other (The first canine on the right mandible has recent dental work with a temporary filling. There is surrounding erythema and it is very tender to touch and palpation or percussion) Course - Vital Signs Last Recorded V/S: Last Vital Signs Temp 96.5 F 07/15/17 19:43 Pulse 84 07/15/17 19:43 Resp 16 07/15/17 19:43 BP 145/91 H 07/15/17 19:43 Pulse Ox 92 L 07/15/17 19:43 - Re-Assessments/Exams Free Text/Narrative Re-Assessment/Exam: 07/16/17 05:56 Patient was given 20 hydrocodone to take along with the 800 mg ibuprofens and this is expected to last him until he can get this finished. He needs to call [place] tomorrow to get the appointment arranged. Departure - Departure Time of Disposition: 20:08 Disposition: Home, Self-Care 01 Condition: Good Clinical Impression: Dental caries - Discharge Information Instructions: Dental Caries, Pediatric Referrals: Jasper Vasquez PLAYGROUND MONITOR [Primary Care Provider] - Forms: ED Department Discharge Care Plan Goals: Continue with ibuprofen and use hydrocodone sparingly if needed. See the dentist in [place] as soon as possible.
== END 2017-07-15 20:08 | disposition home or self-care (01) ==
LOC: JP.ED 18:33
DX: K02.9 Dental caries, unspecified (principal); I10 Essential (primary) hypertension; I48.91 Unspecified atrial fibrillation; E03.9 Hypothyroidism, unspecified; F17.210 Nicotine dependence, cigarettes, uncomplicated; F41.9 Anxiety disorder, unspecified; F31.9 Bipolar disorder, unspecified; Z79.01 Long term (current) use of anticoagulants; Z79.899 Other long term (current) drug therapy
CPT/HCPCS: 99283

== ENCOUNTER 2017-08-01 03:37 | Emergency (ER) | payer MEDICAID ==
[2017-08-01 03:56] VITALS: BP 138/85
--- NOTE | 2017-08-01 04:48 | EDM.PDOC ---
ED HPI GENERAL MEDICAL PROBLEM - General Chief Complaint: General Stated Complaint: MEDICAL VIA [facility] Time Seen by Provider: 08/01/17 04:10 Source of Information: Reports: Patient, EMS History Limitations: Reports: No Limitations - History of Present Illness INITIAL COMMENTS - FREE TEXT/NARRATIVE: 27-year-old male with chronic anxiety came in by ambulance because he felt anxious, short of breath, had chest tightness, and thought somebody put methamphetamine in his tobacco. His vitals were stable and he calmed down fairly rapidly once he got here. No fevers or chills, no cough. The dental pain we've been seeing him for recently has resolved, he did not go to the dentist because he didn't fill out the paperwork and the pain went away. Onset: Unknown/Unsure Severity: Mild Associated Symptoms: Reports: Chest Pain (Mild pressure, tightness). Denies: Confusion - Related Data Allergies Allergy/AdvReac Type Severity Reaction Status Date / Time No Known Allergies Allergy Verified 08/01/17 03:56 Home Meds: Home Meds Atenolol 100 mg PO DAILY 09/07/15 [History] Cholecalciferol (Vitamin D3) [D3-2000] 2,000 unit PO DAILY 09/07/15 [History] Divalproex Sodium [Depakote] 1,500 mg PO BEDTIME 09/07/15 [History] Glucosam/Chondroit/C/Manganese [Cosamin Ds Capsule] 2 each PO DAILY 09/07/15 [ History] Sertraline [Zoloft] 100 mg PO DAILY 09/20/15 [History] Desmopressin Acetate 0.4 mg PO BEDTIME 11/26/16 [History] Nicotine Polacrilex [Nicorelief] 2 mg CHEW Q2H PRN #0 gum 12/03/16 [Rx] ALPRAZolam [Alprazolam ER] 2 mg PO ASDIRECTED 02/19/17 [History] Gabapentin [Neurontin] 300 mg PO TID 02/19/17 [History] Warfarin Sodium 6.5 mg PO ASDIRECTED 02/19/17 [History] Warfarin Sodium 7.5 mg PO ASDIRECTED 02/19/17 [History] Haloperidol [Haldol] 0.5 mg PO TID PRN 06/28/17 [History] Furosemide 40 mg PO BID 07/11/17 [History] Acetaminophen 325 mg PO ASDIRECTED PRN 08/01/17 [History] Albuterol Sulfate 2.5 mg IH ASDIRECTED PRN 08/01/17 [History] Calcium Carbonate/Vitamin D3 [Calcium 600-Vit D3 800 Tablet] 1 tab PO BID [History] Omeprazole 20 mg PO DAILY 08/01/17 [History] Paliperidone Palmitate [Invega Sustenna] 234 mg IM ASDIRECTED 08/01/17 [History] Prasterone (DHEA)/Calcium Carb [DHEA] 1 tab PO DAILY 08/01/17 [History] hydrOXYzine HCl [Atarax] 25 mg PO Q6H 08/01/17 [History] Past Medical History HEENT History: Reports: Impaired Vision Cardiovascular History: Reports: Afib, Hypertension Respiratory History: Reports: Sleep Apnea, Other (See Below) Other Respiratory History: bipap Gastrointestinal History: Reports: Chronic Constipation, GERD Genitourinary History: Reports: Other (See Below) Other Genitourinary History: Nocturnal enuresis, nephrogenic diabetes insipidus Musculoskeletal History: Reports: Gout, Osteoarthritis Neurological History: Reports: Concussion Psychiatric History: Reports: Anxiety, Bipolar, Depression, Panic Attack, Psych Hospitalization(s), Schizophrenia Endocrine/Metabolic History: Reports: Hypothyroidism, Obesity/BMI 30+ Dermatologic History: Reports: Other (See Below) Other Dermatologic History: rash in skin folds - Infectious Disease History Infectious Disease History: Reports: Chicken Pox, MRSA Social & Family History - Family History Family Medical History: Unobtainable - Tobacco Use Smoking Status *Q: Current Every Day Smoker Years of Tobacco use: 2 Packs/Tins Daily: 1 Used Tobacco, but Quit: Yes Month/Year Tobacco Last Used: 12 Second Hand Smoke Exposure: Yes - Caffeine Use Caffeine Use: Reports: Soda - Alcohol Use Days Per Week of Alcohol Use: 1 Number of Drinks Per Day: 6 Total Drinks Per Week: 6 - Recreational Drug Use Recreational Drug Use: Yes Drug Use in Last 12 Months: No Recreational Drug Type: Reports: Marijuana/Hashish ED ROS GENERAL - Review of Systems Review Of Systems: See Below Constitutional: Denies: Fever, Chills Respiratory: Reports: Shortness of Breath Cardiovascular: Reports: Chest Pain GI/Abdominal: Denies: Nausea, Vomiting Skin: Reports: No Symptoms Neurological: Denies: Headache Psychiatric: Reports: Anxiety ED EXAM, GENERAL - Physical Exam Exam: See Below Exam Limited By: No Limitations General Appearance: Alert, No Apparent Distress, Other (Anxiety seems to have resolved, he feels much better) Respiratory/Chest: No Respiratory Distress, Lungs Clear Cardiovascular: Regular Rate, Rhythm. No: Extra Beats GI/Abdominal: Non-Tender, Other (Morbidly obese) Extremities: Pedal Edema Neurological: Alert, Oriented Psychiatric: Anxious Skin Exam: Warm, Dry, Other (A few excoriations on the forearms) Course - Vital Signs Last Recorded V/S: Last Vital Signs Temp 96.1 F 08/01/17 03:50 Pulse 72 08/01/17 03:50 Resp 20 08/01/17 03:50 BP 138/85 08/01/17 03:50 Pulse Ox 96 08/01/17 03:50 - Orders/Labs/Meds Orders: Active Orders 24 hr Category Date Time Status DRUG SCREEN, URINE [URCHEM] Stat Lab 08/01/17 04:21 Ordered Labs: Laboratory Tests 08/01/17 Range/Units 04:21 Urine Opiates Screen Negative (NEGATIVE) Ur Oxycodone Screen Negative (NEGATIVE) Urine Methadone Screen Negative (NEGATIVE) Ur Propoxyphene Screen Negative (NEGATIVE) Ur Barbiturates Screen Negative (NEGATIVE) Ur Tricyclics Screen Negative (NEGATIVE) Ur Phencyclidine Scrn Negative (NEGATIVE) Ur Amphetamine Screen Negative (NEGATIVE) U Methamphetamines Scrn Negative (NEGATIVE) Urine MDMA Screen Negative (NEGATIVE) U Benzodiazepines Scrn Positive H (NEGATIVE) U Cocaine Metab Screen Negative (NEGATIVE) U Marijuana (THC) Screen Negative (NEGATIVE) - Re-Assessments/Exams Free Text/Narrative Re-Assessment/Exam: 08/01/17 04:47 A urine drug screen was obtained. 08/01/17 04:52 Patient's drug screen only showed benzodiazepines for which he is prescribed. He was reassured that he was having anxiety, he is now back to baseline. He was discharged and encouraged to continue his regular medications. Departure - Departure Time of Disposition: 05:07 Disposition: Home, Self-Care 01 Condition: Good Clinical Impression: Anxiety - Discharge Information Instructions: Panic Attacks, [id number] Referrals: PCP,None [Primary Care Provider] - Forms: ED Department Discharge Care Plan Goals: Resume your regular medications and continue staying active to avoid weight gain. - My Orders Last 24 Hours: My Active Orders 08/01/17 04:21 DRUG SCREEN, URINE [URCHEM] Stat - Assessment/Plan Last 24 Hours: My Active Orders 08/01/17 04:21 DRUG SCREEN, URINE [URCHEM] Stat
== END 2017-08-01 05:07 | disposition home or self-care (01) ==
LOC: JP.ED 03:37
DX: F41.9 Anxiety disorder, unspecified (principal); K21.9 Gastro-esophageal reflux disease without esophagitis; F17.210 Nicotine dependence, cigarettes, uncomplicated; Z79.899 Other long term (current) drug therapy
CPT/HCPCS: 80305; 99284-25

== ENCOUNTER 2017-08-19 04:13 | Emergency (ER) | payer MEDICAID ==
[2017-08-19 04:47] VITALS: BP 135/81
--- NOTE | 2017-08-19 05:09 | EDM.PDOC ---
ED HPI GENERAL MEDICAL PROBLEM - General Chief Complaint: Lower Extremity Injury/Pain Stated Complaint: FELL HURT RIGHT KNEE Time Seen by Provider: 08/19/17 05:03 Source of Information: Reports: Patient, RN Notes Reviewed History Limitations: Reports: No Limitations - History of Present Illness INITIAL COMMENTS - FREE TEXT/NARRATIVE: 27-year-old gentleman presents emergency department day complaint of right knee pain, he states he tripped and fell in a hole landing on his right knee he is now experiencing pain, difficult for him to ambulate. I did offer Toradol for pain control while we await an x-ray he declined stated would not help his pain he needed something stronger like hydrocodone, I informed him I felt hydrocodone was in appropriate at this point in time and recommended evaluation by x-ray. Right Knee Pain Score (Numeric/FACES): 8 - Related Data Allergies Allergy/AdvReac Type Severity Reaction Status Date / Time No Known Allergies Allergy Verified 08/01/17 03:56 Home Meds: Home Meds Atenolol 100 mg PO DAILY 09/07/15 [History] Cholecalciferol (Vitamin D3) [D3-2000] 2,000 unit PO DAILY 09/07/15 [History] Divalproex Sodium [Depakote] 1,500 mg PO BEDTIME 09/07/15 [History] Glucosam/Chondroit/C/Manganese [Cosamin Ds Capsule] 2 each PO DAILY 09/07/15 [ History] Sertraline [Zoloft] 100 mg PO DAILY 09/20/15 [History] Desmopressin Acetate 0.4 mg PO BEDTIME 11/26/16 [History] Nicotine Polacrilex [Nicorelief] 2 mg CHEW Q2H PRN #0 gum 12/03/16 [Rx] ALPRAZolam [Alprazolam ER] 2 mg PO ASDIRECTED 02/19/17 [History] Gabapentin [Neurontin] 300 mg PO TID 02/19/17 [History] Warfarin Sodium 6.5 mg PO ASDIRECTED 02/19/17 [History] Warfarin Sodium 7.5 mg PO ASDIRECTED 02/19/17 [History] Haloperidol [Haldol] 0.5 mg PO TID PRN 06/28/17 [History] Furosemide 40 mg PO BID 07/11/17 [History] Acetaminophen 325 mg PO ASDIRECTED PRN 08/01/17 [History] Albuterol Sulfate 2.5 mg IH ASDIRECTED PRN 08/01/17 [History] Calcium Carbonate/Vitamin D3 [Calcium 600-Vit D3 800 Tablet] 1 tab PO BID [History] Omeprazole 20 mg PO DAILY 08/01/17 [History] Paliperidone Palmitate [Invega Sustenna] 234 mg IM ASDIRECTED 08/01/17 [History] Prasterone (DHEA)/Calcium Carb [DHEA] 1 tab PO DAILY 08/01/17 [History] hydrOXYzine HCl [Atarax] 25 mg PO Q6H 08/01/17 [History] Past Medical History HEENT History: Reports: Impaired Vision Cardiovascular History: Reports: Afib, Hypertension Respiratory History: Reports: Sleep Apnea, Other (See Below) Other Respiratory History: bipap Gastrointestinal History: Reports: Chronic Constipation, GERD Genitourinary History: Reports: Other (See Below) Other Genitourinary History: Nocturnal enuresis, nephrogenic diabetes insipidus Musculoskeletal History: Reports: Gout, Osteoarthritis Neurological History: Reports: Concussion Psychiatric History: Reports: Anxiety, Bipolar, Depression, Panic Attack, Psych Hospitalization(s), Schizophrenia Endocrine/Metabolic History: Reports: Hypothyroidism, Obesity/BMI 30+ Dermatologic History: Reports: Other (See Below) Other Dermatologic History: rash in skin folds - Infectious Disease History Infectious Disease History: Reports: Chicken Pox, MRSA Social & Family History - Family History Family Medical History: Unobtainable - Tobacco Use Smoking Status *Q: Current Every Day Smoker Years of Tobacco use: 10 Packs/Tins Daily: 0.5 Used Tobacco, but Quit: Yes Month/Year Tobacco Last Used: 12 Second Hand Smoke Exposure: Yes - Caffeine Use Caffeine Use: Reports: Energy Drinks, Soda - Alcohol Use Days Per Week of Alcohol Use: 1 Number of Drinks Per Day: 6 Total Drinks Per Week: 6 - Recreational Drug Use Recreational Drug Use: No Drug Use in Last 12 Months: No Recreational Drug Type: Reports: Marijuana/Hashish Review of Systems - Review of Systems Review Of Systems: See Below Constitutional: Reports: No Symptoms Musculoskeletal: Reports: Joint Pain (Knee pain right) Skin: Reports: Wound Neurological: Reports: No Symptoms ED EXAM, GENERAL - Physical Exam Exam: See Below Free Text/Narrative:: Examination the right knee I do not appreciate an abrasion over the kneecap he is tender to palpation over the kneecap there is no tenderness along the joint line I cannot perform the maneuver secondary to size Exam Limited By: No Limitations General Appearance: Alert, WD/WN, No Apparent Distress Respiratory/Chest: No Respiratory Distress Course - Vital Signs Last Recorded V/S: Last Vital Signs Temp 97.3 F 08/19/17 04:42 Pulse 89 08/19/17 04:42 Resp 15 08/19/17 04:42 BP 135/81 08/19/17 04:42 Pulse Ox 97 08/19/17 04:42 - Orders/Labs/Meds Orders: Active Orders 24 hr Category Date Time Status Knee 3V Rt [CR] Stat Exams 08/19/17 05:05 Taken Labs: Laboratory Tests 08/19/17 Range/Units 06:00 PT 20.1 H (9.5-12.0) sec INR 1.83 H (0.80-1.20) Meds: Medications Discontinued Medications Generic Name Dose Route Start Last Admin Trade Name Freq PRN Reason Stop Dose Admin Prochlorperazine Edisylate 5 mg 08/19/17 06:20 Compazine IVPUSH 08/19/17 06:21 ONETIME ONE Departure - Departure Time of Disposition: 06:25 Disposition: Home, Self-Care 01 Condition: Fair Clinical Impression: Contusion of right knee Qualifiers: Encounter type: initial encounter Qualified Code(s): S80.01XA - Contusion of right knee, initial encounter - Discharge Information Referrals: PCP,None [Primary Care Provider] - Forms: ED Department Discharge Additional Instructions: Recommend follow-up with your primary care for further evaluation if not better in the next 3-4 days - My Orders Last 24 Hours: My Active Orders 08/19/17 05:05 Knee 3V Rt [CR] Stat - Assessment/Plan Last 24 Hours: My Active Orders 08/19/17 05:05 Knee 3V Rt [CR] Stat Plan: Assessment Acuity = acute Site and laterality = right knee contusion Etiology = secondary to fall Manifestations = none Location of injury = Home Lab values = x-ray displays no fracture per radiology INR 1.83 Plan I offered him nonsteroidal anti-inflammatories of which she states he cannot take because of his Coumadin feels he only can take hydrocodone for his pain, he is in such severe pain he cannot ambulate I reminded him that I will not provide narcotics without fracture., He states he cannot take Tylenol because it does not provide pain relief. Patient did cause a disturbance in the emergency department was verbally threatening along enforcement was called by the time law enforcement arrived and talked with him his pain has resolved This note was dictated using [employer] voice recognition software please call with any questions on syntax or alfonso.
[2017-08-19] MEDS ORDERED: Prochlorperazine 10 MG/2 ML SDV IVPUSH ONE (06:20)
== END 2017-08-19 06:51 | disposition home or self-care (01) ==
LOC: JP.ED 04:13
DX: S80.01XA Contusion of right knee, initial encounter (principal); I10 Essential (primary) hypertension; I48.91 Unspecified atrial fibrillation; F41.9 Anxiety disorder, unspecified; F32.9 Major depressive disorder, single episode, unspecified; E66.9 Obesity, unspecified; Z87.891 Personal history of nicotine dependence; Z79.899 Other long term (current) drug therapy; W01.0XXA Fall on same level from slipping, tripping and stumbling without subsequent striking against object, initial encounter
CPT/HCPCS: 36415; 73562-RT; 85610; 96374; 99284-25

== ENCOUNTER 2017-08-21 04:36 | Emergency (ER) | payer MEDICAID ==
[2017-08-21 04:55] VITALS: BP 166/92
[2017-08-21] MEDS ORDERED: Ketorolac 60 MG/2 ML SDV IM ONE (05:22)
[2017-08-21] MEDS ORDERED: ALPRAZolam 0.25 MG Tab PO ONE (05:24)
--- NOTE | 2017-08-21 05:28 | EDM.PDOC ---
ED HPI GENERAL MEDICAL PROBLEM - General Chief Complaint: General Stated Complaint: FELL Time Seen by Provider: 08/21/17 05:08 Source of Information: Reports: Patient, RN Notes Reviewed History Limitations: Reports: No Limitations - History of Present Illness INITIAL COMMENTS - FREE TEXT/NARRATIVE: 27-year-old gentleman presents to the emergency department day complaint of chest pain, he states he fell earlier this evening while dealing with his dog, this is the same complaint as last evening when I evaluated him for right knee pain law enforcement worse called at that time because of his hostility after denial of narcotics. He states he has chest pain axillary area bilaterally secondary to a fall. Also states he has not taken his Xanax for a couple days and is hyperventilating and feels like he cannot catch his breath bilateral axcillary Pain Score (Numeric/FACES): 4 - Related Data Allergies Allergy/AdvReac Type Severity Reaction Status Date / Time No Known Allergies Allergy Verified 08/21/17 05:08 Home Meds: Home Meds Atenolol 100 mg PO DAILY 09/07/15 [History] Cholecalciferol (Vitamin D3) [D3-2000] 2,000 unit PO DAILY 09/07/15 [History] Divalproex Sodium [Depakote] 1,500 mg PO BEDTIME 09/07/15 [History] Glucosam/Chondroit/C/Manganese [Cosamin Ds Capsule] 2 each PO DAILY 09/07/15 [ History] Sertraline [Zoloft] 100 mg PO DAILY 09/20/15 [History] Desmopressin Acetate 0.4 mg PO BEDTIME 11/26/16 [History] Nicotine Polacrilex [Nicorelief] 2 mg CHEW Q2H PRN #0 gum 12/03/16 [Rx] ALPRAZolam [Alprazolam ER] 2 mg PO ASDIRECTED 02/19/17 [History] Gabapentin [Neurontin] 300 mg PO TID 02/19/17 [History] Warfarin Sodium 6.5 mg PO ASDIRECTED 02/19/17 [History] Warfarin Sodium 7.5 mg PO ASDIRECTED 02/19/17 [History] Haloperidol [Haldol] 0.5 mg PO TID PRN 06/28/17 [History] Furosemide 40 mg PO BID 07/11/17 [History] Acetaminophen 325 mg PO ASDIRECTED PRN 08/01/17 [History] Albuterol Sulfate 2.5 mg IH ASDIRECTED PRN 08/01/17 [History] Calcium Carbonate/Vitamin D3 [Calcium 600-Vit D3 800 Tablet] 1 tab PO BID [History] Omeprazole 20 mg PO DAILY 08/01/17 [History] Paliperidone Palmitate [Invega Sustenna] 234 mg IM ASDIRECTED 08/01/17 [History] Prasterone (DHEA)/Calcium Carb [DHEA] 1 tab PO DAILY 08/01/17 [History] hydrOXYzine HCl [Atarax] 25 mg PO Q6H 08/01/17 [History] Past Medical History HEENT History: Reports: Impaired Vision Cardiovascular History: Reports: Afib, Hypertension Respiratory History: Reports: Sleep Apnea, Other (See Below) Other Respiratory History: bipap Gastrointestinal History: Reports: Chronic Constipation, GERD Genitourinary History: Reports: Other (See Below) Other Genitourinary History: Nocturnal enuresis, nephrogenic diabetes insipidus Musculoskeletal History: Reports: Gout, Osteoarthritis Neurological History: Reports: Concussion Psychiatric History: Reports: Anxiety, Bipolar, Depression, Panic Attack, Psych Hospitalization(s), Schizophrenia Endocrine/Metabolic History: Reports: Hypothyroidism, Obesity/BMI 30+ Dermatologic History: Reports: Other (See Below) Other Dermatologic History: rash in skin folds - Infectious Disease History Infectious Disease History: Reports: Chicken Pox, MRSA Social & Family History - Family History Family Medical History: Unobtainable - Tobacco Use Smoking Status *Q: Current Status Unknown Years of Tobacco use: 10 Packs/Tins Daily: 0.5 Used Tobacco, but Quit: Yes Month/Year Tobacco Last Used: 12 Second Hand Smoke Exposure: Yes - Caffeine Use Caffeine Use: Reports: Energy Drinks - Alcohol Use Days Per Week of Alcohol Use: 1 Number of Drinks Per Day: 6 Total Drinks Per Week: 6 - Recreational Drug Use Recreational Drug Use: No Drug Use in Last 12 Months: No Recreational Drug Type: Reports: Marijuana/Hashish ED ROS GENERAL - Review of Systems Review Of Systems: See Below Constitutional: Reports: No Symptoms Respiratory: Reports: Shortness of Breath Cardiovascular: Reports: No Symptoms GI/Abdominal: Reports: No Symptoms Musculoskeletal: Reports: Neck Pain, Shoulder Pain, Back Pain, Leg Pain, Muscle Pain, Muscle Stiffness ED EXAM, GENERAL - Physical Exam Exam: See Below Exam Limited By: No Limitations General Appearance: Alert, WD/WN, No Apparent Distress Eye Exam: Bilateral Eye: Normal Inspection Ears: Normal External Exam, Normal Canal, Hearing Grossly Normal, Other ( Blocked by cerumen bilaterally) Nose: Normal Inspection, Normal Mucosa, No Blood Throat/Mouth: Normal Inspection, Normal Lips, Normal Teeth, Normal Gums, Normal Oropharynx, Normal Voice, No Airway Compromise Head: Atraumatic, Normocephalic Neck: Normal Inspection, Supple, Non-Tender, Full Range of Motion Respiratory/Chest: No Respiratory Distress, Lungs Clear, Normal Breath Sounds, No Accessory Muscle Use, Other (Tender midaxillary line bilaterally) Cardiovascular: Regular Rate, Rhythm, No Murmur GI/Abdominal: Soft, Non-Tender, Other (Obese) Course - Vital Signs Last Recorded V/S: Last Vital Signs Temp 97.4 F 08/21/17 05:17 Pulse 89 08/21/17 04:53 Resp 18 08/21/17 04:53 BP 166/92 H 08/21/17 04:53 Pulse Ox 96 08/21/17 04:53 - Orders/Labs/Meds Orders: Active Orders 24 hr Category Date Time Status Chest 2V [CR] Urgent Exams 08/21/17 05:22 Taken Meds: Medications Discontinued Medications Generic Name Dose Route Start Last Admin Trade Name Braeden PRN Reason Stop Dose Admin Alprazolam 0.5 mg 08/21/17 05:24 08/21/17 05:30 Xanax PO 08/21/17 05:25 0.5 mg ONETIME ONE Administration Ketorolac Tromethamine 60 mg 08/21/17 05:22 08/21/17 05:31 Toradol IM 08/21/17 05:23 60 mg ONETIME ONE Administration Departure - Departure Time of Disposition: 05:53 Disposition: Home, Self-Care 01 Condition: Fair Clinical Impression: Chest wall pain - Discharge Information Referrals: PCP,None [Primary Care Provider] - Forms: ED Department Discharge Additional Instructions: Please followup with your primary care provider in 3-5 days if not better, please call return to the emergency department with worsening of symptoms. - My Orders Last 24 Hours: My Active Orders 08/21/17 05:22 Chest 2V [CR] Urgent - Assessment/Plan Last 24 Hours: My Active Orders 08/21/17 05:22 Chest 2V [CR] Urgent Plan: Assessment Acuity = acute Site and laterality = chest wall pain Etiology = secondary to fall Manifestations = none Location of injury = Home Lab values = chest x-ray I did review films myself I cannot appreciate any acute process, the official read from radiology is pending Plan He had good relief of pain with Toradol IM injection and one Xanax 0.5 mg plan is follow-up primary care 3-5 days if not better This note was dictated using [employer] voice recognition software please call with any questions on syntax or alfonso.
--- NOTE | 2017-08-21 08:26 | CR ---
Chest 2V HISTORY: cp COMPARISON: None FINDINGS: Lungs appear clear and normally aerated. Cardiomediastinal silhouette is within normal limits. No vas cular redistribution or pleural fluid can be seen. Bony structures and soft tissues are unremarkable. IMPRESSION: No acute chest abnormality identified.
== END 2017-08-21 06:00 | disposition home or self-care (01) ==
LOC: JP.ED 04:36
DX: R07.89 Other chest pain (principal); I10 Essential (primary) hypertension; E03.9 Hypothyroidism, unspecified; K21.9 Gastro-esophageal reflux disease without esophagitis; Z87.891 Personal history of nicotine dependence; Z79.899 Other long term (current) drug therapy; W19.XXXA Unspecified fall, initial encounter
CPT/HCPCS: 71046; 96372; 99285; A9270; J1885

== ENCOUNTER 2017-09-04 02:50 | Emergency (ER) | payer MEDICAID ==
[2017-09-04 03:09] VITALS: BP 140/91
--- NOTE | 2017-09-04 03:38 | EDM.PDOC ---
ED HPI GENERAL MEDICAL PROBLEM - General Chief Complaint: General Stated Complaint: TWITCHING RIGHT EYE LID/JAW PAIN Time Seen by Provider: 09/04/17 03:15 Source of Information: Reports: Patient, Old Records, RN History Limitations: Reports: No Limitations - History of Present Illness INITIAL COMMENTS - FREE TEXT/NARRATIVE: 27 yo male presents from home via his own private vehicle for intermittent spasms of his upper R eyelid tonight. When I am examining him he mentions that he has numbness to the R jaw area for about a week. He thinks it might be from his C-PAP mask being too tight. He has not discussed this numbness with his doctor. Jessee is disabled, morbidly obese, and smokes cigarettes and has no interest in quitting. He also has chronic anxiety. He is on Eliquis. Onset: Today (eye twitching tonight, facial numbness on right) Onset Date: 09/04/17 Duration: Hour(s):, Intermittent (twitching of eye intermittent, jaw numbness for a week) Location: Reports: Face Quality: Reports: Other (no pain) Severity: Mild Improves with: Reports: None Worsens with: Reports: None Context: Reports: Other (smoker, chronic anxiety) Associated Symptoms: Reports: No Other Symptoms Treatments [employer] SCRE[employer]: Reports: Other (see below) (none) - Related Data Allergies Allergy/AdvReac Type Severity Reaction Status Date / Time No Known Allergies Allergy Verified 08/21/17 05:08 Home Meds: Home Meds Atenolol 100 mg PO DAILY 09/07/15 [History] Cholecalciferol (Vitamin D3) [D3-2000] 2,000 unit PO DAILY 09/07/15 [History] Divalproex Sodium [Depakote] 1,500 mg PO BEDTIME 09/07/15 [History] Glucosam/Chondroit/C/Manganese [Cosamin Ds Capsule] 2 each PO DAILY 09/07/15 [ History] Sertraline [Zoloft] 100 mg PO DAILY 09/20/15 [History] Desmopressin Acetate 0.4 mg PO BEDTIME 11/26/16 [History] Nicotine Polacrilex [Nicorelief] 2 mg CHEW Q2H PRN #0 gum 12/03/16 [Rx] ALPRAZolam [Alprazolam ER] 2 mg PO ASDIRECTED 02/19/17 [History] Gabapentin [Neurontin] 300 mg PO TID 02/19/17 [History] Warfarin Sodium 6.5 mg PO ASDIRECTED 02/19/17 [History] Warfarin Sodium 7.5 mg PO ASDIRECTED 02/19/17 [History] Haloperidol [Haldol] 0.5 mg PO TID PRN 06/28/17 [History] Furosemide 40 mg PO BID 07/11/17 [History] Acetaminophen 325 mg PO ASDIRECTED PRN 08/01/17 [History] Albuterol Sulfate 2.5 mg IH ASDIRECTED PRN 08/01/17 [History] Calcium Carbonate/Vitamin D3 [Calcium 600-Vit D3 800 Tablet] 1 tab PO BID [History] Omeprazole 20 mg PO DAILY 08/01/17 [History] Paliperidone Palmitate [Invega Sustenna] 234 mg IM ASDIRECTED 08/01/17 [History] Prasterone (DHEA)/Calcium Carb [DHEA] 1 tab PO DAILY 08/01/17 [History] hydrOXYzine HCl [Atarax] 25 mg PO Q6H 08/01/17 [History] Past Medical History HEENT History: Reports: Impaired Vision Cardiovascular History: Reports: Afib, Hypertension Respiratory History: Reports: Sleep Apnea, Other (See Below) Other Respiratory History: bipap Gastrointestinal History: Reports: Chronic Constipation, GERD Genitourinary History: Reports: Other (See Below) Other Genitourinary History: Nocturnal enuresis, nephrogenic diabetes insipidus Musculoskeletal History: Reports: Gout, Osteoarthritis Neurological History: Reports: Concussion Psychiatric History: Reports: Anxiety, Bipolar, Depression, Panic Attack, Psych Hospitalization(s), Schizophrenia Endocrine/Metabolic History: Reports: Hypothyroidism, Obesity/BMI 30+ Dermatologic History: Reports: Other (See Below) Other Dermatologic History: rash in skin folds - Infectious Disease History Infectious Disease History: Reports: None Social & Family History - Family History Family Medical History: Unobtainable - Tobacco Use Smoking Status *Q: Current Status Unknown Second Hand Smoke Exposure: Yes - Caffeine Use Caffeine Use: Reports: Energy Drinks - Recreational Drug Use Recreational Drug Use: No ED ROS GENERAL - Review of Systems Review Of Systems: See Below Constitutional: Reports: No Symptoms HEENT: Reports: Other (R upper eyelid twitching.) Respiratory: Reports: No Symptoms Cardiovascular: Reports: No Symptoms GI/Abdominal: Reports: No Symptoms : Reports: No Symptoms Musculoskeletal: Reports: No Symptoms Skin: Reports: No Symptoms Neurological: Reports: Numbness (R jaw area for a week) Psychiatric: Reports: No Symptoms ED EXAM, GENERAL - Physical Exam Exam: See Below Exam Limited By: No Limitations General Appearance: Alert, WD/WN, No Apparent Distress, Obese Eye Exam: Bilateral Eye: Normal Inspection (No twitching visible in the ear of the eyelid), PERRL Ears: Normal External Exam, Normal Canal, Hearing Grossly Normal, Normal TMs Ear Exam: Bilateral Ear: Auricle Normal, Canal Normal, TM normal Nose: Normal Inspection, Normal Mucosa, No Blood Throat/Mouth: Normal Inspection, Normal Lips, Normal Oropharynx, Normal Voice, No Airway Compromise Head: Atraumatic, Normocephalic Neck: Normal Inspection, Supple, Non-Tender Respiratory/Chest: No Respiratory Distress, Lungs Clear, Normal Breath Sounds, No Accessory Muscle Use Cardiovascular: Regular Rate, Rhythm, No Edema GI/Abdominal: Normal Bowel Sounds, Soft, Non-Tender, No Distention Back Exam: Normal Inspection. No: CVA Tenderness (R), CVA Tenderness (L) Extremities: Normal Inspection, Normal Range of Motion, Non-Tender, No Pedal Edema Neurological: Alert, Oriented, CN II-XII Intact, Normal Cognition, No Motor/ Sensory Deficits Psychiatric: Normal Affect, Normal Mood Skin Exam: Warm, Dry, Intact, Normal Color, No Rash Lymphatic: No Adenopathy Course - Vital Signs Last Recorded V/S: Last Vital Signs Temp 35.9 C 09/04/17 03:01 Pulse 118 H 09/04/17 03:01 Resp 18 09/04/17 03:01 BP 140/91 H 09/04/17 03:01 Pulse Ox 94 L 09/04/17 03:01 Departure - Departure Time of Disposition: 03:44 Disposition: Home, Self-Care 01 Condition: Good Clinical Impression: Blepharospasm, Anxiety, Tobacco abuse, Morbid obesity - Discharge Information Referrals: PCP,None [Primary Care Provider] - Forms: ED Department Discharge Additional Instructions: Continue your current medications. Avoid smoking. Follow up with neurology for answers to your questions. See your doctor to facilitate the referral.
== END 2017-09-04 04:01 | disposition home or self-care (01) ==
LOC: JP.ED 02:50
DX: G24.5 Blepharospasm (principal); F41.9 Anxiety disorder, unspecified; E66.01 Morbid (severe) obesity due to excess calories; I10 Essential (primary) hypertension; Z79.899 Other long term (current) drug therapy
CPT/HCPCS: 99283

== ENCOUNTER 2017-09-06 15:14 | Emergency (ER) | payer MEDICAID | END 2017-09-06 16:01 | disposition left against medical advice (07) | LOC: JP.ED 15:14 | DX: Z53.21 Procedure and treatment not carried out due to patient leaving prior to being seen by health care provider (principal) ==

== ENCOUNTER 2017-09-07 00:20 | Emergency (ER) | payer MEDICAID ==
[2017-09-07 00:48] VITALS: BP 151/86
--- NOTE | 2017-09-07 00:59 | EDM.PDOC ---
ED HPI GENERAL MEDICAL PROBLEM - General Chief Complaint: ENT Problem Stated Complaint: RIGHT EAR PAIN Time Seen by Provider: 09/07/17 00:40 Source of Information: Reports: Patient History Limitations: Reports: No Limitations - History of Present Illness INITIAL COMMENTS - FREE TEXT/NARRATIVE: 27 yo male here with pain and plugging of the R ear after using a Q tip on that ear. Wants his ear flushed. 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 (see below) (none) Right Ear Pain Score (Numeric/FACES): 3 - Related Data Allergies Allergy/AdvReac Type Severity Reaction Status Date / Time No Known Allergies Allergy Verified 09/07/17 00:32 Home Meds: Home Meds Atenolol 100 mg PO DAILY 09/07/15 [History] Cholecalciferol (Vitamin D3) [D3-2000] 2,000 unit PO DAILY 09/07/15 [History] Divalproex Sodium [Depakote] 1,500 mg PO BEDTIME 09/07/15 [History] Glucosam/Chondroit/C/Manganese [Cosamin Ds Capsule] 2 each PO DAILY 09/07/15 [ History] Sertraline [Zoloft] 100 mg PO DAILY 09/20/15 [History] Desmopressin Acetate 0.4 mg PO BEDTIME 11/26/16 [History] Nicotine Polacrilex [Nicorelief] 2 mg CHEW Q2H PRN #0 gum 12/03/16 [Rx] ALPRAZolam [Alprazolam ER] 2 mg PO ASDIRECTED 02/19/17 [History] Gabapentin [Neurontin] 300 mg PO TID 02/19/17 [History] Warfarin Sodium 6.5 mg PO ASDIRECTED 02/19/17 [History] Warfarin Sodium 7.5 mg PO ASDIRECTED 02/19/17 [History] Haloperidol [Haldol] 0.5 mg PO TID PRN 06/28/17 [History] Furosemide 40 mg PO BID 07/11/17 [History] Acetaminophen 325 mg PO ASDIRECTED PRN 08/01/17 [History] Albuterol Sulfate 2.5 mg IH ASDIRECTED PRN 08/01/17 [History] Calcium Carbonate/Vitamin D3 [Calcium 600-Vit D3 800 Tablet] 1 tab PO BID [History] Omeprazole 20 mg PO DAILY 08/01/17 [History] Paliperidone Palmitate [Invega Sustenna] 234 mg IM ASDIRECTED 08/01/17 [History] Prasterone (DHEA)/Calcium Carb [DHEA] 1 tab PO DAILY 08/01/17 [History] hydrOXYzine HCl [Atarax] 25 mg PO Q6H 08/01/17 [History] Past Medical History HEENT History: Reports: Impaired Vision Cardiovascular History: Reports: Afib, Hypertension Respiratory History: Reports: Sleep Apnea, Other (See Below) Other Respiratory History: bipap Gastrointestinal History: Reports: Chronic Constipation, GERD Genitourinary History: Reports: Other (See Below) Other Genitourinary History: Nocturnal enuresis, nephrogenic diabetes insipidus Musculoskeletal History: Reports: Gout, Osteoarthritis Neurological History: Reports: Concussion Psychiatric History: Reports: Anxiety, Bipolar, Depression, Panic Attack, Psych Hospitalization(s), Schizophrenia Endocrine/Metabolic History: Reports: Hypothyroidism, Obesity/BMI 30+ Dermatologic History: Reports: Other (See Below) Other Dermatologic History: rash in skin folds - Infectious Disease History Infectious Disease History: Reports: None - Past Surgical History Cardiovascular Surgical History: Reports: Other (See Below) Other Cardiovascular Surgeries/Procedures: cardioversion May 2017 Social & Family History - Family History Family Medical History: Unobtainable - Tobacco Use Smoking Status *Q: Current Every Day Smoker Years of Tobacco use: 2 Packs/Tins Daily: 1 Used Tobacco, but Quit: No Second Hand Smoke Exposure: No - Caffeine Use Caffeine Use: Reports: Energy Drinks - Alcohol Use Days Per Week of Alcohol Use: 0 - Recreational Drug Use Recreational Drug Use: No ED ROS ENT - Review of Systems Review Of Systems: See Below Constitutional: Reports: No Symptoms HEENT: Reports: Ear Pain, Hearing Loss Respiratory: Reports: No Symptoms Cardiovascular: Reports: No Symptoms Skin: Reports: No Symptoms Neurological: Reports: No Symptoms ED EXAM, ENT - Physical Exam Exam: See Below Exam Limited By: No Limitations General Appearance: Alert, WD/WN, No Apparent Distress, Obese Eye Exam: Bilateral Eye: Normal Inspection Ears: TM Obscured by Cerumen (bilaterally) Nose: Normal Inspection, Normal Mucousa, No Blood Mouth/Throat: Normal Inspection, Normal Lips, Normal Oropharynx Head: Atraumatic, Normocephalic Neck: Normal Inspection Respiratory/Chest: No Respiratory Distress, No Accessory Muscle Use Course - Vital Signs Text/Narrative:: R ear flushed revealing a dull R TM Last Recorded V/S: Last Vital Signs Temp 36.4 C 09/07/17 00:29 Pulse 88 09/07/17 00:29 Resp 16 09/07/17 00:29 BP 151/86 H 09/07/17 00:29 Pulse Ox 95 09/07/17 00:29 Departure - Departure Time of Disposition: 01:10 Disposition: Home, Self-Care 01 Condition: Good Clinical Impression: Impacted cerumen of both ears Otitis media Qualifiers: Otitis media type: suppurative Chronicity: acute Laterality: right Recurrence: not specified as recurrent Spontaneous tympanic membrane rupture: without spontaneous rupture Qualified Code(s): H66.001 - Acute suppurative otitis media without spontaneous rupture of ear drum, right ear - Discharge Information Referrals: PCP,None [Primary Care Provider] -
== END 2017-09-07 01:10 | disposition home or self-care (01) ==
LOC: JP.ED 00:20
DX: H66.001 Acute suppurative otitis media without spontaneous rupture of ear drum, right ear (principal); H61.23 Impacted cerumen, bilateral; F17.210 Nicotine dependence, cigarettes, uncomplicated; I48.91 Unspecified atrial fibrillation; I10 Essential (primary) hypertension; K21.9 Gastro-esophageal reflux disease without esophagitis; F41.9 Anxiety disorder, unspecified; F31.9 Bipolar disorder, unspecified; M19.90 Unspecified osteoarthritis, unspecified site; E66.9 Obesity, unspecified; E03.9 Hypothyroidism, unspecified; Z79.899 Other long term (current) drug therapy; Z79.01 Long term (current) use of anticoagulants
CPT/HCPCS: 99283

== ENCOUNTER 2017-09-08 06:48 | Emergency (ER) | payer MEDICAID ==
[2017-09-08] MEDS ORDERED: ALPRAZolam 0.25 MG Tab PO ONE (07:40)
--- NOTE | 2017-09-08 07:43 | EDM.PDOCBH ---
ED HPI GENERAL MEDICAL PROBLEM - General Chief Complaint: Behavioral/Psych Stated Complaint: ANXIETY Time Seen by Provider: 09/08/17 07:25 Source of Information: Reports: Patient, Old Records, RN Notes Reviewed History Limitations: Reports: No Limitations - History of Present Illness INITIAL COMMENTS - FREE TEXT/NARRATIVE: 27-year-old gentleman presents emergency department today complaint of anxiety, he has not taken his regular scheduled medications for anxiety nor has he followed up with his primary care provider. - Related Data Allergies Allergy/AdvReac Type Severity Reaction Status Date / Time No Known Allergies Allergy Verified 09/08/17 07:14 Home Meds: Home Meds Atenolol 100 mg PO DAILY 09/07/15 [History] Cholecalciferol (Vitamin D3) [D3-2000] 2,000 unit PO DAILY 09/07/15 [History] Divalproex Sodium [Depakote] 1,500 mg PO BEDTIME 09/07/15 [History] Glucosam/Chondroit/C/Manganese [Cosamin Ds Capsule] 2 each PO DAILY 09/07/15 [ History] Sertraline [Zoloft] 100 mg PO DAILY 09/20/15 [History] Desmopressin Acetate 0.4 mg PO BEDTIME 11/26/16 [History] ALPRAZolam [Alprazolam ER] 2 mg PO DAILY 02/19/17 [History] Gabapentin [Neurontin] 300 mg PO TID 02/19/17 [History] Haloperidol [Haldol] 0.5 mg PO TID PRN 06/28/17 [History] Furosemide 40 mg PO BID 07/11/17 [History] Acetaminophen 325 mg PO ASDIRECTED PRN 08/01/17 [History] Albuterol Sulfate 2.5 mg IH ASDIRECTED PRN 08/01/17 [History] Calcium Carbonate/Vitamin D3 [Calcium 600-Vit D3 800 Tablet] 1 tab PO BID [History] Omeprazole 20 mg PO DAILY 08/01/17 [History] Prasterone (DHEA)/Calcium Carb [DHEA] 1 tab PO DAILY 08/01/17 [History] hydrOXYzine HCl [Atarax] 25 mg PO Q6H 08/01/17 [History] Amoxicillin 875 mg PO BID #15 tab 09/07/17 [Rx] Apixaban [Eliquis] 5 mg PO BID 09/08/17 [History] Past Medical History HEENT History: Reports: Impaired Vision Cardiovascular History: Reports: Afib, Hypertension Respiratory History: Reports: Sleep Apnea, Other (See Below) Other Respiratory History: bipap Gastrointestinal History: Reports: Chronic Constipation, GERD Genitourinary History: Reports: Other (See Below) Other Genitourinary History: Nocturnal enuresis, nephrogenic diabetes insipidus Musculoskeletal History: Reports: Gout, Osteoarthritis Neurological History: Reports: Concussion Psychiatric History: Reports: Anxiety, Bipolar, Depression, Panic Attack, Psych Hospitalization(s), Schizophrenia Endocrine/Metabolic History: Reports: Hypothyroidism, Obesity/BMI 30+ Dermatologic History: Reports: Other (See Below) Other Dermatologic History: rash in skin folds - Infectious Disease History Infectious Disease History: Reports: None - Past Surgical History Cardiovascular Surgical History: Reports: Other (See Below) Other Cardiovascular Surgeries/Procedures: cardioversion May 2017 Social & Family History - Family History Family Medical History: Unobtainable - Tobacco Use Smoking Status *Q: Current Every Day Smoker Years of Tobacco use: 13 Packs/Tins Daily: 0.5 - Caffeine Use Caffeine Use: Reports: Energy Drinks ED ROS GENERAL - Review of Systems Review Of Systems: See Below Constitutional: Reports: No Symptoms Respiratory: Reports: No Symptoms Cardiovascular: Reports: No Symptoms Psychiatric: Reports: Anxiety ED EXAM, BEHAVIORAL HEALTH - Physical Exam Exam: See Below Exam Limited By: No Limitations General Appearance: Alert, WD/WN, No Apparent Distress Respiratory/Chest: No Respiratory Distress Psychiatric: Alert, Normal Affect, Normal Cognition, Normal Mood, Oriented COURSE, BEHAVIORAL HEALTH COMP - Course Vital Signs: Last Vital Signs Temp 97.9 F 09/08/17 07:25 Pulse 83 09/08/17 07:25 Resp 16 09/08/17 07:25 BP 137/74 09/08/17 07:25 Pulse Ox 96 09/08/17 07:25 Orders, Labs, Meds: Active Orders 24 hr Category Date Time Status ALPRAZolam [Xanax] Med 09/08/17 07:40 Once 0.5 mg PO ONETIME ONE Medication Orders Alprazolam (Xanax) 0.5 mg PO ONETIME ONE Stop: 09/08/17 07:41 Medications Generic Name Dose Route Start Last Admin Trade Name Freq PRN Reason Stop Dose Admin Alprazolam 0.5 mg 09/08/17 07:40 Xanax PO 09/08/17 07:41 ONETIME ONE Departure - Departure Time of Disposition: 07:42 Disposition: Home, Self-Care 01 Condition: Poor Clinical Impression: Anxiety - Discharge Information Referrals: PCP,None [Primary Care Provider] - Additional Instructions: Restart your regular medications, follow-up with your primary care provider in the next day for reexamination - My Orders Last 24 Hours: My Active Orders 09/08/17 07:40 ALPRAZolam [Xanax] 0.5 mg PO ONETIME ONE - Assessment/Plan Last 24 Hours: My Active Orders 09/08/17 07:40 ALPRAZolam [Xanax] 0.5 mg PO ONETIME ONE Plan: Assessment Acuity = acute Site and laterality = anxiety Etiology = generalized anxiety disorder Manifestations = none Location of injury = Home Lab values = none Plan Restart your regular medications follow-up with your primary care provider in the next 1-2 days for reevaluation This note was dictated using [employer] voice recognition software please call with any questions on syntax or grammar.
[2017-09-08 08:30] VITALS: BP 137/74
== END 2017-09-08 08:05 | disposition home or self-care (01) ==
LOC: JP.ED 06:48
DX: F41.9 Anxiety disorder, unspecified (principal); F17.210 Nicotine dependence, cigarettes, uncomplicated; I48.91 Unspecified atrial fibrillation; I10 Essential (primary) hypertension; K21.9 Gastro-esophageal reflux disease without esophagitis; F31.9 Bipolar disorder, unspecified; E03.9 Hypothyroidism, unspecified; E66.9 Obesity, unspecified; Z79.899 Other long term (current) drug therapy; Z68.44 Body mass index [BMI] 60.0-69.9, adult
CPT/HCPCS: 93005; 99284; A9270; 93010

== ENCOUNTER 2017-09-28 01:23 | Emergency (ER) | payer MEDICAID ==
[2017-09-28 01:44] VITALS: BP 150/105
[2017-09-28] MEDS ORDERED: ALPRAZolam 0.5 MG Tab PO ONE (01:49)
[2017-09-28] MEDS ORDERED: Ibuprofen 800 MG Tab PO ONE (01:54)
--- NOTE | 2017-09-28 01:56 | EDM.PDOC ---
ED HPI GENERAL MEDICAL PROBLEM - General Chief Complaint: General Stated Complaint: ANXIETY Time Seen by Provider: 09/28/17 01:40 Source of Information: Reports: Patient, Old Records, RN History Limitations: Reports: No Limitations - History of Present Illness INITIAL COMMENTS - FREE TEXT/NARRATIVE: 27 yo male presents stating that his Xanax Extended Release 2 mg tabs were stolen 3 days ago. Is now needing this med. Has not notified his primary or the police. Takes this med once every day. 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 below) (none) back pain Pain Score (Numeric/FACES): 3 - Related Data Allergies Allergy/AdvReac Type Severity Reaction Status Date / Time No Known Allergies Allergy Verified 09/28/17 01:38 Home Meds: Home Meds Atenolol 100 mg PO DAILY 09/07/15 [History] Cholecalciferol (Vitamin D3) [D3-2000] 2,000 unit PO DAILY 09/07/15 [History] Divalproex Sodium [Depakote] 1,500 mg PO BEDTIME 09/07/15 [History] Glucosam/Chondroit/C/Manganese [Cosamin Ds Capsule] 2 each PO DAILY 09/07/15 [ History] Sertraline [Zoloft] 100 mg PO DAILY 09/20/15 [History] Desmopressin Acetate 0.4 mg PO BEDTIME 11/26/16 [History] ALPRAZolam [Alprazolam ER] 2 mg PO DAILY 02/19/17 [History] Gabapentin [Neurontin] 300 mg PO TID 02/19/17 [History] Haloperidol [Haldol] 0.5 mg PO TID PRN 06/28/17 [History] Furosemide 40 mg PO BID 07/11/17 [History] Acetaminophen 325 mg PO ASDIRECTED PRN 08/01/17 [History] Albuterol Sulfate 2.5 mg IH ASDIRECTED PRN 08/01/17 [History] Calcium Carbonate/Vitamin D3 [Calcium 600-Vit D3 800 Tablet] 1 tab PO BID [History] Omeprazole 20 mg PO DAILY 08/01/17 [History] Prasterone (DHEA)/Calcium Carb [DHEA] 1 tab PO DAILY 08/01/17 [History] hydrOXYzine HCl [Atarax] 25 mg PO Q6H 08/01/17 [History] Amoxicillin 875 mg PO BID #15 tab 09/07/17 [Rx] Apixaban [Eliquis] 5 mg PO BID 09/08/17 [History] Past Medical History HEENT History: Reports: Impaired Vision Cardiovascular History: Reports: Afib, Hypertension Respiratory History: Reports: Sleep Apnea, Other (See Below) Other Respiratory History: bipap Gastrointestinal History: Reports: Chronic Constipation, GERD Genitourinary History: Reports: Other (See Below) Other Genitourinary History: Nocturnal enuresis, nephrogenic diabetes insipidus Musculoskeletal History: Reports: Gout, Osteoarthritis Neurological History: Reports: Concussion Psychiatric History: Reports: Anxiety, Bipolar, Depression, Panic Attack, Psych Hospitalization(s), Schizophrenia Endocrine/Metabolic History: Reports: Hypothyroidism, Obesity/BMI 30+ Dermatologic History: Reports: Other (See Below) Other Dermatologic History: rash in skin folds - Infectious Disease History Infectious Disease History: Reports: None - Past Surgical History Cardiovascular Surgical History: Reports: Other (See Below) Other Cardiovascular Surgeries/Procedures: cardioversion May 2017 Social & Family History - Family History Family Medical History: Unobtainable - Tobacco Use Smoking Status *Q: Current Every Day Smoker Years of Tobacco use: 2 Packs/Tins Daily: 1 - Caffeine Use Caffeine Use: Reports: Soda - Recreational Drug Use Recreational Drug Use: No Drug Use in Last 12 Months: Yes ED ROS GENERAL - Review of Systems Review Of Systems: See Below Constitutional: Reports: No Symptoms HEENT: Reports: No Symptoms Respiratory: Reports: No Symptoms Cardiovascular: Reports: No Symptoms Musculoskeletal: Reports: Back Pain Skin: Reports: No Symptoms Psychiatric: Reports: Anxiety ED EXAM, GENERAL - Physical Exam Exam: See Below Exam Limited By: No Limitations General Appearance: Alert, WD/WN, No Apparent Distress, Obese Cardiovascular: Regular Rate, Rhythm Psychiatric: Normal Affect, Normal Mood Skin Exam: Warm, Dry, Intact, Normal Color, No Rash Course - Vital Signs Last Recorded V/S: Last Vital Signs Temp 36.8 C 09/28/17 01:45 Pulse 72 09/28/17 01:45 Resp 18 09/28/17 01:45 BP 150/105 H 09/28/17 01:45 Pulse Ox 94 L 09/28/17 01:45 - Orders/Labs/Meds Meds: Medications Discontinued Medications Generic Name Dose Route Start Last Admin Trade Name Braeden PRN Reason Stop Dose Admin Alprazolam 1 mg 09/28/17 01:49 Xanax PO 09/28/17 01:50 NOW ONE Departure - Departure Time of Disposition: 01:56 Disposition: Home, Self-Care 01 Condition: Good Clinical Impression: Morbid obesity with BMI of 70 and over, adult, Anxiety - Discharge Information Referrals: PCP,None [Primary Care Provider] -
[2017-09-28] MEDS ORDERED: Ibuprofen 800 MG Tab ONE (01:59)
== END 2017-09-28 02:06 | disposition home or self-care (01) ==
LOC: JP.ED 01:23
DX: E66.01 Morbid (severe) obesity due to excess calories (principal); Z68.45 Body mass index [BMI] 70 or greater, adult; F41.9 Anxiety disorder, unspecified; F17.210 Nicotine dependence, cigarettes, uncomplicated; I48.91 Unspecified atrial fibrillation; I10 Essential (primary) hypertension; M19.90 Unspecified osteoarthritis, unspecified site; F31.9 Bipolar disorder, unspecified; E03.9 Hypothyroidism, unspecified; Z79.899 Other long term (current) drug therapy
CPT/HCPCS: 99283; A9270

== ENCOUNTER 2017-09-28 18:27 | Emergency (ER) | payer MEDICAID ==
[2017-09-28 19:30] VITALS: BP 132/85
[2017-09-28] MEDS ORDERED: ALPRAZolam 0.25 MG Tab PO ONE (19:39)
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
== END 2017-09-28 20:00 | disposition home or self-care (01) ==
LOC: JP.ED 18:27
DX: F41.9 Anxiety disorder, unspecified (principal); F31.9 Bipolar disorder, unspecified; M19.90 Unspecified osteoarthritis, unspecified site; I10 Essential (primary) hypertension; I48.91 Unspecified atrial fibrillation; E03.9 Hypothyroidism, unspecified; Z79.899 Other long term (current) drug therapy
CPT/HCPCS: 99283; A9270